=== PATIENT | female | born 1965 | race Caucasian/White ===

== ENCOUNTER 2020-07-13 16:02 | Emergency (ER) | payer MEDICARE, MEDICAID, SELFPAY ==
[2020-07-13 16:19] VITALS: BP 138/94; PULSE 95; RESP 18; TEMP 36.7; O2SAT 97
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
[2020-07-13] MEDS: Ketorolac Tromethamine 30 MG/ML VIAL IM (17:02)
[2020-07-13 17:09] VITALS: BP 138/94; PULSE 95; RESP 18; TEMP 36.7; O2SAT 97; BMI 28.8
== END 2020-07-13 17:57 | disposition home or self-care (01) ==
PROVIDERS: Emergency Provider Internal Medicine; PCP Family Medicine
DX: T23.221A Burn of second degree of single right finger (nail) except thumb, initial encounter (principal); T23.191A Burn of first degree of multiple sites of right wrist and hand, initial encounter; T31.0 Burns involving less than 10% of body surface; X10.2XXA Contact with fats and cooking oils, initial encounter; Y93.G3 Activity, cooking and baking; Y92.010 Kitchen of single-family (private) house as the place of occurrence of the external cause; Y99.9 Unspecified external cause status
CPT/HCPCS: 90471; 90715; 96372; 99284; J1885

== ENCOUNTER 2020-07-16 07:55 | Outpatient (RCR) | payer MEDICARE, MEDICAID, SELFPAY | END 2020-07-28 12:00 | disposition home or self-care (01) | LOC: HO.WCC 07:55 | PROVIDERS: PCP Family Medicine; Visit Provider Physician Assistant Surgical | DX: T23.221A Burn of second degree of single right finger (nail) except thumb, initial encounter (principal); T31.0 Burns involving less than 10% of body surface; X10.2XXA Contact with fats and cooking oils, initial encounter | CPT/HCPCS: 99213 ==

== ENCOUNTER 2020-08-15 07:57 | Emergency (ER) | payer MEDICARE, MEDICAID, SELFPAY ==
[2020-08-15 08:10] VITALS: BP 131/71; PULSE 84; RESP 20; TEMP 36.8; O2SAT 91; BMI 31.5
--- NOTE | 2020-08-15 08:35 | XR_ITS ---
EXAMINATION: XR CHEST CLINICAL INFORMATION: Shortness breath COMPARISON: Chest x-ray 03/25/2017 TECHNIQUE: Frontal view of the chest was obtained. FINDINGS: The heart size is within normal limits. Lungs are well expanded. No focal airspace consolidation is seen. There is mild interstitial prominence which is unchanged compared to prior. There is no evidence of pneumothorax or pleural effusion. No acute osseous findings. Mild left convex curvature of the spine is unchanged. XR/XR chest 1V IMPRESSION: No evidence of acute pulmonary disease.
--- NOTE | 2020-08-15 08:43 | ED_ITS ---
HPI - URI/Sore Throat General Chief Complaint: Headache Stated Complaint: FEVER COUGH Time Seen by Provider: 08/15/20 08:25 Source: patient Mode of arrival: ambulatory Limitations: no limitations History of Present Illness HPI Narrative: 55-year-old female remote history of asthma, patient presented with upper respiratory infection symptoms of low-grade fever, runny/congested nose, cough, difficulty breathing, and headache. Symptoms started yesterday. Patient declined history of exposure to somebody sick, patient has been doing isolation precaution for COVID-19 outbreak. Related Data Previous Rx's Medication Instructions Recorded dicyclomine 20 mg tablet 20 mg PO QID #360 tab 07/07/20 gabapentin 100 mg PO TID #14 cap 07/13/20 ibuprofen 600 mg PO Q8H PRN #30 tab 07/13/20 dexlansoprazole 60 mg 60 mg PO DAILY 30 Days #30 cap 08/06/20 capsule,biphase delayed release albuterol sulfate [ProAir HFA] 2 puff INHALATION Q6H PRN #18 g 08/15/20 oxymetazoline [Afrin 2 spray INTRANASAL Q12H PRN 3 Days 08/15/20 (oxymetazoline)] #15 ml prednisone 20 mg PO BID #10 tab 08/15/20 Allergies Allergy/AdvReac Type Severity Reaction Status Date / Time morphine [MORPHINE] Allergy Intermediate RAPID Verified 07/13/20 16:55 HEART RATE,ANXIOUS, swelling and rash Review of Systems Review of Systems: All other systems are reviewed and are negative Constitutional: Reports as per HPI and Reports no additional constitutional complaints Eyes: Reports as per HPI and Reports no additional eye complaints Reports system reviewed and no additional complaints, except as documented Cardiovascular: Reports as per HPI and Reports no additional cardiovascular complaints Respiratory: Reports as per HPI and Reports no additional respiratory complaints Gastrointestinal: Reports as per HPI and Reports no additional gastrointestinal complaints Genitourinary: Reports no additional female genitourinary complaints Musculoskeletal: Reports no additional musculoskeletal complaints Skin/Breast: Reports system reviewed and no additional complaints, except as docu Psychiatric: Reports no additional psychiatric complaints Endocrine: Reports no additional endocrine complaints Hematologic/Lymphatic: Reports no additional hematologic/lymphatic complaints Allergic/Immunologic: Reports no additional allergic/immunologic complaints Reports system reviewed and no additional complaints, except as documented and Reports Abnormal speech present [facility] Past Medical History Medical History Head injury High cholesterol Surgical History History of eye removal Social History Social History Smoking Status: Current every day smoker Smoked in Last 30 Days: No Use of substances other than those prescribed or required for medical reasons: No Advance Directives: Yes Advance Directives Information Provided: No Advance Directives on File: No Physical Exam Vital Signs: Vital Signs: Last Vital Signs Temp 98.3 F 08/15/20 08:10 Pulse 65 08/15/20 10:07 Resp 12 08/15/20 10:07 BP 131/74 08/15/20 10:07 Pulse Ox 91 L 08/15/20 08:10 Body Mass Index 31.5 Vital signs have been reviewed as normal and appeared to be correct. Blood pressure in the high range. Heart rate normal. Respiration rate normal. Temperature normal. Oxygen saturation in the low range. Appearance: Alert. Oriented X3. No acute distress. Head: Normal external exam. Normocephalic. Atraumatic. No Art signs noted. No raccoon eyes noted Eyes: PERRLA. EOMI. Conjunctiva and sclera normal. Eyelids normal. ENT: EAC normal. TM's Normal. Pharynx normal. Uvula midline. Dry mucous membranes. No trismus noted. No drooling noted. No muffled voice noted. Neck: Normal inspection. Neck supple. FROM. No adenopathy. Thyroid Normal. No meningeal signs. No neck mass noted. CVS: Normal heart rate and rhythm. Heart sound normal. No murmurs noted. Pulses normal throughout. Respiratory: No respiratory distress. Painless inspiration. Breath sounds normal. Positive expiratory diffuse wheezing/rales/rhonchi noted. Chest nontender. No accessory muscle usage noted or decreased air movement noted. Abdomen: Soft and nontender. Bowel sounds normal in all 4 quadrants. No distention noted. No organomegaly noted. No visible injury noted. Back: No CVA tenderness. Full range of motion noted. Skin: Skin warm and dry. Normal skin color. Normal skin turgor. No rashes/lesions/lacerations noted. Extremities: No lower extremity edema. Extremities exhibit normal range of motion. Extremities nontender. Neuro: Oriented X 3. No motor deficit. No sensory deficit. Reflexes normal. MDM - URI/Sore Throat MDM Narrative Medical decision making narrative: Assessment and plan. 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 Will discharge the patient with nasal decongestant, bronchodilator, prednisone. Lab Data Attestation: I reviewed the patient's lab results. Result diagrams: 08/15/20 09:11 08/15/20 09:11 Labs: Lab Results 08/15/20 08/15/20 08/15/20 Range/Units 09:11 09:11 09:11 WBC 11.4 H (4.8-10.8) X10*3/uL RBC 4.89 (4.20-5.50) X10*6/uL Hgb 14.8 (12.0-16.0) g/dl Hct 45.2 (37-47) % MCV 92.4 (80-98) fL MCH 30.3 (27.0-33.0) pg MCHC 32.7 (31.0-35.0) g/dl RDW 14.1 (11.0-16.0) % Plt Count 308 (160-400) X10*3/uL MPV 9.4 (9.4-12.3) fL Immature Gran % (Auto) 0.4 (0.0-0.4) % Neut % (Auto) 54.9 (45-73) % Lymph % (Auto) 33.0 (20-40) % Curry % (Auto) 7.0 (2-11) % Eos % (Auto) 3.7 (0-4) % Baso % (Auto) 1.0 (0-2) % Lymph # (Auto) 3.8 (1.2-4.9) X10*3/uL Curry # (Auto) 0.8 (0.1-1.2) X10*3/uL Eos # (Auto) 0.4 (0.0-0.4) X10*3/uL Baso # (Auto) 0.1 (0.0-0.2) X10*3/uL Abs Immat Gran (auto) 0.05 H (0.00-0.03) X10*3/uL Absolute Neuts (auto) 6.3 (2.0-8.3) X10*3/uL Absolute Nucleated RBC 0.000 (0.0-0.012) X10*3/uL Nucleated RBC % (auto) 0.0 (0.0-0.2) /100WBC Sodium 143 (135-145) mmol/L Potassium 4.4 (3.3-5.1) mmol/l Chloride 101 (96-108) mmol/L Carbon Dioxide 36 H (22-29) mmol/L Anion Gap 10 L (12-20) BUN 12 (9-16) mg/dL Creatinine 1.00 (0.5-1.4) mg/dL Estim Creat Clear Calc 63.9 Estimated GFR 58 Random Glucose 92 (60-115) mg/dL Lactic Acid 1.5 (0.5-2.0) mmol/L Calcium 9.2 (8.4-10.2) mg/dL Total Bilirubin 0.5 (0.0-1.0) mg/dL Direct Bilirubin 0.3 (0.0-0.5) mg/dL AST 44 H (5-31) U/L ALT 52 H (0-31) U/L Alkaline Phosphatase 112 (39-117) U/L Total Protein 6.7 (6.5-8.0) g/dL Albumin 4.1 (3.5-5.0) g/dL COVID-19 ([facility]) (Negative) COVID-19 Clin Com 08/15/20 Range/Units 09:11 WBC (4.8-10.8) X10*3/uL RBC (4.20-5.50) X10*6/uL Hgb (12.0-16.0) g/dl Hct (37-47) % MCV (80-98) fL MCH (27.0-33.0) pg MCHC (31.0-35.0) g/dl RDW (11.0-16.0) % Plt Count (160-400) X10*3/uL MPV (9.4-12.3) fL Immature Gran % (Auto) (0.0-0.4) % Neut % (Auto) (45-73) % Lymph % (Auto) (20-40) % Curry % (Auto) (2-11) % Eos % (Auto) (0-4) % Baso % (Auto) (0-2) % Lymph # (Auto) (1.2-4.9) X10*3/uL Curry # (Auto) (0.1-1.2) X10*3/uL Eos # (Auto) (0.0-0.4) X10*3/uL Baso # (Auto) (0.0-0.2) X10*3/uL Abs Immat Gran (auto) (0.00-0.03) X10*3/uL Absolute Neuts (auto) (2.0-8.3) X10*3/uL Absolute Nucleated RBC (0.0-0.012) X10*3/uL Nucleated RBC % (auto) (0.0-0.2) /100WBC Sodium (135-145) mmol/L Potassium (3.3-5.1) mmol/l Chloride (96-108) mmol/L Carbon Dioxide (22-29) mmol/L Anion Gap (12-20) BUN (9-16) mg/dL Creatinine (0.5-1.4) mg/dL Estim Creat Clear Calc Estimated GFR Random Glucose (60-115) mg/dL Lactic Acid (0.5-2.0) mmol/L Calcium (8.4-10.2) mg/dL Total Bilirubin (0.0-1.0) mg/dL Direct Bilirubin (0.0-0.5) mg/dL AST (5-31) U/L ALT (0-31) U/L Alkaline Phosphatase (39-117) U/L Total Protein (6.5-8.0) g/dL Albumin (3.5-5.0) g/dL COVID-19 ([facility]) Negative (Negative) COVID-19 Clin Com See Note Imaging Data Chest x-ray: Radiologist's impression: No acute intra- thoracic pathology Discharge Plan Discharge Clinical Impression: Upper respiratory infection, viral, Headache, Acute bronchitis Patient Disposition: Home, Self-Care Instructions: Acute Bronchitis (ED) Prescriptions: New Afrin (oxymetazoline) 0.05 % mist 2 spray intranasal Q12H PRN (Reason: nasal congestion) 3 Days Qty: 15 RF: 0 albuterol sulfate [ProAir HFA] 90 mcg/actuation HFA aerosol inhaler 2 puff inhalation Q6H PRN (Reason: shortness of breath or wheezing) Qty: 18 RF: 0 prednisone 20 mg tablet 20 mg PO BID Qty: 10 RF: 0 No Action dicyclomine 20 mg tablet 20 mg PO QID Qty: 360 RF: 1 Dexilant 60 mg capsule,biphase delayed releas 60 mg PO DAILY 30 Days Qty: 30 RF: 1 ibuprofen 600 mg tablet 600 mg PO Q8H PRN (Reason: pain) Qty: 30 RF: 0 gabapentin 100 mg capsule 100 mg PO TID Qty: 14 RF: 0
[2020-08-15] MEDS: 0.9 % Sodium Chloride 500 ML 1000 ML IV (09:12)
[2020-08-15] MEDS: Ketorolac Tromethamine 15 MG/ML VIAL IV (09:12)
[2020-08-15 09:19] LABS: MANUAL DIFF FLAG NO
[2020-08-15 09:20] LABS: Basophils Absolute Auto 0.1 X10*3/uL (0.0-0.2); Eosinophils Absolute Auto 0.4 X10*3/uL (0.0-0.4); Eosinophils Percent Auto 3.7 % (0-4); Hematocrit 45.2 % (37-47); Hemoglobin 14.8 g/dl (12.0-16.0); Imm Gran Abs Auto 0.05 X10*3/uL (0.00-0.03); Imm Gran Pct Auto 0.4 % (0.0-0.4); Lymphocytes Absolute Auto 3.8 X10*3/uL (1.2-4.9); Mean Corpuscular HGB Conc 32.7 g/dl (31.0-35.0); Mean Corpuscular Hemoglobin 30.3 pg (27.0-33.0); Mean Corpuscular Volume 92.4 fL (80-98); Mean Platelet Volume 9.4 fL (9.4-12.3); Monocytes Absolute Auto 0.8 X10*3/uL (0.1-1.2); Neutrophils Absolute Auto 6.3 X10*3/uL (2.0-8.3); Neutrophils Percent Auto 54.9 % (45-73); Platelet Count 308 X10*3/uL (160-400); Red Blood Count 4.89 X10*6/uL (4.20-5.50); Red Cell Distribution Width 14.1 % (11.0-16.0); White Blood Count 11.4 X10*3/uL (4.8-10.8)
[2020-08-15 09:50] LABS: COVID-19 Test Negative (Negative); IDNOW Serial# 9DD0AD1C
[2020-08-15 09:53] LABS: Lactic Acid 1.5 mmol/L (0.5-2.0)
[2020-08-15 09:58] LABS: Alanine Aminotransferase 52 U/L (0-31); Albumin Level 4.1 g/dL (3.5-5.0); Alkaline Phosphatase 112 U/L (39-117); Anion Gap 10 (12-20); Aspartate Amino Transferase 44 U/L (5-31); Bilirubin Direct 0.3 mg/dL (0.0-0.5); Bilirubin Total 0.5 mg/dL (0.0-1.0); Blood Urea Nitrogen 12 mg/dL (9-16); Carbon Dioxide 36 mmol/L (22-29); Chloride 101 mmol/L (96-108); Creatinine Clr Calc Pharmacy 63.9; Estimated Glomerular Filt Rate 58; Glucose Random 92 mg/dL (60-115); Potassium 4.4 mmol/l (3.3-5.1); Sodium 143 mmol/L (135-145); Total Protein 6.7 g/dL (6.5-8.0)
[2020-08-15 10:01] LABS: Calcium 9.2 mg/dL (8.4-10.2)
[2020-08-15 10:07] VITALS: BP 131/74; PULSE 65; RESP 12
== END 2020-08-15 11:35 | disposition home or self-care (01) ==
PROVIDERS: Emergency Provider Emergency Medicine; PCP Family Medicine
DX: J06.9 Acute upper respiratory infection, unspecified (principal); J20.8 Acute bronchitis due to other specified organisms; R50.9 Fever, unspecified; R51.9 Headache, unspecified; R05 Cough; Z20.828 Contact with and (suspected) exposure to other viral communicable diseases; Z79.899 Other long term (current) drug therapy; F17.200 Nicotine dependence, unspecified, uncomplicated; Z71.6 Tobacco abuse counseling
CPT/HCPCS: 36415; 71045; 80048; 80076; 83605; 85025; 87040; 87635; 96372; 99284; 99285; J1885

== ENCOUNTER 2020-08-22 05:04 | Emergency (ER) | payer MEDICARE, MEDICAID, SELFPAY ==
[2020-08-22 05:07] VITALS: BP 114/73; PULSE 69; RESP 20; TEMP 36.1; O2SAT 93; BMI 29.7
--- NOTE | 2020-08-22 05:25 | XR_ITS ---
EXAMINATION: XR CHEST CLINICAL INFORMATION: Dyspnea COMPARISON: 08/15/2020 TECHNIQUE: Frontal view of the chest was obtained. FINDINGS: The lungs are clear with no focal consolidation. No evidence of pneumothorax, pulmonary edema, or pleural effusions. The cardiomediastinal silhouette is unremarkable. No acute osseous findings. XR/XR chest 1V IMPRESSION: No acute cardiopulmonary findings.
--- NOTE | 2020-08-22 05:25 | ED.URI ---
HPI - URI/Sore Throat General Chief Complaint: General Medical Stated Complaint: Cough/Headache Time Seen by Provider: 08/22/20 05:24 Source: patient and old records reviewed Mode of arrival: ambulatory Limitations: no limitations History of Present Illness MD elicited complaint: cough and other (headaches) Pertinent past history: asthma Onset (ago): week(s) (1) Consistency: constant Severity: similar to previous episodes Description of mucous: clear Able to tolerate fluids by mouth: Yes Relieving factors: nothing Associated symptoms: headache and cough Treatments prior to arrival: cold medicine and other (prednisone, nebulizer treatments) Related Data Previous Rx's Medication Instructions Recorded dicyclomine 20 mg tablet 20 mg PO QID #360 tab 07/07/20 gabapentin 100 mg PO TID #14 cap 07/13/20 ibuprofen 600 mg PO Q8H PRN #30 tab 07/13/20 dexlansoprazole 60 mg 60 mg PO DAILY 30 Days #30 cap 08/06/20 capsule,biphase delayed release albuterol sulfate [ProAir HFA] 2 puff INHALATION Q6H PRN #18 g 08/15/20 oxymetazoline [Afrin 2 spray INTRANASAL Q12H PRN 3 Days 08/15/20 (oxymetazoline)] #15 ml prednisone 20 mg PO BID #10 tab 08/15/20 albuterol sulfate 2.5 mg INHALATION Q4-6H PRN #75 ml 08/22/20 doxycycline hyclate 100 mg PO BID 7 Days #14 tab 08/22/20 hydrocodone-homatropine 5 ml PO Q6H PRN #60 ml 08/22/20 Allergies Allergy/AdvReac Type Severity Reaction Status Date / Time morphine [MORPHINE] Allergy Intermediate RAPID Verified 07/13/20 16:55 HEART RATE,ANXIOUS, swelling and rash Review of Systems Review of Systems: Constitutional : No Fever, No Chills ENT/Mouth : No sore throat, No Rhinorrhea, No Swallowing Difficulty Eyes: No Eye Pain, No Swelling, No Redness Cardiovascular : No Chest Pain, positive SOB, No Orthopnea, no Edema Respiratory : pos Cough, No Sputum, pos Wheezing, positive dyspnea Gastrointestinal : No Nausea, No Vomiting, No Diarrhea, No abdominal Pain, No Hematochezia, No Melena Genitourinary : No Dysuria, No Urinary Frequency, No Hematuria Musculoskeletal : No joint pain, No Myalgias Skin : No Skin Lesions, No rash Neuro : No Weakness, No Numbness, No Dizziness, pos Headache Psych : No Anxiety/Panic, No Depression Heme/Lymph: No Bruising, No Lymphadenopathy Endocrine : No Polyuria, No Polydipsia All other systems reviewed and are negative [facility] Past Medical History Attestation statement: The following information was validated with the patient. Medical History (Updated 08/22/20 @ 07:02 by May Palomo DO) Asthma Head injury High cholesterol Surgical History History of eye removal Social History Social History (Updated 08/22/20 @ 05:33 by May Palomo DO) Smoking Status: Current every day smoker Use of substances other than those prescribed or required for medical reasons: No Advance Directives: No Advance Directives Information Provided: No Physical Exam Vital Signs: Vital Signs: Last Vital Signs Temp 99.3 F 08/22/20 06:00 Pulse 69 08/22/20 06:00 Resp 18 08/22/20 06:00 BP 122/45 L 08/22/20 06:00 Pulse Ox 94 08/22/20 06:28 Body Mass Index 29.7 Appearance: Alert. Oriented X3. No acute distress. Eyes: Pupils equal, round and reactive to light. ENT: Pharynx normal. Neck: Normal inspection. Neck supple. CVS: Normal heart rate and rhythm. Pulses normal. Respiratory: No respiratory distress. Breath sounds diffuse end exp wheezes Abdomen: Soft and nontender. Skin: Skin warm and dry. Normal skin color. Normal skin turgor. Extremities: No lower extremity edema. No calf ttp Neuro: Oriented X 3. No motor deficit. No sensory deficit. Course Course Course Narrative: feels better, clear lungs, no hypoxia stable for DC 97% on RA wants to leave, admission discharge rn to follow up with COVID results - patient aware WBC 17 due to steroids - just completed course has no fevers and negative CXR MDM - URI/Sore Throat MDM Narrative Medical decision making narrative: 55 yo female with hx of asthma just seen 1 week ago negative COVID dx with bronchitis - sent home on steroids, at this time will need labs, IV steroids, IV magnesium, CXR, repeat COVID swab, dispo per results and findings. Lab Data Result diagrams: 08/22/20 06:23 08/22/20 06:22 Labs: Lab Results 08/22/20 08/22/20 Range/Units 06:22 06:22 Hold Blue Top SEE NOTE Sodium 137 (135-145) mmol/L Potassium 4.4 (3.3-5.1) mmol/l Chloride 100 (96-108) mmol/L Carbon Dioxide 28 (22-29) mmol/L Anion Gap 13 (12-20) BUN 17 H (9-16) mg/dL Creatinine 0.84 (0.5-1.4) mg/dL Estim Creat Clear Calc 74.0 Estimated GFR > 60 Random Glucose 100 (60-115) mg/dL Calcium 8.8 (8.4-10.2) mg/dL Discharge Plan Discharge Clinical Impression: Bronchitis Patient Disposition: Home, Self-Care Instructions: Acute Bronchitis (ED) Additional Instructions: return to ED for any worsening symptoms or concerns Prescriptions: New hydrocodone-homatropine 5-1.5 mg/5 mL (5 mL) syrup 5 ml PO Q6H PRN (Reason: cough) Qty: 60 RF: 0 doxycycline hyclate 100 mg tablet 100 mg PO BID 7 Days Qty: 14 RF: 0 albuterol sulfate 2.5 mg /3 mL (0.083 %) solution for nebulization 2.5 mg inhalation Q4-6H PRN (Reason: shortness of breath or wheezing) Qty: 75 RF: 0 No Action dicyclomine 20 mg tablet 20 mg PO QID Qty: 360 RF: 1 Dexilant 60 mg capsule,biphase delayed releas 60 mg PO DAILY 30 Days Qty: 30 RF: 1 Afrin (oxymetazoline) 0.05 % mist 2 spray intranasal Q12H PRN (Reason: nasal congestion) 3 Days Qty: 15 RF: 0 albuterol sulfate [ProAir HFA] 90 mcg/actuation HFA aerosol inhaler 2 puff inhalation Q6H PRN (Reason: shortness of breath or wheezing) Qty: 18 RF: 0 prednisone 20 mg tablet 20 mg PO BID Qty: 10 RF: 0 ibuprofen 600 mg tablet 600 mg PO Q8H PRN (Reason: pain) Qty: 30 RF: 0 gabapentin 100 mg capsule 100 mg PO TID Qty: 14 RF: 0 Referrals: Sofia Gonzalez MD [Primary Care Provider] - 2 days (if not better) Print Language: Montenegrin
[2020-08-22 05:41] VITALS: PULSE 69; O2SAT 93
[2020-08-22] MEDS: Albuterol Sulfate (0.083%) 2.5 MG/3 ML VIAL.NEB 5 MG INHALE (05:41)
[2020-08-22] MEDS: Magnesium Sulfate/H2O 2 GM/50 ML PIGGYBACK IV (05:44)
[2020-08-22] MEDS: methylPREDNISolone Sod Succ/PF 125 MG/2 ML VIAL 60 MG IVPUSH (05:44)
--- NOTE | 2020-08-22 05:45 | PC.NURSE ---
PATIENT REFUSED TYLENOL AND HYDROCODONE LIQUID. PT REQUESTING IV PAIN MEDICATION . AWARE. PATIENT MEDICATED WITH VENTOLIN, SOLUMEDROL, AND MAGNESIUM SULFATE ORDERED. RESPIRATORY THERAPIST ALSO AT BEDSIDE. 98% ON ROOM AIR CURRENTLY AFTER VENTOLIN INITIATED. PT IS AUSTR[place] SPEAKING.
[2020-08-22 06:00] VITALS: BP 122/45; PULSE 69; RESP 18; TEMP 37.4; O2SAT 93
[2020-08-22] MEDS: Ketorolac Tromethamine 30 MG/ML VIAL IVPUSH (06:27)
[2020-08-22 06:28] VITALS: O2SAT 94
[2020-08-22 06:42] LABS: Hematocrit 43.3 % (37-47); Hemoglobin 14.3 g/dl (12.0-16.0); Mean Corpuscular Hemoglobin 29.9 pg (27.0-33.0); Mean Corpuscular Volume 90.6 fL (80-98); Mean Platelet Volume 9.2 fL (9.4-12.3); Platelet Count 334 X10*3/uL (160-400); Red Blood Count 4.78 X10*6/uL (4.20-5.50); White Blood Count 17.6 X10*3/uL (4.8-10.8)
[2020-08-22 06:58] LABS: Anion Gap 13 (12-20); Blood Urea Nitrogen 17 mg/dL (9-16); Calcium 8.8 mg/dL (8.4-10.2); Carbon Dioxide 28 mmol/L (22-29); Chloride 100 mmol/L (96-108); Estimated Glomerular Filt Rate > 60; Glucose Random 100 mg/dL (60-115); Potassium 4.4 mmol/l (3.3-5.1); Sodium 137 mmol/L (135-145)
[2020-08-22 07:13] LABS: SLIDE REVIEW MANUAL DIFF
[2020-08-22 07:16] LABS: Atypical Lymph Absolute Manual 0.2 x10*3/uL; Atypical Lymphs Percent Manual 1 % (0-6); Basophils Abs Manual 0.2 X10*3/uL (0.0-0.3); Basophils Percent Manual 1 % (0-1); Eosinophils Absolute Manual 0.4 X10*3/UL (0.0-0.8); Eosinophils Percent Manual 2 % (0-4); Lymphocytes Absolute Manual 7.9 X10*3/uL (0.6-4.8); Lymphocytes Percent Manual 45 % (20-40); Metamyelocytes Absolute 0.4 X10*3/uL; Metamyelocytes Percent 2 %; Monocytes Absolute Manual 0.7 X10*3/uL (0.0-1.2); Monocytes Percent Manual 4 % (2-11); Neutrophils Percent Manual 45 % (45-73)
[2020-08-22 07:17] LABS: Band Neutrophils Percent 0 % (3-5); Neutrophils Absolute Manual 7.9 X10*3/uL (2.2-7.9); Platelet Estimate NORMAL (NORMAL); Platelet Morphology Comment NORMAL; RBC Morphology NORMAL
[2020-08-22 07:18] VITALS: O2SAT 97
[2020-08-22 07:23] LABS: Influenza A PCR NEGATIVE (Negative); Influenza B PCR NEGATIVE (Negative); Resp Syncy Virus RNA Qual PCR NEGATIVE (Negative); SARS COV2 PCR INHOUSE NEGATIVE (Negative)
== END 2020-08-22 07:29 | disposition home or self-care (01) ==
PROVIDERS: Emergency Provider Emergency Medicine; PCP Family Medicine
DX: J20.8 Acute bronchitis due to other specified organisms (principal); R05 Cough; Z20.828 Contact with and (suspected) exposure to other viral communicable diseases; F17.200 Nicotine dependence, unspecified, uncomplicated; Z71.6 Tobacco abuse counseling
CPT/HCPCS: 0241U; 36415; 71045; 80048; 85007; 85025; 85027; 94640; 96365; 96374; 96375; 99284; J1885; J2930; J3475

== ENCOUNTER → 2020-08-25 10:43 | Outpatient (BNVA) | payer MEDICARE, MEDICAID, SELFPAY | PROVIDERS: PCP Family Medicine; Referring Provider Family Medicine; Visit Provider Nurse Practitioner | DX: K58.1 Irritable bowel syndrome with constipation (principal); K59.04 Chronic idiopathic constipation; R14.0 Abdominal distension (gaseous); K21.9 Gastro-esophageal reflux disease without esophagitis; R13.10 Dysphagia, unspecified; Z79.899 Other long term (current) drug therapy | CPT/HCPCS: Q3014 ==

== ENCOUNTER 2020-09-01 01:50 | Emergency (ER) | payer MEDICARE, MEDICAID, SELFPAY ==
[2020-09-01 02:12] VITALS: BP 133/75; PULSE 75; RESP 18; TEMP 36.9; O2SAT 95; BMI 29.2
--- NOTE | 2020-09-01 03:24 | ED.HA ---
HPI - Headache General Chief Complaint: Upper Respiratory Symptoms Stated Complaint: HEADACHE/COUGH Time Seen by Provider: 09/01/20 03:23 Source: patient Mode of arrival: ambulatory Limitations: no limitations History of Present Illness HPI Narrative: This is a 55-year-old female who states that she has recently been treated with a course of antibiotics for bronchitis for which she has completed without any residual symptoms. She states that she currently is having some pain across her left cheek and then describes some pain over the left side of her scalp without associated ear pain, sore throat, but is having some nasal congestion with runny nose . She states that she does suffer from migraines and that Toradol works very well for her. She endorses that she has been tested 3 times for COVID-19 and that they have all been negative. Related Data Home Medications Medication Instructions Recorded Confirmed simethicone 180 mg capsule 180 mg PO QID PRN cap 08/24/20 08/24/20 Previous Rx's Medication Instructions Recorded dicyclomine 20 mg tablet 20 mg PO QID #360 tab 07/07/20 gabapentin 100 mg PO TID #14 cap 07/13/20 ibuprofen 600 mg PO Q8H PRN #30 tab 07/13/20 dexlansoprazole 60 mg 60 mg PO DAILY 30 Days #30 cap 08/06/20 capsule,biphase delayed release albuterol sulfate [ProAir HFA] 2 puff INHALATION Q6H PRN #18 g 08/15/20 oxymetazoline [Afrin 2 spray INTRANASAL Q12H PRN 3 Days 08/15/20 (oxymetazoline)] #15 ml prednisone 20 mg PO BID #10 tab 08/15/20 albuterol sulfate 2.5 mg INHALATION Q4-6H PRN #75 ml 08/22/20 doxycycline hyclate 100 mg PO BID 7 Days #14 tab 08/22/20 hydrocodone-homatropine 5 ml PO Q6H PRN #60 ml 08/22/20 lubiprostone 24 mcg capsule 24 mcg PO BID 30 Days #60 cap 08/25/20 Allergies Allergy/AdvReac Type Severity Reaction Status Date / Time morphine [MORPHINE] Allergy Intermediate RAPID Verified 09/01/20 02:11 HEART RATE,ANXIOUS, swelling and rash Review of Systems Review of Systems: Pertinent positives and negatives as stated in HPI and 10 point review of systems is otherwise negative. PMFSH Past Medical History Source: nursing notes reviewed Medical History Asthma Head injury High cholesterol Surgical History History of esophagogastroduodenoscopy (EGD) History of eye removal Hx of colonoscopy Family History Family History Mother Breast cancer Sister Breast cancer Brother Esophagus cancer Social History Social History Alcohol intake: current Alcohol intake frequency: does not drink Smoking Status: Current every day smoker Tobacco Type: Cigarette Cigarettes Per Day: 5 Use of substances other than those prescribed or required for medical reasons: No Advance Directives: No Advance Directives Information Provided: No Physical Exam Vital Signs: Vital Signs: Last Vital Signs Temp 96.9 F 09/01/20 04:00 Pulse 62 09/01/20 04:00 Resp 18 09/01/20 04:00 BP 128/80 09/01/20 04:00 Pulse Ox 96 09/01/20 04:23 Body Mass Index 29.2 VITAL SIGNS: Reviewed. GENERAL: Well developed, well nourished, in no acute distress. HEAD: Normocephalic/atraumatic, EYES: PERRLA, EOMI intact without pain, no nystagmus/pallor/icterus noted EARS: Ext canals without abnormality, TMs non-bulging and non-erythematous NOSE: Nares patent bilateral OROPHARYNX: no oral lesions noted, posterior pharynx clear and non-erythematous without noted tonsillar enlargement/erythema/exudates NECK: Supple, no adenopathy LUNGS: Normal breath sounds. No adventitious sounds or accessory muscle use. SpO2<95> CARDIOVASCULAR: Regular rate and rhythm without noted murmurs, no JVD or lower extremity edema. ABDOMEN: Soft, non-tender, non-distended with bowel sounds. No rigidity. No guarding. No palpable masses or hernias noted MUSCULOSKELETAL: No tenderness, deformities, or effusions noted on gross inspection. EXTREMITIES: No cyanosis, clubbing or edema. SKIN: Inspection of the skin reveals no rashes, ulcerations, jaundice, pallor, or petechiae. NEUROLOGIC: Alert and oriented x 4. Strength and sensation to light touch were grossly intact x 4. Course Course Course Narrative: This is a 55-year-old female with history and clinical presentation consistent with headache secondary to likely sinus congestion or infection. Patient will receive combination analgesics and be re-evaluated. As she is not febrile and has good drainage at this time will hold off on prescribing antibiotics. There were no clinical findings to support any neurologic etiologies. Patient eloped Discharge Plan Discharge Clinical Impression: Headache, Sinusitis Patient Disposition: Elopement Instructions: Rhinosinusitis (ED), General Headache (ED) Additional Instructions: 1. Tylenol 1000 mg, orally, every 6 hours as needed for pain control. Do not exceed 4000 mg within 24 hours. 2. ibuprofen 400 mg, orally with milk or food, every 6 hours as needed for pain control. 3. increase fluid hydration especially with water. The patient and/or family acknowledge understanding of results (as applicable), diagnosis, treatment plan, need for follow up, and symptoms that should prompt a return to the emergency room. Prescriptions: No Action dicyclomine 20 mg tablet 20 mg PO QID Qty: 360 RF: 1 Dexilant 60 mg capsule,biphase delayed releas 60 mg PO DAILY 30 Days Qty: 30 RF: 1 Afrin (oxymetazoline) 0.05 % mist 2 spray intranasal Q12H PRN (Reason: nasal congestion) 3 Days Qty: 15 RF: 0 albuterol sulfate [ProAir HFA] 90 mcg/actuation HFA aerosol inhaler 2 puff inhalation Q6H PRN (Reason: shortness of breath or wheezing) Qty: 18 RF: 0 prednisone 20 mg tablet 20 mg PO BID Qty: 10 RF: 0 ibuprofen 600 mg tablet 600 mg PO Q8H PRN (Reason: pain) Qty: 30 RF: 0 gabapentin 100 mg capsule 100 mg PO TID Qty: 14 RF: 0 hydrocodone-homatropine 5-1.5 mg/5 mL (5 mL) syrup 5 ml PO Q6H PRN (Reason: cough) Qty: 60 RF: 0 doxycycline hyclate 100 mg tablet 100 mg PO BID 7 Days Qty: 14 RF: 0 albuterol sulfate 2.5 mg /3 mL (0.083 %) solution for nebulization 2.5 mg inhalation Q4-6H PRN (Reason: shortness of breath or wheezing) Qty: 75 RF: 0 simethicone [Gas Relief (simethicone)] 180 mg capsule 180 mg PO QID PRNRF: 0 Amitiza 24 mcg capsule 24 mcg PO BID 30 Days Qty: 60 RF: 3 Referrals: Physician,Unknown [Primary Care Provider] - 2 days ( For re-evaluation of sinusitis and headache) Interventions: ED Discharge Assessment Last Done: 09/01/20 04:24
[2020-09-01] MEDS: Ketorolac Tromethamine 15 MG/ML VIAL IM (03:40)
[2020-09-01] MEDS: Acetaminophen 325 MG TABLET 975 MG PO (03:40)
--- NOTE | 2020-09-01 03:43 | PC.NURSE ---
patient medicated per emar as noted.
[2020-09-01 04:00] VITALS: BP 128/80; BP 132/74; PULSE 62; PULSE 75; RESP 18; TEMP 36.1; TEMP 36.9; O2SAT 95; O2SAT 98
[2020-09-01 04:23] VITALS: O2SAT 96
== END 2020-09-01 04:38 | disposition left against medical advice (07) ==
PROVIDERS: Emergency Provider Student in an Organized Health Care Education/Training Program
DX: J01.90 Acute sinusitis, unspecified (principal); R05 Cough; R51.9 Headache, unspecified; Z79.899 Other long term (current) drug therapy; F17.210 Nicotine dependence, cigarettes, uncomplicated; Z71.6 Tobacco abuse counseling
CPT/HCPCS: 96372; 99284; 99285; J1885

== ENCOUNTER → 2020-09-16 09:27 | Outpatient (BNVA) | payer MEDICARE, MEDICAID, SELFPAY | PROVIDERS: PCP Family Medicine; Visit Provider Nurse Practitioner | DX: Z13.89 Encounter for screening for other disorder (principal) | CPT/HCPCS: Q3014 ==

== ENCOUNTER → 2020-09-21 12:28 | Outpatient (BNVA) | payer MEDICARE, MEDICAID, SELFPAY | PROVIDERS: PCP Family Medicine; Visit Provider Student in an Organized Health Care Education/Training Program | DX: Z76.89 Persons encountering health services in other specified circumstances (principal) | CPT/HCPCS: Q3014 ==

== ENCOUNTER 2020-10-13 10:21 | Outpatient (REF) | payer MEDICARE, MEDICAID, SELFPAY ==
--- NOTE | 2020-10-13 10:24 | CT_ITS ---
EXAMINATION: CT SINUS WITHOUT CONTRAST CLINICAL INFORMATION: Sinonasal polyp. COMPARISON: None. TECHNIQUE: 2 mm thin axial and reformatted 2 mm thin sagittal and coronal images of sinuses were obtained. This CT examination was performed using dose optimization techniques as appropriate, variously including the following: *Automated exposure control *Adjustment of mA and/or kV according to patient size (this includes techniques or standardized protocols for targeted exams where dose is matched to indication/reason for exam; i.e. extremities or head) *Use of iterative reconstruction technique DLP: 113 mGy-cm. FINDINGS: There is normal aeration of bilateral frontal, ethmoid, maxillary and sphenoid sinuses. Bilateral ostiomeatal complex and frontoethmoidal recesses are widely patent. A small 4 mm polyp or retention cyst seen along the right medial maxillary wall. The bony sinus berg, lamina papyracea and cribriform plate appear normal. There is a depressed left infraorbital wall with radiopaque calcified/metallic like density in the extraconal soft tissues. These small densities appear to be extending posterior to the optic foramina, most likely from previous intervention. The left optic globe has a thick anterior prosthetic wall from previous intervention. The right bony orbit, optic globe and optic nerve appear intact. NASAL CAVITY/NASOPHARYNX: The nasal cavity is clear. There is mild deviation of nasal septum to the left with a tiny bony spur. The nasopharynx is symmetric and the airway is patent. ADDITIONAL RELEVANT FINDINGS: No periapical disease is seen. The TMJs articulate normally. The orbits and skull base soft tissues are unremarkable. There are dense radiopaque coils in the posterior fossa likely from aneurysm coiling. The middle ear cavities and mastoid air cells are clear. Limited evaluation demonstrates no acute intracranial findings. CT/CT sinus wo con IMPRESSION: Widely patent sinuses with a small polyp or retention cyst right maxillary sinus medial wall. The rest of the paranasal sinuses are well aerated. The bony sinus berg are intact. There is mild depressed left inferior orbital wall with radiopaque metallic densities, extraconal, extending to the orbital apex from previous intervention. There is a dense round ball of coils within the pituitary fossa, likely from aneurysm coiling. Correlate with past history. Mild deviation of the nasal septum to the left with a small bony spur.
== END 2020-10-13 10:22 | disposition home or self-care (01) ==
LOC: HO.CT 10:21
PROVIDERS: Visit Provider Otolaryngology
DX: J33.9 Nasal polyp, unspecified (principal)
CPT/HCPCS: 70486

== ENCOUNTER → 2020-11-03 14:28 | Outpatient (BNVA) | payer MEDICARE, MEDICAID, SELFPAY | PROVIDERS: PCP Family Medicine; Visit Provider Nurse Practitioner | DX: K59.04 Chronic idiopathic constipation (principal); R14.0 Abdominal distension (gaseous); R13.10 Dysphagia, unspecified; K21.9 Gastro-esophageal reflux disease without esophagitis; K58.9 Irritable bowel syndrome, unspecified; R10.32 Left lower quadrant pain | CPT/HCPCS: 99212 ==

== ENCOUNTER 2020-11-11 08:53 | Outpatient (REF) | payer MEDICARE, MEDICAID, SELFPAY | END 2020-11-11 08:54 | disposition home or self-care (01) | LOC: HO.LAB 08:53 | PROVIDERS: Visit Provider Internal Medicine | DX: Z20.822 Contact with and (suspected) exposure to COVID-19 (principal) | CPT/HCPCS: 36415; C9803; Q3014; U0003; U0005 ==

== ENCOUNTER 2020-11-17 06:05 | Outpatient (REF) | payer MEDICARE, MEDICAID, SELFPAY ==
--- NOTE | ~2020-11-17 | CT_ITS ---
EXAMINATION: CT ABDOMEN AND PELVIS WITH CONTRAST CLINICAL INFORMATION: Lower quadrant pain COMPARISON: Left lower quadrant pain TECHNIQUE: Multidetector volumetric images were obtained from the superior aspect of the liver through the pubic symphysis following administration 85 mL of Omnipaque 350 intravenous contrast. Sagittal and coronal reformatted images were obtained on the technologist's workstation. Oral contrast: Yes This CT examination was performed using dose optimization techniques as appropriate, variously including the following: *Automated exposure control *Adjustment of mA and/or kV according to patient size (this includes techniques or standardized protocols for targeted exams where dose is matched to indication/reason for exam; i.e. extremities or head) *Use of iterative reconstruction technique DLP: 432 mGy-cm FINDINGS: LUNG BASES: There is a 2 mm right middle lobe nodule axial image 4 series 3. This is adjacent to the minor fissure and may represent a subpleural lymph node. There is a 2 mm calcified left lower lobe nodule axial image 163 series 4. These are stable from previous exams. The lung bases are otherwise clear. There may be wall thickening of the distal thoracic esophagus. LIVER, GALLBLADDER, AND BILIARY TREE: The liver is low in attenuation suggestive of fatty infiltration. No focal liver lesion or biliary duct dilatation. The gallbladder has been removed. PANCREAS: Unremarkable. SPLEEN: Unremarkable. ADRENAL GLANDS: Unremarkable. KIDNEYS AND URETERS: There is a small low-attenuation lesion in the upper pole of the left kidney probably representing a cyst. The kidneys are otherwise unremarkable. BLADDER: Unremarkable. GASTROINTESTINAL TRACT: There is stool throughout the colon questionable for constipation. Small and large bowel is otherwise unremarkable. The appendix has been removed. The stomach is unremarkable. ABDOMINAL WALL: There is question of a small supraumbilical or ventral hernia containing fat sagittal reconstructed image 60. This is not definite definitely identified on axial images. LYMPH NODES: There is a calcified mesenteric lymph node is upper normal in size measuring 1 cm. VASCULAR: Unremarkable. PELVIC VISCERA: The uterus has been removed. No pelvic mass is seen. OSSEOUS STRUCTURES: There is spondylolysis, spondylolisthesis and degenerative disc disease at L5-S1. CT/CT abdomen pelvis w con IMPRESSION: Fatty liver. Post cholecystectomy. Stool throughout the colon questionable for constipation. Question wall thickening of the distal thoracic esophagus.
[2020-11-17 07:04] LABS: Basophils Absolute Auto 0.1 X10*3/uL (0.0-0.2); Eosinophils Absolute Auto 0.4 X10*3/uL (0.0-0.4); Hematocrit 47.4 % (37-47); Hemoglobin 15.5 g/dl (12.0-16.0); Imm Gran Abs Auto 0.03 X10*3/uL (0.00-0.03); Imm Gran Pct Auto 0.3 % (0.0-0.4); Lymphocytes Absolute Auto 5.1 X10*3/uL (1.2-4.9); Lymphocytes Percent Auto 53.2 % (20-40); MANUAL DIFF FLAG SCAN; Mean Corpuscular HGB Conc 32.7 g/dl (31.0-35.0); Mean Corpuscular Hemoglobin 30.3 pg (27.0-33.0); Mean Corpuscular Volume 92.8 fL (80-98); Monocytes Absolute Auto 0.7 X10*3/uL (0.1-1.2); Monocytes Percent Auto 7.1 % (2-11); Neutrophils Absolute Auto 3.3 X10*3/uL (2.0-8.3); Neutrophils Percent Auto 34.4 % (45-73); Platelet Count 319 X10*3/uL (160-400); Red Blood Count 5.11 X10*6/uL (4.20-5.50); Red Cell Distribution Width 13.4 % (11.0-16.0); SCAN SMEAR FLAG 1; White Blood Count 9.6 X10*3/uL (4.8-10.8)
[2020-11-17 07:28] LABS: Blood Urea Nitrogen 12 mg/dL (9-16); Estimated Glomerular Filt Rate > 60
[2020-11-17 07:52] LABS: SLIDE REVIEW VERIFIED
[2020-11-17] MEDS: iohexoL 350 MG/ML 100 ML INFUS..BTL IV (09:14)
[2020-11-17] MEDS: Barium Sulfate Oral (Mocha) 450 ML ORAL.SUSP 900 ML PO (09:15)
== END 2020-11-17 06:06 | disposition home or self-care (01) ==
LOC: HO.CT 06:05
PROVIDERS: PCP Family Medicine; Visit Provider Nurse Practitioner
DX: R10.32 Left lower quadrant pain (principal)
CPT/HCPCS: 36415; 74177; 82565; 84520; 85025; Q9967

== ENCOUNTER → 2020-11-26 08:32 | Outpatient (BNVA) | payer MEDICARE, MEDICAID, SELFPAY | PROVIDERS: PCP Family Medicine; Visit Provider Nurse Practitioner | DX: Z13.89 Encounter for screening for other disorder (principal) | CPT/HCPCS: Q3014 ==

== ENCOUNTER → 2021-01-05 07:51 | Outpatient (BNVA) | payer MEDICARE, MEDICAID, SELFPAY | PROVIDERS: PCP Family Medicine; Referring Provider Family Medicine; Visit Provider Internal Medicine | DX: E23.0 Hypopituitarism (principal); E23.2 Diabetes insipidus; E03.8 Other specified hypothyroidism; E27.49 Other adrenocortical insufficiency; E55.9 Vitamin D deficiency, unspecified; F17.200 Nicotine dependence, unspecified, uncomplicated; Z71.6 Tobacco abuse counseling; Z79.899 Other long term (current) drug therapy | CPT/HCPCS: Q3014 ==

== ENCOUNTER 2021-01-14 08:55 | Outpatient (REF) | payer MEDICARE, MEDICAID, SELFPAY ==
[2021-01-14 09:58] LABS: Anion Gap 13 (12-20); Blood Urea Nitrogen 11 mg/dL (9-16); Calcium 9.5 mg/dL (8.4-10.2); Carbon Dioxide 31 mmol/L (22-29); Chloride 102 mmol/L (96-108); Estimated Glomerular Filt Rate > 60; Glucose Random 93 mg/dL (60-115); Potassium 4.2 mmol/L (3.3-5.1); Sodium 142 mmol/L (135-145)
[2021-01-14 10:18] LABS: Osmolality, Serum 300 mosm/kg (281-305)
[2021-01-14 10:22] LABS: Free T4 (Free Thyroxine) 0.86 ng/dL (0.71-1.85); Thyroid Stimulating Hormone 0.17 uIU/mL (0.32-4.0)
[2021-01-14 10:43] LABS: Osmolality Urine 513 mosm/kg (373-1093)
[2021-01-15 08:01] LABS: Triiodothyronine T3 Total 102 ng/dL (76-181)
[2021-01-15 10:02] LABS: Sex Hormone Binding Globulin 45 nmol/L (17-124)
[2021-01-17 06:41] LABS: Follicle Stimulating Hormone 3.2 mIU/mL; Lutenizing Hormone 1.1 mIU/mL; Prolactin Undiluted 1.5 ng/mL
[2021-01-17 15:02] LABS: Adrenocorticotropic Hormone 8 pg/mL (6-50)
[2021-01-19 11:17] LABS: IGF-1 (Somatomedin C) 49 ng/mL (50-317)
[2021-01-19 21:47] LABS: Estradiol Ultra Sensitive 5 pg/mL
[2021-01-28 03:07] LABS: Estradiol Free <0.04 pg/mL; Estradiol, Ultrasensitive <2 pg/mL
== END 2021-01-14 08:56 | disposition home or self-care (01) ==
LOC: HO.LAB 08:55
PROVIDERS: PCP Family Medicine; Visit Provider Internal Medicine
DX: E23.0 Hypopituitarism (principal)
CPT/HCPCS: 36415; 80048; 82024; 82533; 82670; 82681; 83001; 83002; 83930; 83935; 84146; 84270; 84305; 84439; 84443; 84480

== ENCOUNTER 2021-01-26 08:15 | Outpatient (REF) | payer MEDICARE, MEDICAID, SELFPAY | END 2021-01-26 08:16 | disposition home or self-care (01) | LOC: HO.CT 08:15 | PROVIDERS: Visit Provider Internal Medicine | DX: Z13.89 Encounter for screening for other disorder (principal) ==

== ENCOUNTER → 2021-02-18 10:17 | Outpatient (BNVA) | payer MEDICARE, MEDICAID, SELFPAY | PROVIDERS: PCP Family Medicine; Visit Provider Nurse Practitioner | DX: K58.9 Irritable bowel syndrome, unspecified (principal); K21.9 Gastro-esophageal reflux disease without esophagitis; K59.04 Chronic idiopathic constipation; R13.10 Dysphagia, unspecified; R14.0 Abdominal distension (gaseous); R10.32 Left lower quadrant pain; Z83.71 Family history of colonic polyps | CPT/HCPCS: Q3014 ==

== ENCOUNTER → 2021-02-23 07:42 | Outpatient (BNVA) | payer MEDICARE, MEDICAID, SELFPAY | PROVIDERS: PCP Family Medicine; Visit Provider Internal Medicine | DX: E23.0 Hypopituitarism (principal); E23.2 Diabetes insipidus; E27.49 Other adrenocortical insufficiency; E03.8 Other specified hypothyroidism; E55.9 Vitamin D deficiency, unspecified | CPT/HCPCS: Q3014 ==

== ENCOUNTER 2021-04-10 09:32 | Emergency (ER) | payer MEDICARE, MEDICAID, SELFPAY ==
[2021-04-10 09:38] VITALS: BP 112/71; PULSE 70; RESP 16; TEMP 36.6; O2SAT 98; BMI 29.2
--- NOTE | 2021-04-10 10:27 | ED_ITS ---
HPI - General Adult General Chief complaint: Extremity Injury, Lower Stated complaint: PAIN BACK DOWN R LEG Time Seen by Provider: 04/10/21 10:26 Source: patient Limitations: no limitations History of Present Illness HPI narrative: Patient presents with right lower back pain radiating down right leg. Pain has been increasing over the past 2-3 days. Patient has a longstanding history of right leg sciatica and lower back pain. Patient is on methadone daily at 63 mg. Patient states she is also allergic to morphine. Pain has made it difficult for her to sleep at night. Symptoms of moderate severe. Pain is 8/10. No recent trauma or falls. No other complaints this time. Related Data Home Medications Medication Instructions Recorded Confirmed simethicone 180 mg capsule 180 mg PO QID PRN cap 08/24/20 02/23/21 methadone 10 mg/mL oral concentrate 10 mg PO DAILY 09/21/20 02/23/21 pregabalin 75 mg capsule 75 mg PO BID 09/21/20 02/23/21 cholecalciferol (vitamin D3) 25 25 mcg PO DAILY 01/05/21 02/23/21 mcg (1,000 unit) capsule desmopressin 0.2 mg tablet See Rx Instructions PO .COMPLEX 01/05/21 02/23/21 hydrocortisone 5 mg tablet See Rx Instructions PO DAILY 01/05/21 02/23/21 levothyroxine 112 mcg tablet 112 mcg PO DAILY 01/05/21 02/23/21 pravastatin 20 mg tablet 20 mg PO BEDTIME 01/05/21 02/23/21 Previous Rx's Medication Instructions Recorded ibuprofen 600 mg PO Q8H PRN #30 tab 07/13/20 albuterol sulfate [ProAir HFA] 2 puff INHALATION Q6H PRN #18 g 08/15/20 oxymetazoline [Afrin 2 spray INTRANASAL Q12H PRN 3 Days 08/15/20 (oxymetazoline)] #15 ml albuterol sulfate 2.5 mg INHALATION Q4-6H PRN #75 ml 08/22/20 doxycycline hyclate 100 mg PO BID 7 Days #14 tab 08/22/20 lubiprostone 24 mcg capsule 24 mcg PO BID 30 Days #60 cap 09/16/20 sennosides 8.6 mg-docusate sodium 2 tab-cap PO BEDTIME 30 Days #60 11/26/20 50 mg tablet tab hydrocortisone sod succ (PF) 100 100 mg IM ONCE PRN 30 Days #1 ea 02/23/21 mg/2 mL solution for injection dexlansoprazole 60 mg 60 mg PO DAILY #30 cap 03/16/21 capsule,biphase delayed release dicyclomine 20 mg tablet 40 mg PO QID 30 Days #240 tab 03/23/21 methocarbamol 750 mg PO TID PRN #30 tab 04/10/21 prednisone 40 mg PO DAILY 5 Days #10 tab 04/10/21 Allergies Allergy/AdvReac Type Severity Reaction Status Date / Time morphine [MORPHINE] Allergy Intermediate RAPID Verified 02/23/21 08:30 HEART RATE,ANXIOUS, swelling and rash Review of Systems Constitutional: Constitutional: Denies chills, Denies fever(s), Denies frequent falls and Denies weakness Cardiovascular: Cardiovascular: Denies chest pain, Denies Loss of Consciousness and Denies dyspnea Respiratory: Respiratory: Denies cough and Denies dyspnea Gastrointestinal: Gastrointestinal: Denies nausea and Denies vomiting Musculoskeletal: Musculoskeletal: Reports numbness and Reports radiating pain into limb Comments: Right-sided lower back pain right-sided leg pain Neurologic: Reports system reviewed and no additional complaints, except as documented, Denies frequent falls, Reports numbness, Denies restless legs and Denies weakness [facility] Past Medical History Medical History Asthma Diabetes insipidus Fibromyalgia Head injury High cholesterol Panhypopituitarism Secondary adrenal insufficiency Secondary hypothyroidism Vitamin D deficiency Surgical History History of esophagogastroduodenoscopy (EGD) History of eye removal Hx of colonoscopy Family History Family History Mother Breast cancer Sister Breast cancer Brother Esophagus cancer Social History Social History Household Members: Spouse Alcohol intake: never Cigarettes Per Day: 7 Smoked in Last 30 Days: No Use of substances other than those prescribed or required for medical reasons: No Advance Directives: Yes Advance Directives Information Provided: Yes Advance Directives on File: No Patient : No Physical Exam Vital Signs: Vital Signs: Last Vital Signs Temp 97.9 F 04/10/21 09:38 Pulse 70 04/10/21 09:38 Resp 16 04/10/21 09:38 BP 112/71 04/10/21 09:38 Pulse Ox 98 04/10/21 09:38 Body Mass Index 29.2 vital signs have been reviewed as normal and appeared to be correct. Blood pressure normal. Heart rate normal. Respiration rate normal. Temperature normal. Oxygen saturation normal. Appearance: Alert. Oriented X3. No acute distress. Head: Normal external exam. Normocephalic. Atraumatic. Eyes: PERRLA. EOMI. Conjunctiva and sclera normal. Eyelids normal. ENT: Pharynx normal. Uvula midline. Moist mucous membranes. Neck: Soft full range of motion CVS: Heart regular rate and rhythm no murmurs and rubs Respiratory: Breath sounds are clear to auscultation bilaterally. No accessory muscle use noted. Back: paraspinal muscle tenderness of the lumbar spine on the right side greater than left no midline tenderness. Skin: Skin warm and dry. Normal skin color. Normal skin turgor. No rashes/lesions/lacerations noted. Extremities: No footdrop noted on the right lower extremity positive straight leg raise on the right. Sensation pulses intact. Neuro: Oriented X 3. No motor deficit. No sensory deficit. Patient is ambulatory with a limp Course Course Course Narrative: Right leg sciatica Lumbar strain Disc disease Disc herniation 30 mg Toradol IM 60 mg prednisone p.o. symptoms consistent with right leg sciatica lumbar strain potentially underlying disc disease. Plan to have patient follow-up with PCP in physical therapy Discharge Plan Discharge Clinical Impression: Sciatica associated with disorder of lumbar spine Patient Disposition: Home, Self-Care Instructions: Sciatica (ED), Lower Back Exercises (ED) Prescriptions: New prednisone 20 mg tablet 40 mg PO DAILY 5 Days Qty: 10 RF: 0 methocarbamol 750 mg tablet 750 mg PO TID PRN (Reason: muscle spasm) Qty: 30 RF: 0 No Action Dexilant 60 mg capsule,biphase delayed releas 60 mg PO DAILY Qty: 30 RF: 0 dicyclomine 20 mg tablet 40 mg PO QID 30 Days Qty: 240 RF: 6 Afrin (oxymetazoline) 0.05 % mist 2 spray intranasal Q12H PRN (Reason: nasal congestion) 3 Days Qty: 15 RF: 0 albuterol sulfate [ProAir HFA] 90 mcg/actuation HFA aerosol inhaler 2 puff inhalation Q6H PRN (Reason: shortness of breath or wheezing) Qty: 18 RF: 0 ibuprofen 600 mg tablet 600 mg PO Q8H PRN (Reason: pain) Qty: 30 RF: 0 doxycycline hyclate 100 mg tablet 100 mg PO BID 7 Days Qty: 14 RF: 0 albuterol sulfate 2.5 mg /3 mL (0.083 %) solution for nebulization 2.5 mg inhalation Q4-6H PRN (Reason: shortness of breath or wheezing) Qty: 75 RF: 0 methadone 10 mg/mL concentrate 10 mg PO DAILY RF: 0 pregabalin [Lyrica] 75 mg capsule 75 mg PO BID RF: 0 Amitiza 24 mcg capsule 24 mcg PO BID 30 Days Qty: 60 RF: 3 Solu-Cortef Act-O-Vial (PF) 100 mg/2 mL recon soln 100 mg IM ONCE PRN (Reason: unable to tolerate PO) 30 Days Qty: 1 RF: 3 simethicone [Gas Relief (simethicone)] 180 mg capsule 180 mg PO QID PRNRF: 0 cholecalciferol (vitamin D3) 25 mcg (1,000 unit) capsule 25 mcg PO DAILY RF: 0 levothyroxine 112 mcg tablet 112 mcg PO DAILY RF: 0 pravastatin 20 mg tablet 20 mg PO BEDTIME RF: 0 desmopressin 0.2 mg tablet See Rx Instructions PO .COMPLEX RF: 0 hydrocortisone 5 mg tablet See Rx Instructions PO DAILY RF: 0 sennosides-docusate sodium [Senna Plus] 8.6-50 mg tablet 2 tab-cap PO BEDTIME 30 Days Qty: 60 RF: 6 Referrals: Sofia Gonzalez MD [Primary Care Provider] - 2 days Print Language: [place]
[2021-04-10] MEDS: predniSONE 20 MG TABLET 60 MG PO (10:43)
[2021-04-10] MEDS: Ketorolac Tromethamine 30 MG/ML VIAL IM (10:44)
== END 2021-04-10 10:48 | disposition home or self-care (01) ==
PROVIDERS: Emergency Provider Emergency Medicine; PCP Family Medicine
DX: M54.30 Sciatica, unspecified side (principal); M53.9 Dorsopathy, unspecified; E23.2 Diabetes insipidus; Z79.891 Long term (current) use of opiate analgesic
CPT/HCPCS: 96372; 99284; J1885

== ENCOUNTER → 2021-09-01 07:56 | Outpatient (BNVA) | payer MEDICARE, MEDICAID, SELFPAY | PROVIDERS: PCP Family Medicine; Visit Provider Internal Medicine | CPT/HCPCS: Q3014 ==

== ENCOUNTER → 2021-09-20 09:27 | Outpatient (BNVA) | payer MEDICARE, MEDICAID, SELFPAY | PROVIDERS: PCP Family Medicine; Referring Provider Family Medicine; Visit Provider Nurse Practitioner ==

== ENCOUNTER → 2021-10-13 08:57 | Outpatient (BNVA) | payer MEDICARE, MEDICAID, SELFPAY | PROVIDERS: PCP Family Medicine; Referring Provider Family Medicine; Visit Provider Nurse Practitioner | DX: K21.9 Gastro-esophageal reflux disease without esophagitis (principal); K59.04 Chronic idiopathic constipation; K29.71 Gastritis, unspecified, with bleeding; R13.10 Dysphagia, unspecified; R10.13 Epigastric pain; R14.0 Abdominal distension (gaseous); Z83.71 Family history of colonic polyps | CPT/HCPCS: 99212 ==

== ENCOUNTER 2021-10-21 13:24 | Emergency (ER) | payer MEDICARE, MEDICAID, SELFPAY ==
--- NOTE | 2021-10-21 | ECG_ITS ---
Test Reason : chest pain Blood Pressure : / mmHG Vent. Rate : 067 BPM Atrial Rate : 067 BPM P-R Int : 122 ms QRS Dur : 086 ms QT Int : 404 ms P-R-T Axes : 068 049 003 degrees QTc Int : 426 ms Normal sinus rhythm T wave abnormality, consider anterior ischemia Abnormal ECG When compared with ECG of 12-JAN-2020 08:30, No significant change was found Referred By: Generic ED Physician Electronically Signed By:Shahid Ceja
[2021-10-21 13:29] VITALS: BP 128/75; PULSE 76; RESP 18; TEMP 36.9; O2SAT 95; BMI 30.1
[2021-10-21 13:55] LABS: MANUAL DIFF FLAG NO
[2021-10-21 13:56] LABS: Basophils Absolute Auto 0.1 X10*3/uL (0.0-0.2); Basophils Percent Auto 0.9 % (0-2); Eosinophils Absolute Auto 0.4 X10*3/uL (0.0-0.4); Eosinophils Percent Auto 4.2 % (0-4); Hematocrit 45.4 % (37.0-47.0); Hemoglobin 14.8 g/dl (12.0-16.0); Imm Gran Abs Auto 0.02 X10*3/uL (0.00-0.03); Imm Gran Pct Auto 0.2 % (0.0-0.4); Lymphocytes Absolute Auto 4.8 X10*3/uL (1.2-4.9); Lymphocytes Percent Auto 47.6 % (20-40); Mean Corpuscular HGB Conc 32.6 g/dl (31.0-35.0); Mean Corpuscular Volume 91.9 fL (80.0-98.0); Mean Platelet Volume 9.5 fL (9.4-12.3); Monocytes Absolute Auto 0.6 X10*3/uL (0.1-1.2); Monocytes Percent Auto 5.5 % (2-11); Neutrophils Absolute Auto 4.2 x10*3/uL (2.0-8.3); Neutrophils Percent Auto 41.6 % (45-73); Platelet Count 281 X10*3/uL (160-400); Red Blood Count 4.94 X10*6/uL (4.20-5.50); Red Cell Distribution Width 13.5 % (11.0-16.0); White Blood Count 10.1 X10*3/uL (4.8-10.8)
[2021-10-21 14:12] LABS: COVID-19 Test Negative (Negative); IDNOW Serial# 55D5AD1C
[2021-10-21 14:15] LABS: Alanine Aminotransferase 38 U/L (0-31); Albumin Level 3.9 g/dL (3.5-5.0); Alkaline Phosphatase 95 U/L (39-117); Anion Gap 10 (12-20); Aspartate Amino Transferase 36 U/L (5-31); Bilirubin Total 0.3 mg/dL (0.0-1.0); Blood Urea Nitrogen 12 mg/dL (9-16); Carbon Dioxide 34 mmol/L (22-29); Chloride 103 mmol/L (96-108); Creatinine Clr Calc Pharmacy 64.3; Estimated Glomerular Filt Rate > 60; Glucose Random 127 mg/dL (60-115); Potassium 4.9 mmol/L (3.3-5.1); Sodium 142 mmol/L (135-145); Total Protein 6.9 g/dL (6.5-8.0)
[2021-10-21 14:16] LABS: Troponin-I High Sensitivity < 3.5 ng/L (<3.5-17.0)
--- NOTE | 2021-10-21 15:13 | ED_ITS ---
HPI - General Adult General Chief complaint: Extremity Problem Stated complaint: LT shoulder/arm pain Time Seen by Provider: 10/21/21 13:28 Related Data Home Medications Medication Instructions Recorded Confirmed methadone 10 mg/mL oral concentrate 10 mg PO DAILY 09/21/20 09/01/21 pregabalin 75 mg capsule (Lyrica) 75 mg PO BID 09/21/20 09/01/21 pravastatin 20 mg tablet 20 mg PO BEDTIME 01/05/21 09/01/21 Previous Rx's Medication Instructions Recorded ibuprofen 600 mg tablet 600 mg PO Q8H PRN #30 tab 07/13/20 albuterol sulfate 90 mcg/actuation 2 puff INHALATION Q6H PRN #18 g 08/15/20 aerosol inhaler (ProAir HFA) oxymetazoline 0.05 % nasal mist 2 spray INTRANASAL Q12H PRN 3 Days 08/15/20 (Afrin (oxymetazoline)) #15 ml albuterol sulfate 2.5 mg (3 mL) INHALATION Q4-6H PRN 08/22/20 #75 ml doxycycline hyclate 100 mg tablet 100 mg PO BID 7 Days #14 tab 08/22/20 hydrocortisone sod succ (PF) 100 100 mg (2 mL) IM ONCE PRN 30 Days 02/23/21 mg/2 mL solution for injection #1 ea (Solu-Cortef Act-O-Vial (PF)) methocarbamol 750 mg tablet 750 mg PO TID PRN #30 tab 04/10/21 prednisone 20 mg tablet 40 mg PO DAILY 5 Days #10 tab 04/10/21 desmopressin 0.2 mg tablet See Rx Instructions PO .COMPLEX 30 04/11/21 Days #90 tab hydrocortisone 5 mg tablet See Rx Instructions PO DAILY 30 04/11/21 Days #90 tab Synthroid 112 mcg tablet 112 mcg PO DAILY 30 Days #30 tab NS 04/13/21 (levothyroxine) cholecalciferol (vitamin D3) 25 25 mcg PO DAILY 30 Days #30 cap 09/01/21 mcg (1,000 unit) capsule hydrocortisone sod succ (PF) 100 100 mg (2 mL) IM ONCE PRN 30 Days 09/01/21 mg/2 mL solution for injection #1 ea (Solu-Cortef Act-O-Vial (PF)) dexlansoprazole 60 mg 60 mg PO DAILY #30 cap 10/13/21 capsule,biphase delayed release (Dexilant) dicyclomine 20 mg tablet 40 mg PO QID 30 Days #240 tab 10/13/21 famotidine 40 mg tablet (Pepcid) 40 mg PO BEDTIME #30 tab 10/13/21 lubiprostone 24 mcg capsule 24 mcg PO BID 30 Days #60 cap 10/13/21 (Amitiza) sennosides 8.6 mg-docusate sodium 2 tab-cap PO BEDTIME 30 Days #60 10/13/21 50 mg tablet (Senna Plus) tab simethicone 180 mg capsule (Gas 180 mg PO QID PRN #90 cap 10/13/21 Relief (simethicone)) Allergies Allergy/AdvReac Type Severity Reaction Status Date / Time morphine [MORPHINE] Allergy Intermediate RAPID Verified 10/13/21 09:17 HEART RATE,ANXIOUS, swelling and rash PMFSH Past Medical History Medical History Asthma Diabetes insipidus Fibromyalgia Head injury High cholesterol Panhypopituitarism Secondary adrenal insufficiency Secondary hypothyroidism Vitamin D deficiency Surgical History History of esophagogastroduodenoscopy (EGD) History of eye removal Hx of colonoscopy Family History Family History Mother Breast cancer Sister Breast cancer Brother Esophagus cancer Social History Social History Household Members: Spouse Alcohol intake: never Cigarettes Per Day: 7 Advance Directives: No Advance Directives Information Provided: Yes Physical Exam Vital Signs: Vital Signs: Last Vital Signs Temp 98.5 F 10/21/21 13:29 Pulse 76 10/21/21 13:29 Resp 18 10/21/21 13:29 BP 128/75 10/21/21 13:29 Pulse Ox 95 10/21/21 13:29 BMI result Body Mass Index 30.1 Course Course Course Narrative: 1515: Medical Decision Making Lab Data Result diagrams: 10/21/21 13:51 10/21/21 13:51 Labs: Lab Results 10/21/21 10/21/21 10/21/21 Range/Units 13:51 13:51 13:51 WBC 10.1 (4.8-10.8) X10*3/uL RBC 4.94 (4.20-5.50) X10*6/uL Hgb 14.8 (12.0-16.0) g/dl Hct 45.4 (37.0-47.0) % MCV 91.9 (80.0-98.0) fL MCH 30.0 (27.0-33.0) pg MCHC 32.6 (31.0-35.0) g/dl RDW 13.5 (11.0-16.0) % Plt Count 281 (160-400) X10*3/uL MPV 9.5 (9.4-12.3) fL Immature Gran % (Auto) 0.2 (0.0-0.4) % Neut % (Auto) 41.6 L (45-73) % Lymph % (Auto) 47.6 H (20-40) % Williamson % (Auto) 5.5 (2-11) % Eos % (Auto) 4.2 H (0-4) % Baso % (Auto) 0.9 (0-2) % Lymph # (Auto) 4.8 (1.2-4.9) X10*3/uL Williamson # (Auto) 0.6 (0.1-1.2) X10*3/uL Eos # (Auto) 0.4 (0.0-0.4) X10*3/uL Baso # (Auto) 0.1 (0.0-0.2) X10*3/uL Abs Immat Gran (auto) 0.02 (0.00-0.03) X10*3/uL Absolute Neuts (auto) 4.2 (2.0-8.3) x10*3/uL Absolute Nucleated RBC 0.000 (0.0-0.012) X10*3/uL Nucleated RBC % (auto) 0.0 (0.0-0.2) /100WBC Sodium 142 (135-145) mmol/L Potassium 4.9 (3.3-5.1) mmol/L Chloride 103 (96-108) mmol/L Carbon Dioxide 34 H (22-29) mmol/L Anion Gap 10 L (12-20) BUN 12 (9-16) mg/dL Creatinine 0.96 (0.5-1.4) mg/dL Estim Creat Clear Calc 64.3 Estimated GFR > 60 Random Glucose 127 H (60-115) mg/dL Calcium 10.0 (8.4-10.2) mg/dL Total Bilirubin 0.3 (0.0-1.0) mg/dL AST 36 H (5-31) U/L ALT 38 H (0-31) U/L Alkaline Phosphatase 95 (39-117) U/L Troponin I High Sens < 3.5 (<3.5-17.0) ng/L Total Protein 6.9 (6.5-8.0) g/dL Albumin 3.9 (3.5-5.0) g/dL COVID-19 (JOAQUIN) (Negative) COVID-19 Clin Com 10/21/21 Range/Units 13:51 WBC (4.8-10.8) X10*3/uL RBC (4.20-5.50) X10*6/uL Hgb (12.0-16.0) g/dl Hct (37.0-47.0) % MCV (80.0-98.0) fL MCH (27.0-33.0) pg MCHC (31.0-35.0) g/dl RDW (11.0-16.0) % Plt Count (160-400) X10*3/uL MPV (9.4-12.3) fL Immature Gran % (Auto) (0.0-0.4) % Neut % (Auto) (45-73) % Lymph % (Auto) (20-40) % Williamson % (Auto) (2-11) % Eos % (Auto) (0-4) % Baso % (Auto) (0-2) % Lymph # (Auto) (1.2-4.9) X10*3/uL [place] # (Auto) (0.1-1.2) X10*3/uL Eos # (Auto) (0.0-0.4) X10*3/uL Baso # (Auto) (0.0-0.2) X10*3/uL Abs Immat Gran (auto) (0.00-0.03) X10*3/uL Absolute Neuts (auto) (2.0-8.3) x10*3/uL Absolute Nucleated RBC (0.0-0.012) X10*3/uL Nucleated RBC % (auto) (0.0-0.2) /100WBC Sodium (135-145) mmol/L Potassium (3.3-5.1) mmol/L Chloride (96-108) mmol/L Carbon Dioxide (22-29) mmol/L Anion Gap (12-20) BUN (9-16) mg/dL Creatinine (0.5-1.4) mg/dL Estim Creat Clear Calc Estimated GFR Random Glucose (60-115) mg/dL Calcium (8.4-10.2) mg/dL Total Bilirubin (0.0-1.0) mg/dL AST (5-31) U/L ALT (0-31) U/L Alkaline Phosphatase (39-117) U/L Troponin I High Sens (<3.5-17.0) ng/L Total Protein (6.5-8.0) g/dL Albumin (3.5-5.0) g/dL COVID-19 (JOAQUIN) Negative (Negative) COVID-19 Clin Com See Note Discharge Plan Discharge Prescriptions: No Action desmopressin 0.2 mg tablet See Rx Instructions PO .COMPLEX 30 Days Qty: 90 RF: 11 hydrocortisone 5 mg tablet See Rx Instructions PO DAILY 30 Days Qty: 90 RF: 11 levothyroxine [Synthroid] 112 mcg tablet 112 mcg PO DAILY 30 Days Qty: 30 RF: 11 Afrin (oxymetazoline) 0.05 % mist 2 spray intranasal Q12H PRN (Reason: nasal congestion) 3 Days Qty: 15 RF: 0 albuterol sulfate [ProAir HFA] 90 mcg/actuation HFA aerosol inhaler 2 puff inhalation Q6H PRN (Reason: shortness of breath or wheezing) Qty: 18 RF: 0 prednisone 20 mg tablet 40 mg PO DAILY 5 Days Qty: 10 RF: 0 methocarbamol 750 mg tablet 750 mg PO TID PRN (Reason: muscle spasm) Qty: 30 RF: 0 ibuprofen 600 mg tablet 600 mg PO Q8H PRN (Reason: pain) Qty: 30 RF: 0 doxycycline hyclate 100 mg tablet 100 mg PO BID 7 Days Qty: 14 RF: 0 albuterol sulfate 2.5 mg /3 mL (0.083 %) solution for nebulization 2.5 mg inhalation Q4-6H PRN (Reason: shortness of breath or wheezing) Qty: 75 RF: 0 methadone 10 mg/mL concentrate 10 mg PO DAILY RF: 0 pregabalin [Lyrica] 75 mg capsule 75 mg PO BID RF: 0 Solu-Cortef Act-O-Vial (PF) 100 mg/2 mL recon soln 100 mg IM ONCE PRN (Reason: unable to tolerate PO) 30 Days Qty: 1 RF: 3 pravastatin 20 mg tablet 20 mg PO BEDTIME RF: 0 cholecalciferol (vitamin D3) 25 mcg (1,000 unit) capsule 25 mcg PO DAILY 30 Days Qty: 30 RF: 11 Solu-Cortef Act-O-Vial (PF) 100 mg/2 mL recon soln 100 mg IM ONCE PRN (Reason: Unable to take PO) 30 Days Qty: 1 RF: 3 famotidine [Pepcid] 40 mg tablet 40 mg PO BEDTIME Qty: 30 RF: 6 Dexilant 60 mg capsule,biphase delayed releas 60 mg PO DAILY Qty: 30 RF: 6 sennosides-docusate sodium [Senna Plus] 8.6-50 mg tablet 2 tab-cap PO BEDTIME 30 Days Qty: 60 RF: 6 simethicone [Gas Relief (simethicone)] 180 mg capsule 180 mg PO QID PRN (Reason: abdominal distention) Qty: 90 RF: 6 dicyclomine 20 mg tablet 40 mg PO QID 30 Days Qty: 240 RF: 6 Amitiza 24 mcg capsule 24 mcg PO BID 30 Days Qty: 60 RF: 6
--- NOTE | 2021-10-21 15:40 | PC.NURSE ---
patient was brought into room 18 by staff, this nurse went into the room to see the patient and the patient had left. The provider who was going to see the patient and this nurse looked for the patient and she was not found. patient left without being seen from the room.
== END 2021-10-21 15:42 | disposition left against medical advice (07) ==
PROVIDERS: Emergency Provider Emergency Medicine; PCP Family Medicine
DX: M54.2 Cervicalgia (principal); M25.512 Pain in left shoulder; Z20.822 Contact with and (suspected) exposure to COVID-19
CPT/HCPCS: 80053; 84484; 85025; 87635; 93005; 99283

== ENCOUNTER 2021-11-17 07:25 | Outpatient (REF) | payer MEDICARE, MEDICAID, SELFPAY | END 2021-11-17 07:26 | disposition home or self-care (01) | LOC: HO.HOSX 07:25 | PROVIDERS: Visit Provider Physician Assistant | DX: Z13.89 Encounter for screening for other disorder (principal) ==

== ENCOUNTER 2021-12-06 13:19 | Outpatient (REF) | payer MEDICARE, MEDICAID, SELFPAY ==
--- NOTE | ~2021-12-06 | US_ITS ---
EXAMINATION: MM DIAGNOSTIC DIGITAL BREAST TOMOSYNTHESIS, BILATERAL US DIAGNOSTIC ULTRASOUND BREAST, RIGHT CLINICAL INFORMATION: Nonfocal right breast pain for several months. No discharge. Palpable area of concern lateral right breast/chest. Family history breast cancer, mother. The lifetime risk of breast cancer based on the Tyrer-Cuzick Model is 13%. COMPARISON: Mammography: 10/09/2019, 11/27/2018, 02/21/2018, 07/12/2017, 01/09/2017, 01/01/2017, 09/20/2015. CT abdomen 11/17/2020. TECHNIQUE: Digital breast tomosynthesis is performed in both the craniocaudal and mediolateral oblique views along with computer-aided detection (CAD). Synthesized 2D images are generated from the tomosynthesis. Additional views are obtained: Magnification left CC, exaggerated right CC, and right MLO views. Ultrasound right breast is targeted to all 4 quadrants and retroareolar region. Additional imaging also performed over area of palpable concern lateral right breast, at junction with chest wall. Comparison imaging performed left lateral breast at junction with chest wall. Grayscale imaging and color Doppler are performed without and with harmonics. FINDINGS: There are scattered areas of fibroglandular density (ACR BI-RADS breast composition Category b). Parenchymal pattern is similar to prior studies. There is no developing density or architectural abnormality. There is no significant mass or interval duct ectasia or abnormal calcifications. The axilla and skin contours are unremarkable. No skin thickening or coarsening of the Peyman's ligaments. There are no significant changes from prior studies. Ultrasound right breast demonstrates no cystic or solid mass or architectural abnormality or focal duct ectasia. No skin thickening or edema tracking in soft tissue planes. Additional imaging over area of palpable concern shows no mass or architectural abnormality. There are scattered incidental small oval hyperechoic subcutaneous fat lobules on each side. Results are discussed with the patient at time of visit, using an encyclopedia research worker. US/US breast RT limited IMPRESSION: -No mammographic evidence of malignancy or inflammatory changes. -Unremarkable right breast ultrasound. ASSESSMENT: BI-RADS 2: Benign RECOMMENDATION: 1. Patient should be managed based on the clinical impression. 2. Otherwise, routine annual screening mammography. This patient's information was entered into a reminder system with a target due date for their next mammogram.
== END 2021-12-06 13:20 | disposition home or self-care (01) ==
LOC: HO.MAMMO 13:19
PROVIDERS: Visit Provider Family Medicine
DX: N64.4 Mastodynia (principal)
CPT/HCPCS: 76642; 77062; 77066

== ENCOUNTER 2021-12-30 16:16 | Emergency (ER) | payer MEDICARE, MEDICAID, SELFPAY ==
[2021-12-30 16:22] VITALS: BP 158/65; PULSE 77; RESP 19; TEMP 36.1; O2SAT 98; BMI 28.3
== END 2021-12-30 21:26 | disposition left against medical advice (07) ==
PROVIDERS: Emergency Provider Emergency Medicine
DX: R51.9 Headache, unspecified (principal); R42 Dizziness and giddiness
CPT/HCPCS: 99281; 99282

== ENCOUNTER 2021-12-31 05:09 | Emergency (ER) | payer MEDICARE, MEDICAID, SELFPAY ==
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
[2021-12-31 05:26] VITALS: BP 131/52; PULSE 73; RESP 16; TEMP 36.8; O2SAT 97; BMI 28.3
--- NOTE | 2021-12-31 08:24 | ECG_ITS ---
Test Reason : DIZZINESS Blood Pressure : / mmHG Vent. Rate : 065 BPM Atrial Rate : 065 BPM P-R Int : 138 ms QRS Dur : 090 ms QT Int : 436 ms P-R-T Axes : 069 055 009 degrees QTc Int : 453 ms Normal sinus rhythm T wave abnormality, consider anterior ischemia Abnormal ECG When compared with ECG of 21-OCT-2021 14:10, No significant change was found Referred By: May Palomo Electronically Signed By:FELICITAS WALKER
--- NOTE | 2021-12-31 08:25 | ED_ITS ---
HPI - Dizziness General Chief Complaint: Dizziness Stated Complaint: DIZZY HEADACHE Time Seen by Provider: 12/31/21 08:14 Source: patient, family and old records reviewed Mode of arrival: ambulatory Limitations: no limitations History of Present Illness MD elicited complaint: dizziness and other (headache) Pertinent past history: other (panhypopituitarism) Onset (ago): day(s) (10) Timing: sudden onset and intermittent Severity: moderate Description: lightheadedness and difficulty walking Context: change in body position History of similar symptoms: No Exacerbating factors: movement/ambulation and change in body position Relieving factors: remaining still, rest and lying down Associated symptoms: other (headache) Related Data Home Medications Medication Instructions Recorded Confirmed methadone 10 mg/mL oral concentrate 10 mg PO DAILY 09/21/20 09/01/21 pregabalin 75 mg capsule (Lyrica) 75 mg PO BID 09/21/20 09/01/21 pravastatin 20 mg tablet 20 mg PO BEDTIME 01/05/21 09/01/21 Previous Rx's Medication Instructions Recorded ibuprofen 600 mg tablet 600 mg PO Q8H PRN #30 tab 07/13/20 albuterol sulfate 90 mcg/actuation 2 puff INHALATION Q6H PRN #18 g 08/15/20 aerosol inhaler (ProAir HFA) oxymetazoline 0.05 % nasal mist 2 spray INTRANASAL Q12H PRN 3 Days 08/15/20 (Afrin (oxymetazoline)) #15 ml albuterol sulfate 2.5 mg (3 mL) INHALATION Q4-6H PRN 08/22/20 #75 ml doxycycline hyclate 100 mg tablet 100 mg PO BID 7 Days #14 tab 08/22/20 hydrocortisone sod succ (PF) 100 100 mg (2 mL) IM ONCE PRN 30 Days 02/23/21 mg/2 mL solution for injection #1 ea (Solu-Cortef Act-O-Vial (PF)) methocarbamol 750 mg tablet 750 mg PO TID PRN #30 tab 04/10/21 prednisone 20 mg tablet 40 mg PO DAILY 5 Days #10 tab 04/10/21 desmopressin 0.2 mg tablet See Rx Instructions PO .COMPLEX 30 04/11/21 Days #90 tab hydrocortisone 5 mg tablet See Rx Instructions PO DAILY 30 04/11/21 Days #90 tab Synthroid 112 mcg tablet 112 mcg PO DAILY 30 Days #30 tab NS 04/13/21 (levothyroxine) cholecalciferol (vitamin D3) 25 25 mcg PO DAILY 30 Days #30 cap 09/01/21 mcg (1,000 unit) capsule hydrocortisone sod succ (PF) 100 100 mg (2 mL) IM ONCE PRN 30 Days 09/01/21 mg/2 mL solution for injection #1 ea (Solu-Cortef Act-O-Vial (PF)) dexlansoprazole 60 mg 60 mg PO DAILY #30 cap 10/13/21 capsule,biphase delayed release (Dexilant) dicyclomine 20 mg tablet 40 mg PO QID 30 Days #240 tab 10/13/21 famotidine 40 mg tablet (Pepcid) 40 mg PO BEDTIME #30 tab 10/13/21 lubiprostone 24 mcg capsule 24 mcg PO BID 30 Days #60 cap 10/13/21 (Amitiza) sennosides 8.6 mg-docusate sodium 2 tab-cap PO BEDTIME 30 Days #60 10/13/21 50 mg tablet (Senna Plus) tab simethicone 180 mg capsule (Gas 180 mg PO QID PRN #90 cap 10/13/21 Relief (simethicone)) Allergies Allergy/AdvReac Type Severity Reaction Status Date / Time morphine [MORPHINE] Allergy Intermediate RAPID Verified 10/13/21 09:17 HEART RATE,ANXIOUS, swelling and rash Review of Systems Review of Systems: Constitutional : No Fever, No Chills, No Fatigue ENT/Mouth : No sore throat, No Rhinorrhea Eyes: No Eye Pain, No Swelling, No Redness Cardiovascular : No Chest Pain, No SOB, No Dyspnea on Exertion Respiratory : No Cough, No Sputum Gastrointestinal : No Nausea, No Vomiting, No Diarrhea, No abdominal Pain, no black or bloody stools Genitourinary : No Dysuria, No Urinary Frequency, No Hematuria, Musculoskeletal : No joint pain, No Myalgias, No Joint Swelling Skin : No Skin Lesions, No rash Neuro : No Weakness, No Numbness, pos Dizziness, positive Headache Psych : No Anxiety/Panic, No Depression Heme/Lymph: No Bruising, No Bleeding,No Lymphadenopathy Endocrine : No Polyuria, No Polydipsia All other systems reviewed and are negative PMFSH Past Medical History Medical History Asthma Diabetes insipidus Fibromyalgia Head injury High cholesterol Panhypopituitarism Secondary adrenal insufficiency Secondary hypothyroidism Vitamin D deficiency Surgical History History of esophagogastroduodenoscopy (EGD) History of eye removal Hx of colonoscopy Family History Family History Mother Breast cancer Sister Breast cancer Brother Esophagus cancer Social History Social History Household Members: Spouse Alcohol intake: never Cigarettes Per Day: 7 Advance Directives: No Advance Directives Information Provided: No Patient : No Physical Exam Vital Signs: Vital Signs: Last Vital Signs Temp 98.2 F 12/31/21 10:00 Pulse 88 12/31/21 10:00 Resp 20 12/31/21 10:00 BP 117/71 12/31/21 10:00 Pulse Ox 95 12/31/21 10:00 BMI result Body Mass Index 28.3 Appearance: Alert. Oriented X3. No acute distress. 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 Normal TMs bilaterally Neck: Normal inspection. Neck supple. CVS: Normal heart rate and rhythm. Pulses normal. Respiratory: No respiratory distress. Breath sounds normal. Abdomen: Soft and non-tender. Skin: Skin warm and dry. Normal skin color. Normal skin turgor. Extremities: No lower extremity edema. No calf ttp Neuro: Oriented X 3. No motor deficit. No sensory deficit. no drift Course Course Course Narrative: negative ortho VS, refusing all medications including magnesium and steroids until head CT resulted, wants Toradol only no signs of need for IV steroids - no signs of adrenal crisis. BP stable, Cr stable. patient feels much better stable for DC MDM - Dizziness MDM Narrative Medical decision making narrative: 56 yo female with hx of gastritis, panhypopituitarism - desmopressin/hydrocorti sone, fibromyalgia, GERD, IBS notes for 10 days she has positional dizziness and headache - at this time given her complaints her BP is normal will need orthostatic VS, she is taking her pituitary medications, CT head for mass/ICH ordered. IVF ordered. PO fioricet for headaches ordered. Denies CP/SOB and GIB symptoms. Dispo per results and findings. Lab Data Result diagrams: 12/31/21 09:08 12/31/21 09:08 Labs: Lab Results 12/31/21 12/31/21 12/31/21 Range/Units 09:08 09:08 09:08 WBC 9.9 (4.8-10.8) X10*3/uL RBC 4.69 (4.20-5.50) X10*6/uL Hgb 14.1 (12.0-16.0) g/dl Hct 43.0 (37.0-47.0) % MCV 91.7 (80.0-98.0) fL MCH 30.1 (27.0-33.0) pg MCHC 32.8 (31.0-35.0) g/dl RDW 13.9 (11.0-16.0) % Plt Count 286 (160-400) X10*3/uL MPV 9.5 (9.4-12.3) fL Immature Gran % (Auto) 0.2 (0.0-0.4) % Neut % (Auto) 33.3 L (45-73) % Lymph % (Auto) 52.6 H (20-40) % [place] % (Auto) 7.9 (2-11) % Eos % (Auto) 4.9 H (0-4) % Baso % (Auto) 1.1 (0-2) % Lymph # (Auto) 5.2 H (1.2-4.9) X10*3/uL [place]ah # (Auto) 0.8 (0.1-1.2) X10*3/uL Eos # (Auto) 0.5 H (0.0-0.4) X10*3/uL Baso # (Auto) 0.1 (0.0-0.2) X10*3/uL Abs Immat Gran (auto) 0.02 (0.00-0.03) X10*3/uL Absolute Neuts (auto) 3.3 (2.0-8.3) x10*3/uL Absolute Nucleated RBC 0.000 (0.0-0.012) X10*3/uL Nucleated RBC % (auto) 0.0 (0.0-0.2) /100WBC Smear Tech's Comments VERIFIED PT 13.3 H (9.9-13.0) SEC INR 1.2 H (0.9-1.1) Sodium 142 (135-145) mmol/L Potassium 5.0 (3.3-5.1) mmol/L Chloride 104 (96-108) mmol/L Carbon Dioxide 33 H (22-29) mmol/L Anion Gap 10 L (12-20) BUN 12 (9-16) mg/dL Creatinine 0.86 (0.5-1.4) mg/dL Estim Creat Clear Calc 72.3 Estimated GFR > 60 Random Glucose 99 (60-115) mg/dL Calcium 9.6 (8.4-10.2) mg/dL Magnesium 2.3 (1.6-2.6) mg/dL Total Bilirubin 0.4 (0.0-1.0) mg/dL Direct Bilirubin 0.2 (0.0-0.5) mg/dL AST 35 H (5-31) U/L ALT 40 H (0-31) U/L Alkaline Phosphatase 86 (39-117) U/L Troponin I High Sens (<3.5-17.0) ng/L Total Protein 6.4 L (6.5-8.0) g/dL Albumin 3.8 (3.5-5.0) g/dL Lipase 45 (8-78) U/L TSH 0.15 L (0.32-4.0) uIU/mL Free T4 1.00 (0.71-1.85) ng/dL COVID-19 (JOAQUIN) (Negative) COVID-19 Clin Com 12/31/21 12/31/21 Range/Units 09:08 09:08 WBC (4.8-10.8) X10*3/uL RBC (4.20-5.50) X10*6/uL Hgb (12.0-16.0) g/dl Hct (37.0-47.0) % MCV (80.0-98.0) fL MCH (27.0-33.0) pg MCHC (31.0-35.0) g/dl RDW (11.0-16.0) % Plt Count (160-400) X10*3/uL MPV (9.4-12.3) fL Immature Gran % (Auto) (0.0-0.4) % Neut % (Auto) (45-73) % Lymph % (Auto) (20-40) % [place] % (Auto) (2-11) % Eos % (Auto) (0-4) % Baso % (Auto) (0-2) % Lymph # (Auto) (1.2-4.9) X10*3/uL [place] # (Auto) (0.1-1.2) X10*3/uL Eos # (Auto) (0.0-0.4) X10*3/uL Baso # (Auto) (0.0-0.2) X10*3/uL Abs Immat Gran (auto) (0.00-0.03) X10*3/uL Absolute Neuts (auto) (2.0-8.3) x10*3/uL Absolute Nucleated RBC (0.0-0.012) X10*3/uL Nucleated RBC % (auto) (0.0-0.2) /100WBC Smear Tech's Comments PT (9.9-13.0) SEC INR (0.9-1.1) Sodium (135-145) mmol/L Potassium (3.3-5.1) mmol/L Chloride (96-108) mmol/L Carbon Dioxide (22-29) mmol/L Anion Gap (12-20) BUN (9-16) mg/dL Creatinine (0.5-1.4) mg/dL Estim Creat Clear Calc Estimated GFR Random Glucose (60-115) mg/dL Calcium (8.4-10.2) mg/dL Magnesium (1.6-2.6) mg/dL Total Bilirubin (0.0-1.0) mg/dL Direct Bilirubin (0.0-0.5) mg/dL AST (5-31) U/L ALT (0-31) U/L Alkaline Phosphatase (39-117) U/L Troponin I High Sens < 3.5 (<3.5-17.0) ng/L Total Protein (6.5-8.0) g/dL Albumin (3.5-5.0) g/dL Lipase (8-78) U/L TSH (0.32-4.0) uIU/mL Free T4 (0.71-1.85) ng/dL COVID-19 (JOAQUIN) Negative (Negative) COVID-19 Clin Com See Note ECG Data Attestation: I personally reviewed and interpreted this ECG as follows: ECG interpretation date: 12/31/21 ECG interpretation time: 08:42 Interpretation: Rate: 65 Rhythm: NSR [place]: normal Normal P waves. Normal JANETH. Normal QRS complex. ST T wave : nonspecific inf leads, t wave inversions V1-V4, no LUCIEN qTC: normal prior studies: no acute ischemia noted similar Oct 2021 The study has been interpreted contemporaneously by me. Discharge Plan Discharge Clinical Impression: Dizziness Headache Qualifiers: Headache type: unspecified Headache chronicity pattern: acute headache Intractability: not intractable Qualified Code(s): R51.9 - Headache, unspecified Patient Disposition: Home, Self-Care Instructions: Acute Headache (ED), Lightheadedness (ED) Additional Instructions: return to ED for any worsening symptoms or concerns CT head normal, labs normal, VS stable follow up with your doctor this week. Prescriptions: No Action desmopressin 0.2 mg tablet See Rx Instructions PO .COMPLEX 30 Days Qty: 90 11RF Rx Instructions: 0.2 mg q am and 0.4 mg q pm PO; hydrocortisone 5 mg tablet See Rx Instructions PO DAILY 30 Days Qty: 90 11RF Rx Instructions: 10 mg PO q AM and 5 mg PO q PM PO daily; levothyroxine [Synthroid] 112 mcg tablet 112 mcg PO DAILY 30 Days Qty: 30 11RF Afrin (oxymetazoline) 0.05 % mist 2 spray intranasal Q12H PRN (Reason: nasal congestion) 3 Days Qty: 15 0RF albuterol sulfate [ProAir HFA] 90 mcg/actuation HFA aerosol inhaler 2 puff inhalation Q6H PRN (Reason: shortness of breath or wheezing) Qty: 18 0RF prednisone 20 mg tablet 40 mg PO DAILY 5 Days Qty: 10 0RF Rx Instructions: started 04/11/2021 methocarbamol 750 mg tablet 750 mg PO TID PRN (Reason: muscle spasm) Qty: 30 0RF ibuprofen 600 mg tablet 600 mg PO Q8H PRN (Reason: pain) Qty: 30 0RF doxycycline hyclate 100 mg tablet 100 mg PO BID 7 Days Qty: 14 0RF albuterol sulfate 2.5 mg /3 mL (0.083 %) solution for nebulization 2.5 mg inhalation Q4-6H PRN (Reason: shortness of breath or wheezing) Qty: 75 0RF methadone 10 mg/mL concentrate 10 mg PO DAILY 0RF Rx Instructions: 63 mg daily pregabalin [Lyrica] 75 mg capsule 75 mg PO BID 0RF Solu-Cortef Act-O-Vial (PF) 100 mg/2 mL recon soln 100 mg IM ONCE PRN (Reason: unable to tolerate PO) 30 Days Qty: 1 3RF pravastatin 20 mg tablet 20 mg PO BEDTIME 0RF cholecalciferol (vitamin D3) 25 mcg (1,000 unit) capsule 25 mcg PO DAILY 30 Days Qty: 30 11RF Solu-Cortef Act-O-Vial (PF) 100 mg/2 mL recon soln 100 mg IM ONCE PRN (Reason: Unable to take PO) 30 Days Qty: 1 3RF famotidine [Pepcid] 40 mg tablet 40 mg PO BEDTIME Qty: 30 6RF Dexilant 60 mg capsule,biphase delayed releas 60 mg PO DAILY Qty: 30 6RF sennosides-docusate sodium [Senna Plus] 8.6-50 mg tablet 2 tab-cap PO BEDTIME 30 Days Qty: 60 6RF simethicone [Gas Relief (simethicone)] 180 mg capsule 180 mg PO QID PRN (Reason: abdominal distention) Qty: 90 6RF dicyclomine 20 mg tablet 40 mg PO QID 30 Days Qty: 240 6RF Amitiza 24 mcg capsule 24 mcg PO BID 30 Days Qty: 60 6RF Rx Instructions: d/c the 8mcg dose as it is not effective and start the new dose. Print Language: Monegasque
[2021-12-31 09:19] LABS: Basophils Absolute Auto 0.1 X10*3/uL (0.0-0.2); Basophils Percent Auto 1.1 % (0-2); Eosinophils Absolute Auto 0.5 X10*3/uL (0.0-0.4); Eosinophils Percent Auto 4.9 % (0-4); Hemoglobin 14.1 g/dl (12.0-16.0); Imm Gran Abs Auto 0.02 X10*3/uL (0.00-0.03); Imm Gran Pct Auto 0.2 % (0.0-0.4); Lymphocytes Absolute Auto 5.2 X10*3/uL (1.2-4.9); Lymphocytes Percent Auto 52.6 % (20-40); MANUAL DIFF FLAG SCAN; Mean Corpuscular HGB Conc 32.8 g/dl (31.0-35.0); Mean Corpuscular Hemoglobin 30.1 pg (27.0-33.0); Mean Corpuscular Volume 91.7 fL (80.0-98.0); Mean Platelet Volume 9.5 fL (9.4-12.3); Monocytes Absolute Auto 0.8 X10*3/uL (0.1-1.2); Monocytes Percent Auto 7.9 % (2-11); Neutrophils Absolute Auto 3.3 x10*3/uL (2.0-8.3); Neutrophils Percent Auto 33.3 % (45-73); Platelet Count 286 X10*3/uL (160-400); Red Blood Count 4.69 X10*6/uL (4.20-5.50); Red Cell Distribution Width 13.9 % (11.0-16.0); SCAN SMEAR FLAG 1; White Blood Count 9.9 X10*3/uL (4.8-10.8)
[2021-12-31 09:21] LABS: INTERNATIONAL NORM RATIO 1.2 (0.9-1.1); Prothrombin Time 13.3 SEC (9.9-13.0)
[2021-12-31 09:28] LABS: COVID-19 Test Negative (Negative)
[2021-12-31 09:38] LABS: Alanine Aminotransferase 40 U/L (0-31); Albumin Level 3.8 g/dL (3.5-5.0); Alkaline Phosphatase 86 U/L (39-117); Anion Gap 10 (12-20); Aspartate Amino Transferase 35 U/L (5-31); Bilirubin Direct 0.2 mg/dL (0.0-0.5); Bilirubin Total 0.4 mg/dL (0.0-1.0); Blood Urea Nitrogen 12 mg/dL (9-16); Calcium 9.6 mg/dL (8.4-10.2); Carbon Dioxide 33 mmol/L (22-29); Chloride 104 mmol/L (96-108); Creatinine Clr Calc Pharmacy 72.3; Estimated Glomerular Filt Rate > 60; Glucose Random 99 mg/dL (60-115); Lipase 45 U/L (8-78); Magnesium 2.3 mg/dL (1.6-2.6); Sodium 142 mmol/L (135-145); Total Protein 6.4 g/dL (6.5-8.0)
[2021-12-31 09:42] LABS: Troponin-I High Sensitivity < 3.5 ng/L (<3.5-17.0)
[2021-12-31 09:43] LABS: SLIDE REVIEW VERIFIED
[2021-12-31 09:54] VITALS: BP 115/67; PULSE 82
[2021-12-31 09:55] VITALS: BP 107/66; PULSE 89
[2021-12-31 09:56] VITALS: BP 117/71; PULSE 88
[2021-12-31 09:57] LABS: TSH reflex Free T4 0.15 uIU/mL (0.32-4.0)
[2021-12-31 10:00] VITALS: BP 117/71; PULSE 88; RESP 20; TEMP 36.8; O2SAT 95
--- NOTE | 2021-12-31 10:56 | PC.NURSE ---
pt is refusing steroids and mag sulfate, she claims that she has never taken these meds , per Dr Palomo she has in the past at this hospital taken them. pt wants to wait until CT report is back to take Toradol . Dr Palomo is aware
[2021-12-31] MEDS: Ketorolac Tromethamine 30 MG/ML VIAL IVPUSH (11:09)
[2021-12-31] MEDS: 0.9 % Sodium Chloride 1,000 ML 999 ML IVCONT (11:22)
== END 2021-12-31 12:03 | disposition home or self-care (01) ==
PROVIDERS: Emergency Provider Emergency Medicine; PCP Family Medicine
DX: R42 Dizziness and giddiness (principal); Z20.822 Contact with and (suspected) exposure to COVID-19; R51.9 Headache, unspecified; E78.5 Hyperlipidemia, unspecified; E23.2 Diabetes insipidus
CPT/HCPCS: 70450; 80048; 80076; 83690; 83735; 84439; 84443; 84484; 85025; 85610; 87635; 93005; 96361; 96374; 99284; J1885

== ENCOUNTER 2022-02-03 07:20 | Outpatient (REF) | payer MEDICARE, MEDICAID, SELFPAY ==
--- NOTE | ~2022-02-03 | XR_ITS ---
EXAMINATION: XR SHOULDER, RIGHT CLINICAL INFORMATION: Pain shoulder COMPARISON: None TECHNIQUE: AP external rotation, Grashey, scapular Y, and axillary views of the right shoulder. FINDINGS: The bones and soft tissues are normal. No fracture. Glenohumeral and acromioclavicular alignment is anatomic with normal joint space. No abnormal soft tissue calcifications. XR/XR shoulder RT min 2V IMPRESSION: Unremarkable right shoulder exam.
== END 2022-02-03 07:21 | disposition home or self-care (01) ==
LOC: HO.HOSX 07:20
PROVIDERS: Visit Provider Physician Assistant
DX: M77.8 Other enthesopathies, not elsewhere classified (principal)
CPT/HCPCS: 73030; 99202

== ENCOUNTER 2022-03-15 12:46 | Day surgery (SDC) | payer MEDICARE, MEDICAID, SELFPAY ==
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
[2022-03-15] VITALS (7 sets, daily range): BP systolic 99–112; BP diastolic 54–69; PULSE 68–80; RESP 15–16; TEMP 36.1–36.3; O2SAT 93–97; BMI 28.3
[2022-03-15] MEDS: Lactated Ringers 1,000 ML 100 ML IVCONT (13:40)
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
--- NOTE | 2022-03-15 14:50 | P.BOP_ITS ---
Brief Operative Note Date of Service: 03/15/22 Pre-op diagnosis: epigastric pain Post-op diagnosis: same Procedure: see op note Surgeon: Jes Lezama MD Anesthesia: MAC Was an Composition Stone Applicator used for this Procedure?: No Estimated blood loss (mL): 0 Condition: stable Disposition: PACU
--- NOTE | 2022-03-15 14:51 | P.OP_ITS ---
Operative Note Operative Note Date of Service: 03/15/22 Narrative: Procedure Description: EGD Indication: epigastric pain Anesthesia: MAC FLEXIBLE TRANSORAL UPPER GASTROINTESTINAL ENDOSCOPY UPPER ENDOSCOPY Consent: Indications for the procedure and potential complications of bleeding, perforation, reaction to medications and missed diagnosis were discussed with the patient and informed consent was obtained. Instrument: Olympus GIF H 190 J mid size upper endoscope Monitoring: Vital signs and clinical assessment, continuous EKG monitoring, Pulse oximetry, Carbon Dioxide monitoring and blood pressure monitoring were done throughout the procedure. Procedure: The patient was placed in the left lateral decubitis position and pre-procedure medications were administered and a bite block was placed. The endoscope was inserted into the mouth and advanced under direct vision to the third part of duodenum. A careful inspection was made as the upper endoscope was withdrawn including a retroflexed examination of the proximal stomach; Findings and interventions are described below. Findings: Larynx:normal Esophagus: GE junction at 38 cm, diaphragm hiatus at 38 cm, mild esophagitis, bx taken from GEj, distal and proximal esophagus in separate jars. there were tertiary contractions of the esophagus with spasm and some tightness noted in the distal esophagus. Balloon dilation done to 19 mm at lower and upper e sophagus, no tears seen. Stomach: Patchy gastric erythema with atrophy. Biopsies were obtained. Grade 2 flap valve on retroflexed examination of the cardia. there was also bile acid refluxate noted Duodenum: mild bulbar duodenitis, normal descending duodenum, bx taken Intervention: Biopsies as noted above, balloon dilation Impression/Findings: esophageal dysmotility bile acid gastric reflux esophagitis gastritis duodenitis PLAN: await bx, if pos for h pylori-treat her sx may be due to methadone use, can try movantik see if helps can also try bile acid binders if no relief with PPI consider GES to r/o gastroparesis if ongoing sx
[2022-03-15] MEDS: Acetaminophen 325 MG TABLET PO (15:55)
[2022-03-15] MEDS: Mag&Al/Sim/Diphenhyd/Lidocaine 10 ML ORAL.SUSP PO (16:38)
== END 2022-03-15 16:40 ==
PROVIDERS: PCP Family Medicine; Visit Provider Internal Medicine Gastroenterology
PROC: 0DJ08ZZ Inspection of Upper Intestinal Tract, Via Natural or Artificial Opening Endoscopic (ICD-10-PCS; CPT 43235; principal; 2022-03-15 14:30)
DX: K29.50 Unspecified chronic gastritis without bleeding (principal); K22.4 Dyskinesia of esophagus; K22.89 Other specified disease of esophagus; K21.9 Gastro-esophageal reflux disease without esophagitis; K20.80 Other esophagitis without bleeding; K29.80 Duodenitis without bleeding; K44.9 Diaphragmatic hernia without obstruction or gangrene; K59.04 Chronic idiopathic constipation; K58.9 Irritable bowel syndrome, unspecified; M79.7 Fibromyalgia; E78.00 Pure hypercholesterolemia, unspecified; J45.909 Unspecified asthma, uncomplicated; E03.8 Other specified hypothyroidism; E23.0 Hypopituitarism; E23.2 Diabetes insipidus; E55.9 Vitamin D deficiency, unspecified; F11.90 Opioid use, unspecified, uncomplicated; Z79.899 Other long term (current) drug therapy; Z88.8 Allergy status to other drugs, medicaments and biological substances; Z87.828 Personal history of other (healed) physical injury and trauma; F17.210 Nicotine dependence, cigarettes, uncomplicated; Z18.10 Retained metal fragments, unspecified
CPT/HCPCS: 43249; 43239; 88305; 88342; C1726; J3010

== ENCOUNTER → 2022-03-30 08:29 | Outpatient (BNVA) | payer MEDICARE, MEDICAID, SELFPAY | PROVIDERS: PCP Family Medicine; Referring Provider Family Medicine; Visit Provider Nurse Practitioner | DX: K29.71 Gastritis, unspecified, with bleeding (principal); R14.0 Abdominal distension (gaseous); K59.04 Chronic idiopathic constipation; Z79.899 Other long term (current) drug therapy; Z98.890 Other specified postprocedural states | CPT/HCPCS: 99212 ==

== ENCOUNTER 2022-06-15 10:12 | Outpatient (REF) | payer MEDICARE, MEDICAID, SELFPAY ==
--- NOTE | ~2022-06-15 | XR_ITS ---
EXAMINATION: XR CHEST CLINICAL INFORMATION: Cough and wheezing COMPARISON: None TECHNIQUE: 2 views of the chest were obtained. FINDINGS: The lungs are well-expanded and clear of acute process. Heart size and pulmonary vascularity is normal. No gross bony abnormality seen. XR/XR chest 2V IMPRESSION: Unremarkable chest examination.
== END 2022-06-15 10:13 | disposition home or self-care (01) ==
LOC: HO.XRAY 10:12
PROVIDERS: PCP Family Medicine; Visit Provider Emergency Medicine
DX: R05.1 Acute cough (principal); R06.2 Wheezing
CPT/HCPCS: 71046

== ENCOUNTER 2022-06-17 07:43 | Outpatient (REF) | payer MEDICARE, MEDICAID, SELFPAY ==
[2022-06-17 09:16] LABS: Anion Gap 17 (12-20); Blood Urea Nitrogen 19 mg/dL (9-16); Carbon Dioxide 26 mmol/L (22-29); Chloride 100 mmol/L (96-108); Estimated Glomerular Filt Rate > 60; Glucose Random 77 mg/dL (60-115); Potassium 4.5 mmol/L (3.3-5.1); Sodium 138 mmol/L (135-145)
[2022-06-17 09:40] LABS: Free T4 (Free Thyroxine) 0.87 ng/dL (0.71-1.85); Thyroid Stimulating Hormone 0.39 uIU/mL (0.32-4.0); Vitamin D 25-OH Total 46.1 ng/mL (>30)
[2022-06-17 12:04] LABS: Osmolality, Serum 291 mosm/kg (281-305)
[2022-06-17 12:05] LABS: Osmolality Urine 747 mosm/kg (373-1093)
[2022-06-19 21:57] LABS: Adrenocorticotropic Hormone 5 pg/mL (6-50)
[2022-06-20 01:07] LABS: Prolactin 1.3 ng/mL
[2022-06-20 06:12] LABS: Triiodothyronine T3 Total 86 ng/dL (76-181)
== END 2022-06-17 07:44 | disposition home or self-care (01) ==
LOC: HO.LAB 07:43
PROVIDERS: PCP Family Medicine; Visit Provider Internal Medicine
DX: E55.9 Vitamin D deficiency, unspecified (principal); E23.0 Hypopituitarism
CPT/HCPCS: 36415; 80048; 82024; 82306; 82533; 83930; 83935; 84146; 84439; 84443; 84480

== ENCOUNTER → 2022-06-19 11:16 | Outpatient (BNVA) | payer MEDICARE, MEDICAID, SELFPAY | PROVIDERS: PCP Family Medicine; Visit Provider Internal Medicine | DX: E23.0 Hypopituitarism (principal); E23.2 Diabetes insipidus; E27.49 Other adrenocortical insufficiency; E03.8 Other specified hypothyroidism; E55.9 Vitamin D deficiency, unspecified | CPT/HCPCS: Q3014 ==

== ENCOUNTER 2022-07-28 08:55 | Outpatient (REF) | payer MEDICARE, MEDICAID, SELFPAY ==
[2022-07-28 10:37] LABS: Basophils Absolute Auto 0.1 X10*3/uL (0.0-0.2); Basophils Percent Auto 1.2 % (0-2); Eosinophils Absolute Auto 0.4 X10*3/uL (0.0-0.4); Eosinophils Percent Auto 3.9 % (0-4); Hematocrit 44.3 % (37.0-47.0); Hemoglobin 14.7 g/dl (12.0-16.0); Imm Gran Abs Auto 0.01 X10*3/uL (0.00-0.03); Imm Gran Pct Auto 0.1 % (0.0-0.4); Lymphocytes Absolute Auto 5.4 X10*3/uL (1.2-4.9); MANUAL DIFF FLAG SCAN; Mean Corpuscular HGB Conc 33.2 g/dl (31.0-35.0); Mean Corpuscular Hemoglobin 30.1 pg (27.0-33.0); Mean Corpuscular Volume 90.6 fL (80.0-98.0); Mean Platelet Volume 9.7 fL (9.4-12.3); Monocytes Absolute Auto 0.8 X10*3/uL (0.1-1.2); Monocytes Percent Auto 7.3 % (2-11); Neutrophils Absolute Auto 3.7 x10*3/uL (2.0-8.3); Neutrophils Percent Auto 35.5 % (45-73); Platelet Count 302 X10*3/uL (160-400); Red Blood Count 4.89 X10*6/uL (4.20-5.50); Red Cell Distribution Width 13.4 % (11.0-16.0); SCAN SMEAR FLAG 1; White Blood Count 10.3 X10*3/uL (4.8-10.8)
[2022-07-28 11:06] LABS: Estimated Average Glucose 123 mg/dL; Hemoglobin A1c % 5.9 %; SLIDE REVIEW VERIFIED
[2022-07-28 11:13] LABS: Alanine Aminotransferase 44 U/L (0-31); Albumin Level 4.2 g/dL (3.5-5.0); Alkaline Phosphatase 97 U/L (39-117); Anion Gap 13 (12-20); Aspartate Amino Transferase 39 U/L (5-31); Bilirubin Total 0.4 mg/dL (0.0-1.0); Blood Urea Nitrogen 16 mg/dL (9-16); C Reactive Protein 1.52 mg/dL (< or = 0.50); Calcium 9.7 mg/dL (8.4-10.2); Carbon Dioxide 32 mmol/L (22-29); Chloride 101 mmol/L (96-108); Estimated Glomerular Filt Rate > 60; Glucose Random 90 mg/dL (60-115); Potassium 4.3 mmol/L (3.3-5.1); Sodium 142 mmol/L (135-145); Total Protein 6.9 g/dL (6.5-8.0)
[2022-07-28 11:25] LABS: Erythrocyte Sedimentation Rate 5 MM/HR (0-20)
[2022-07-28 11:26] LABS: Free T4 (Free Thyroxine) 1.06 ng/dL (0.71-1.85); Thyroid Stimulating Hormone 0.12 uIU/mL (0.32-4.0); Vitamin D 25-OH Total 39.5 ng/mL (>30)
[2022-07-31 21:35] LABS: Lyme Abs Screen <0.90 index
== END 2022-07-28 08:56 | disposition home or self-care (01) ==
LOC: HO.LAB 08:55
PROVIDERS: PCP Family Medicine; Visit Provider Emergency Medicine
DX: R53.83 Other fatigue (principal)
CPT/HCPCS: 36415; 80053; 82306; 83036; 84439; 84443; 85025; 85652; 86140; 86617; 86618

== ENCOUNTER → 2022-10-13 08:58 | Outpatient (BNVA) | payer MEDICARE, MEDICAID, SELFPAY | PROVIDERS: PCP Family Medicine; Visit Provider Nurse Practitioner | DX: R10.9 Unspecified abdominal pain (principal); K59.04 Chronic idiopathic constipation; K21.9 Gastro-esophageal reflux disease without esophagitis; Z79.899 Other long term (current) drug therapy | CPT/HCPCS: 99212 ==

== ENCOUNTER → 2023-01-03 08:51 | Outpatient (BNVA) | payer MEDICARE, MEDICAID, SELFPAY | PROVIDERS: PCP Family Medicine; Referring Provider Family Medicine; Visit Provider Nurse Practitioner | DX: K21.9 Gastro-esophageal reflux disease without esophagitis (principal); K59.04 Chronic idiopathic constipation; R10.9 Unspecified abdominal pain | CPT/HCPCS: 99212 ==

== ENCOUNTER 2023-01-13 08:29 | Outpatient (REF) | payer MEDICARE, MEDICAID, SELFPAY ==
[2023-01-13 09:20] LABS: Blood Urea Nitrogen 16 mg/dL (9-16); Estimated Glomerular Filt Rate 58
== END 2023-01-13 08:30 | disposition home or self-care (01) ==
LOC: HO.LAB 08:29
PROVIDERS: PCP Family Medicine; Visit Provider Nurse Practitioner
DX: R10.9 Unspecified abdominal pain (principal)
CPT/HCPCS: 36415; 82565; 84520

== ENCOUNTER 2023-01-18 08:54 | Outpatient (REF) | payer MEDICARE, MEDICAID, SELFPAY ==
--- NOTE | ~2023-01-18 | CT_ITS ---
EXAMINATION: CT ABDOMEN AND PELVIS WITH CONTRAST CLINICAL INFORMATION: Abdominal pain. COMPARISON: CT abdomen and pelvis with contrast 11/17/2020. TECHNIQUE: Multidetector volumetric images were obtained from the superior aspect of the liver through the pubic symphysis following administration 85 mL of Omnipaque 350 intravenous contrast. Sagittal and coronal reformatted images were obtained on the technologist's workstation. Oral contrast: No This CT examination was performed using dose optimization techniques as appropriate, variously including the following: *Automated exposure control *Adjustment of mA and/or kV according to patient size (this includes techniques or standardized protocols for targeted exams where dose is matched to indication/reason for exam; i.e. extremities or head) *Use of iterative reconstruction technique DLP: 409 mGy-cm FINDINGS: LUNG BASES: There is a 2 mm nodule right lower lobe anterobasal segment image 1/8. BILIARY TREE: The liver is normal in size, shape, and diffuse hypo-attenuation. No focal hepatic lesion or biliary ductal dilatation is present. The gallbladder has been surgically removed. PANCREAS: Unremarkable. SPLEEN: Unremarkable. ADRENAL GLANDS: Unremarkable. KIDNEYS AND URETERS: The kidneys are normal in size, shape, and attenuation. No hydronephrosis, hydroureter, or calculi seen. No perinephric stranding. There is a 1.4 cm hypodense lesion with higher attenuation, probable complex cyst upper pole left kidney. BLADDER: Unremarkable. GASTROINTESTINAL TRACT: There is moderate stool and gas seen throughout the colon without any significant distention. The small-bowel loops are normal caliber. Surgical gabriela are seen in the right lower quadrant likely from previous appendectomy. No free air or free fluid seen. ABDOMINAL WALL: A tiny supraumbilical hernia containing fat is noted on axial image 47/3 and sagittal image 57/5. LYMPH NODES: No abnormal-size pelvic or inguinal lymph nodes seen. VASCULAR: Unremarkable. PELVIC VISCERA: Unremarkable. OSSEOUS STRUCTURES: There is grade 1 anterolisthesis L5 over S1 with degenerative disc changes L5-S1 disc level and mild diffuse pseudo disc bulge noted. CT/CT abdomen pelvis w IV con IMPRESSION: 1. No acute intra-abdominal process seen. 2. Mild constipation. 3. Likely complex cyst upper pole left kidney. Fleischner guidelines were followed.
[2023-01-18] MEDS: iohexoL 350 MG/ML 100 ML INFUS..BTL 85 ML IV (11:51)
[2023-01-18] MEDS: Barium Sulfate Oral (Mocha) 450 ML ORAL.SUSP 900 ML PO (11:51)
== END 2023-01-18 08:55 | disposition home or self-care (01) ==
LOC: HO.CT 08:54
PROVIDERS: PCP Family Medicine; Visit Provider Nurse Practitioner
DX: R10.9 Unspecified abdominal pain (principal)
CPT/HCPCS: 74177; Q9967

== ENCOUNTER 2023-01-23 07:57 | Outpatient (REF) | payer MEDICARE, MEDICAID, SELFPAY | END 2023-01-23 07:58 | disposition home or self-care (01) | LOC: HO.XRAY 07:57 | PROVIDERS: PCP Family Medicine; Referring Provider Family Medicine; Visit Provider Nurse Practitioner | DX: R10.9 Unspecified abdominal pain (principal); R15.0 Incomplete defecation; M54.6 Pain in thoracic spine | CPT/HCPCS: 99212 ==

== ENCOUNTER 2023-03-22 08:49 | Outpatient (REF) | payer MEDICARE, MEDICAID, SELFPAY ==
--- NOTE | ~2023-03-22 | XR_ITS ---
EXAMINATION: XR THORACOLUMBAR SPINE CLINICAL INFORMATION: Mid back pain COMPARISON: None available. TECHNIQUE: 2 views FINDINGS: Mild kyphosis with slight anterior spondylitic change but no fracture or destructive process. There is mild scoliosis on the AP view. Paraspinal soft tissues normal. Surgical clips are observed in the right upper quadrant. XR/XR thoracic spine 2V IMPRESSION: No acute findings.
== END 2023-03-22 08:50 | disposition home or self-care (01) ==
LOC: HO.XRAY 08:49
PROVIDERS: Visit Provider Nurse Practitioner
DX: M54.6 Pain in thoracic spine (principal)
CPT/HCPCS: 72070

== ENCOUNTER 2023-05-24 08:11 | Outpatient (REF) | payer MEDICARE, MEDICAID, SELFPAY ==
[2023-05-24 08:56] LABS: Basophils Absolute Auto 0.1 X10*3/uL (0.0-0.2); Eosinophils Absolute Auto 0.4 X10*3/uL (0.0-0.4); Eosinophils Percent Auto 3.6 % (0-4); Hematocrit 46.4 % (37.0-47.0); Hemoglobin 14.9 g/dl (12.0-16.0); Imm Gran Abs Auto 0.03 X10*3/uL (0.00-0.03); Imm Gran Pct Auto 0.3 % (0.0-0.4); Lymphocytes Absolute Auto 5.6 X10*3/uL (1.2-4.9); Lymphocytes Percent Auto 52.7 % (20-40); MANUAL DIFF FLAG SCAN; Mean Corpuscular HGB Conc 32.1 g/dl (31.0-35.0); Mean Corpuscular Hemoglobin 29.6 pg (27.0-33.0); Mean Corpuscular Volume 92.2 fL (80.0-98.0); Mean Platelet Volume 9.8 fL (9.4-12.3); Monocytes Absolute Auto 0.5 X10*3/uL (0.1-1.2); Monocytes Percent Auto 5.1 % (2-11); Neutrophils Percent Auto 37.3 % (45-73); Platelet Count 298 X10*3/uL (160-400); Red Blood Count 5.03 X10*6/uL (4.20-5.50); Red Cell Distribution Width 13.7 % (11.0-16.0); SCAN SMEAR FLAG 1; White Blood Count 10.6 X10*3/uL (4.8-10.8)
[2023-05-24 09:32] LABS: Alanine Aminotransferase 15 U/L (0-31); Albumin Level 3.9 g/dL (3.5-5.0); Alkaline Phosphatase 78 U/L (39-117); Anion Gap 10 (12-20); Aspartate Amino Transferase 23 U/L (5-31); Bilirubin Direct 0.1 mg/dL (0.0-0.5); Bilirubin Total 0.4 mg/dL (0.0-1.0); Blood Urea Nitrogen 17 mg/dL (9-16); Calcium 9.6 mg/dL (8.4-10.2); Carbon Dioxide 31 mmol/L (22-29); Chloride 103 mmol/L (96-108); Cholesterol 160 mg/dL (<200); Estimated Glomerular Filt Rate 60; Glucose Random 99 mg/dL (60-115); HDL Cholesterol 36 mg/dL (>40); LDL Cholesterol Calculated 98 mg/dL (<100); Potassium 4.4 mmol/L (3.3-5.1); Sodium 140 mmol/L (135-145); Triglycerides 134 mg/dL (<150)
[2023-05-24 09:52] LABS: HIV AB/AG Nonreactive (Nonreactive); HIV Num 1 0.06 S/CO (0.00-0.99)
[2023-05-24 10:04] LABS: SLIDE REVIEW VERIFIED
== END 2023-05-24 08:12 | disposition home or self-care (01) ==
LOC: HO.LAB 08:11
PROVIDERS: PCP Family Medicine; Visit Provider Family Medicine
DX: E78.5 Hyperlipidemia, unspecified (principal); M79.7 Fibromyalgia; E23.0 Hypopituitarism; Z11.3 Encounter for screening for infections with a predominantly sexual mode of transmission
CPT/HCPCS: 36415; 80048; 80061; 80076; 85025; 87389

== ENCOUNTER 2023-06-25 18:16 | Outpatient (REF) | payer MEDICARE, MEDICAID, SELFPAY ==
[2023-06-25 19:01] LABS: Influenza A PCR NEGATIVE (Negative); Influenza B PCR NEGATIVE (Negative); Resp Syncy Virus RNA Qual PCR NEGATIVE (Negative); SARS COV2 PCR INHOUSE NEGATIVE (Negative)
== END 2023-06-25 18:17 | disposition home or self-care (01) ==
LOC: HO.HHCLNP 18:16
PROVIDERS: Visit Provider Internal Medicine
DX: J45.21 Mild intermittent asthma with (acute) exacerbation (principal); Z20.822 Contact with and (suspected) exposure to COVID-19
CPT/HCPCS: 0241U; 87070

== ENCOUNTER 2023-07-04 08:38 | Outpatient (REF) | payer MEDICARE, MEDICAID, SELFPAY ==
[2023-07-04 09:19] LABS: MANUAL DIFF FLAG NO
[2023-07-04 09:37] LABS: Basophils Absolute Auto 0.1 X10*3/uL (0.0-0.2); Basophils Percent Auto 0.4 % (0-2); Eosinophils Absolute Auto 0.2 X10*3/uL (0.0-0.4); Eosinophils Percent Auto 1.3 % (0-4); Hematocrit 45.3 % (37.0-47.0); Hemoglobin 14.9 g/dl (12.0-16.0); Imm Gran Pct Auto 0.6 % (0.0-0.4); Lymphocytes Percent Auto 29.5 % (20-40); Mean Corpuscular HGB Conc 32.9 g/dl (31.0-35.0); Mean Corpuscular Hemoglobin 29.2 pg (27.0-33.0); Mean Corpuscular Volume 88.6 fL (80.0-98.0); Mean Platelet Volume 9.3 fL (9.4-12.3); Monocytes Absolute Auto 0.9 X10*3/uL (0.1-1.2); Monocytes Percent Auto 5.5 % (2-11); Neutrophils Absolute Auto 10.5 x10*3/uL (2.0-8.3); Neutrophils Percent Auto 62.7 % (45-73); Platelet Count 353 X10*3/uL (160-400); Red Blood Count 5.11 X10*6/uL (4.20-5.50); Red Cell Distribution Width 13.7 % (11.0-16.0); White Blood Count 16.8 X10*3/uL (4.8-10.8)
[2023-07-04 10:16] LABS: HIV AB/AG Nonreactive (Nonreactive); HIV Num 1 0.04 S/CO (0.00-0.99)
[2023-07-04 10:28] LABS: Free T4 (Free Thyroxine) 0.94 ng/dL (0.71-1.85); T4 Thyroxine 7.5 ug/dL (4.5-12.0)
== END 2023-07-04 08:39 | disposition home or self-care (01) ==
LOC: HO.LAB 08:38
PROVIDERS: PCP Family Medicine; Visit Provider Family Medicine
DX: R63.4 Abnormal weight loss (principal)
CPT/HCPCS: 36415; 84436; 84439; 85025; 87389

== ENCOUNTER 2023-07-20 07:13 | Outpatient (REF) | payer MEDICARE, MEDICAID, SELFPAY ==
--- NOTE | ~2023-07-20 | CT_ITS ---
EXAMINATION: CT CHEST WITHOUT CONTRAST CLINICAL INFORMATION: Shortness of breath. COMPARISON: None available. TECHNIQUE: Multidetector volumetric CT imaging of the chest was done. Axial MIP volume rendering provided. Sagittal and coronal reformatted images were obtained. This CT examination was performed using dose optimization techniques as appropriate, variously including the following: *Automated exposure control *Adjustment of mA and/or kV according to patient size (this includes techniques or standardized protocols for targeted exams where dose is matched to indication/reason for exam; i.e. extremities or head) *Use of iterative reconstruction technique DLP: 120 mGy-cm FINDINGS: LUNGS: Mild emphysema. Mild diffuse airway wall thickening. Mosaic attenuation consistent with air trapping. Small areas of mucous plugging in the subsegmental airways of the right lower lobe. No consolidation. Scattered micronodules for which no imaging follow-up is recommended according to Fleischner Society guidelines. 3 mm groundglass nodule in the lateral middle lobe series 5 image 269. MEDIASTINUM: No aortic aneurysm. No pericardial effusion. CORONARY ARTERY CALCIFICATION: None visualized on this study. PLEURA: There is no pleural effusion. No pleural mass or thickening. AXILLA: No lymphadenopathy. UPPER ABDOMEN: Cholecystectomy. OSSEOUS STRUCTURES: Degenerative changes in the spine. CT/CT chest wo IV con IMPRESSION: Emphysema. Airways disease with air trapping and small mucous plugs. 3 mm nonspecific groundglass nodule in the lateral middle lobe. No routine follow-up imaging is recommended per Fleischner Society guidelines. Fleischner guidelines were followed.
== END 2023-07-20 07:14 | disposition home or self-care (01) ==
LOC: HO.CT 07:13
PROVIDERS: PCP Family Medicine; Visit Provider Family Medicine
DX: R06.02 Shortness of breath (principal); R63.4 Abnormal weight loss
CPT/HCPCS: 71250

== ENCOUNTER 2023-07-31 18:28 | Emergency (ER) | payer MEDICARE, MEDICAID, SELFPAY ==
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
--- NOTE | ~2023-07-31 | XR_ITS ---
EXAMINATION: XR CHEST CLINICAL INFORMATION: Cough COMPARISON: CT chest 07/20/2023 and chest x-ray 06/15/2022 TECHNIQUE: 2 views of the chest were obtained. FINDINGS: No significant abnormality is noted involving the heart, lungs, mediastinum, bony thorax or soft tissues. Emphysematous changes were appreciated on the recent CT scan which are beyond the resolution of the current study. XR/XR chest 2V IMPRESSION: No acute intrathoracic disease.
[2023-07-31 18:31] VITALS: BP 123/75; PULSE 60; RESP 19; TEMP 35.8; O2SAT 97; BMI 25.9
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
[2023-07-31 19:10] LABS: COVID-19 Test Negative (Negative); IDNOW Serial# 08D9AD1C; IDNOW Serial# 9DB6401D; IDNOW Serial# BCCEAD1C; Influenza A Negative (Negative); Influenza B2 Negative (Negative); Strep A Nucleic Acid Negative (Negative)
[2023-07-31] MEDS: dexAMETHasone sod phosphate 4 MG/ML VIAL IVPUSH (20:44)
[2023-07-31] MEDS: Lidocaine HCl Viscous 2 % 15 ML SOLUTION MUCOUS MEM (20:44)
--- NOTE | 2023-07-31 20:51 | PC.NURSE ---
attempted to medicate patient per MAR- pt took dexamethasone with grimacing and moaning- provided pt with lidocaine viscous pt took a small amount into mouth and then stated i dont want this, i'm going to vomit emesis bag provided. pt did not vomit. MD Calle aware no new orders at this.
== END 2023-07-31 21:31 | disposition home or self-care (01) ==
PROVIDERS: Physician Assistant; Emergency Provider Emergency Medicine; PCP Family Medicine
DX: J02.9 Acute pharyngitis, unspecified (principal); J20.8 Acute bronchitis due to other specified organisms; Z11.52 Encounter for screening for COVID-19; E11.9 Type 2 diabetes mellitus without complications; I10 Essential (primary) hypertension; E78.5 Hyperlipidemia, unspecified; F17.210 Nicotine dependence, cigarettes, uncomplicated; Z79.899 Other long term (current) drug therapy
CPT/HCPCS: 70490; 71046; 87502; 87635; 87651; 96374; 99282; 99284; J1100

== ENCOUNTER 2023-09-22 03:22 | Emergency (ER) | payer OTHER, MEDICARE, MEDICAID, SELFPAY ==
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
[2023-09-22 03:27] VITALS: BP 126/62; PULSE 63; RESP 16; TEMP 36.3; O2SAT 96; BMI 26.6
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
[2023-09-22 05:49] VITALS: BP 116/72; PULSE 63; RESP 18; TEMP 36.4; O2SAT 98
== END 2023-09-22 05:50 | disposition home or self-care (01) ==
PROVIDERS: Emergency Provider Emergency Medicine; PCP Family Medicine
DX: Z04.1 Encounter for examination and observation following transport accident (principal); M79.18 Myalgia, other site; R51.9 Headache, unspecified; M25.512 Pain in left shoulder
CPT/HCPCS: 70450; 72100; 72125; 73030; 99284

== ENCOUNTER 2023-11-27 08:56 | Outpatient (AMB) | payer MEDICARE, MEDICAID, SELFPAY ==
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
[2023-11-27 09:03] VITALS: BP 128/72; PULSE 67; BMI 26.7
== END 2023-11-27 09:40 | disposition home or self-care (01) ==
PROVIDERS: PCP Family Medicine; Visit Provider Nurse Practitioner
DX: K21.9 Gastro-esophageal reflux disease without esophagitis (principal); R14.0 Abdominal distension (gaseous); M54.6 Pain in thoracic spine; K59.04 Chronic idiopathic constipation; Z83.71 Family history of colonic polyps; R11.2 Nausea with vomiting, unspecified; R63.4 Abnormal weight loss
CPT/HCPCS: 99214

== ENCOUNTER → 2023-11-27 08:56 | Outpatient (BNVA) | payer MEDICARE, MEDICAID, OTHER, SELFPAY | PROVIDERS: PCP Family Medicine; Visit Provider Nurse Practitioner | DX: Z01.818 Encounter for other preprocedural examination (principal); K21.9 Gastro-esophageal reflux disease without esophagitis; K59.04 Chronic idiopathic constipation; R10.9 Unspecified abdominal pain; R14.0 Abdominal distension (gaseous); R11.2 Nausea with vomiting, unspecified; R63.4 Abnormal weight loss; M54.6 Pain in thoracic spine; Z83.719 Family history of colon polyps, unspecified | CPT/HCPCS: 99212 ==

== ENCOUNTER 2023-12-08 10:39 | Emergency (ER) | payer MEDICARE, MEDICAID, SELFPAY ==
--- NOTE | ~2023-12-08 | XR_ITS ---
EXAMINATION: XR CHEST CLINICAL INFORMATION: Cough COMPARISON: Chest radiograph from 07/31/2023 TECHNIQUE: 2 views of the chest were obtained. FINDINGS: Bilateral low lung volumes. Bibasilar atelectasis versus scarring. No pneumothorax. Trachea is midline. Cardiac mediastinal silhouette is not enlarged. No large pleural effusion. Slight levocurvature of the thoracolumbar spine. Soft tissues are unremarkable. XR/XR chest 2V IMPRESSION: 1. Bilateral low lung volumes. 2. Bibasilar atelectasis versus scarring.
[2023-12-08 10:41] VITALS: BP 143/73; PULSE 84; RESP 20; TEMP 38.1; O2SAT 92; BMI 27.5
[2023-12-08] MEDS: Acetaminophen 325 MG TABLET 975 MG PO (11:46)
[2023-12-08] MEDS: Ibuprofen 400 MG TABLET PO (11:47)
[2023-12-08 11:50] LABS: Influenza A PCR NEGATIVE (Negative); Influenza B PCR NEGATIVE (Negative); Resp Syncy Virus RNA Qual PCR NEGATIVE (Negative); SARS COV2 PCR INHOUSE NEGATIVE (Negative)
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
[2023-12-08] MEDS: Albuterol/Iprat 2.5/0.5MG 3 ML AMPUL.NEB INHALE (12:26)
[2023-12-08 12:27] VITALS: PULSE 66; RESP 16; O2SAT 92
--- NOTE | 2023-12-08 12:53 | PC.NURSE ---
Pt reports cough/fever/headache x3 days. Denies being around anyone sick. LSCTA, no sob. Meds given as documented. Pt resting quietly, no apparent distress, her is at her bedside.
[2023-12-08 13:48] VITALS: PULSE 77; RESP 17; O2SAT 96
== END 2023-12-08 13:50 | disposition home or self-care (01) ==
PROVIDERS: Emergency Provider Student in an Organized Health Care Education/Training Program; PCP Family Medicine
DX: J40 Bronchitis, not specified as acute or chronic (principal); R51.9 Headache, unspecified; R05.9 Cough, unspecified; R50.9 Fever, unspecified; R07.9 Chest pain, unspecified; R11.10 Vomiting, unspecified; Z11.52 Encounter for screening for COVID-19; Z20.828 Contact with and (suspected) exposure to other viral communicable diseases
CPT/HCPCS: 0241U; 71046; 94640; 99284; 99285

== ENCOUNTER 2023-12-31 09:12 | Outpatient (AMB) | payer MEDICARE, MEDICAID, SELFPAY ==
[2023-12-31 09:34] VITALS: BP 132/60; PULSE 59; BMI 27.4
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
== END 2023-12-31 10:12 | disposition home or self-care (01) ==
PROVIDERS: PCP Family Medicine; Visit Provider Internal Medicine
DX: R14.0 Abdominal distension (gaseous) (principal); R10.9 Unspecified abdominal pain; K59.04 Chronic idiopathic constipation; K57.90 Diverticulosis of intestine, part unspecified, without perforation or abscess without bleeding; R63.4 Abnormal weight loss
CPT/HCPCS: 99214

== ENCOUNTER → 2023-12-31 09:12 | Outpatient (BNVA) | payer MEDICARE, MEDICAID, SELFPAY | PROVIDERS: PCP Family Medicine; Visit Provider Internal Medicine | DX: R10.9 Unspecified abdominal pain (principal); R14.0 Abdominal distension (gaseous); K59.04 Chronic idiopathic constipation; K57.90 Diverticulosis of intestine, part unspecified, without perforation or abscess without bleeding | CPT/HCPCS: 99212 ==

== ENCOUNTER → 2024-01-16 08:20 | Outpatient (REF) | payer MEDICARE, MEDICAID, SELFPAY ==
--- NOTE | ~2024-01-16 | NM_ITS ---
EXAMINATION: RADIONUCLIDE SOLID FOOD GASTRIC EMPTYING 4-HOUR STUDY CLINICAL INFORMATION: Nausea with vomiting. COMPARISON: No previous gastric emptying study is available for comparison. TECHNIQUE: A standard meal consisting of 4 oz of Egg Beaters brand tagged with 920 microcuries Tc-99m Sulfur Colloid, 8 oz water and 2 slices of toast with jelly was administered orally to the patient. Images were obtained using a dual head gamma camera in the anterior and posterior projections over of the stomach immediately post ingestion and at hourly intervals up to 3 hours post ingestion. Images were not obtained at 4 hours due to the minimal retention at 3 hours. The anterior and posterior counts at each time interval were averaged using the geometric mean and expressed as percentage of the immediate post ingestion counts. FINDINGS: There is good visualization of activity in the stomach immediately post ingestion. As the study progresses, there is good clearance of activity from the stomach and visualization of progressively increasing small bowel activity. By the end of the study, there is almost no retention noted in the stomach. Retention in the stomach at each time interval was: 1 hour 51% (normal 37%-90%) 2 hours 12% (normal 30%-60%) 3 hours 7% 4 hours (Not Obtained) (normal 0%-10%) NM/NM gastric emptying study IMPRESSION: Normal solid food gastric emptying study.
== END ==
LOC: HO.NUCMED 08:20
PROVIDERS: PCP Family Medicine; Visit Provider Nurse Practitioner
DX: R10.9 Unspecified abdominal pain (principal); R11.2 Nausea with vomiting, unspecified; R63.4 Abnormal weight loss
CPT/HCPCS: 78264; A9541

== ENCOUNTER 2024-01-21 07:38 | Outpatient (REF) | payer MEDICARE, MEDICAID, SELFPAY ==
--- NOTE | ~2024-01-21 | US_ITS ---
Mesenteric duplex ultrasound CLINICAL INDICATION: Abnormal weight loss and abdominal pain TECHNIQUE: Real-time ultrasound examination of the aorta and mesenteric arteries was attempted of including duplex Doppler evaluation of the origins of the celiac, superior mesenteric and inferior mesenteric arteries. FINDINGS: The visualized portion of the abdominal aorta does not demonstrate obvious plaque. Peak systolic velocity in the abdominal aorta measures 72 cm/sec. Celiac artery: Inspiration supine: 135 cm/sec Inspiration erect: 164 cm/sec Expiration supine: 156 cm/sec Expiration erect: 172 cm/sec Superior mesenteric artery: Proximal: 232 cm/sec Mid: 86.6 cm/sec Distal: 101 cm/sec Inferior mesenteric artery: 142 cm/sec Splenic artery: 112 cm/sec Hepatic artery: 139 cm/sec US/US SMA IMPRESSION: No evidence of stenosis involving the origins of the celiac or superior mesenteric arteries. If clinical suspicion persists, CTA may be of use for further evaluation.
== END 2024-01-21 07:39 | disposition home or self-care (01) ==
LOC: HO.US 07:38
PROVIDERS: PCP Family Medicine; Visit Provider Internal Medicine
DX: R10.32 Left lower quadrant pain (principal); R14.0 Abdominal distension (gaseous); R63.4 Abnormal weight loss
CPT/HCPCS: 93976

== ENCOUNTER 2024-07-25 09:50 | Outpatient (AMB) | payer MEDICARE, MEDICAID, SELFPAY ==
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
== END 2024-07-25 11:44 | disposition home or self-care (01) ==
PROVIDERS: PCP Family Medicine; Visit Provider Physician Assistant Medical
DX: F17.210 Nicotine dependence, cigarettes, uncomplicated (principal)
CPT/HCPCS: G0296

== ENCOUNTER 2024-07-25 10:02 | Outpatient (REF) | payer MEDICARE, MEDICAID, SELFPAY | END 2024-07-25 10:03 | disposition home or self-care (01) | LOC: HO.CT 10:02 | PROVIDERS: Visit Provider Physician Assistant Medical | DX: Z12.2 Encounter for screening for malignant neoplasm of respiratory organs (principal); F17.210 Nicotine dependence, cigarettes, uncomplicated | CPT/HCPCS: 71271; G0296 ==

== ENCOUNTER 2024-08-13 07:30 | Day surgery (SDC) | payer MEDICARE, MEDICAID, SELFPAY ==
[2024-08-11 14:28] VITALS: BMI 27.4
[2024-08-11 15:58] VITALS: BMI 26.6
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
[2024-08-13 08:47] VITALS: BP 139/94; PULSE 67; RESP 16; TEMP 36.7; O2SAT 96; BMI 28.0
[2024-08-13] MEDS: Lactated Ringers 1,000 ML 100 ML IVCONT (09:07)
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
--- NOTE | 2024-08-13 10:27 | HO.OPN-COLON ---
Colonoscopy Operative Note Operative Note Date of Service: 08/13/24 Narrative: Operative Information Procedure Description: Colonoscopy Indication: abdominal pain Anesthesia: MAC COLONOSCOPY Instrument: Olympus variable stiffness pediatric scope 190L Colonoscopy Monitoring: Vital signs and clinical assessment, continuous EKG monitoring, Pulse oximetry, Carbon Dioxide monitoring and blood pressure monitoring were done throughout the procedure. Colon withdrawal time was 14 minutes. Procedure: The patient was placed in the left lateral decubitis position and pre-procedure medications were administered. After a digital rectal examination of the ano-rectum, the video colonoscope was inserted into the rectum and advanced through the colon to the cecum/TI. The colonoscope was slowly withdrawn in a retrograde panoramic fashion and the colon mucosa was carefully examined including a retroflexed view of the rectum. Findings and interventions are described below. Procedure Difficulty: mdoerate Findings: Terminal Ileum-normal, random bx taken colon bx taken from right, left sides of colon Cecum: 4-6 mm sessile polyp removed with cold forceps Ascending Colon: normal Transverse Colon -normal Descending Colon: mild melanosis Sigmoid Colon: 4-6 mm sessile polyp removed with cold forceps, melanosis coli noted Rectum: Retroflexion with small internal hemorrhoids seen, grade I Anorectum - normal Intervention: cold forceps Colon preparation: [place] Bowel Preparation Scale Right colon; 2 Transverse colon: 2 Left colon; 2 (0 = Unprepared colon segment with mucosa not seen due to solid stool that cannot be cleared. 1 = Portion of mucosa of the colon segment seen, but other areas of the colon segment not well seen due to staining, residual stool and/or opaque liquid. 2 = Minor amount of residual staining, small fragments of stool and/or opaque liquid, but mucosa of colon segment seen well. 3 = Entire mucosa of colon segment seen well with no residual staining, small fragments of stool or opaque liquid) Impression and Post Procedure Diagnosis: colon polyps internal hemorrhoids Plan: High fiber diet leaflet Avoid straining at stool, epsom salts and sitz bath, anusol supps or cream Repeat Colonoscopy in 5 years if adenomatous polyps, 10 yrs if hyperplastic or earlier if clinically indicated Above findings were reviewed with the patient and relevant handouts were provided if indicated.
[2024-08-13 10:33] VITALS: BP 86/51; PULSE 65; RESP 16; TEMP 36.8; O2SAT 97
[2024-08-13 10:38] VITALS: BP 91/54; PULSE 57; RESP 17; O2SAT 97
[2024-08-13 10:48] VITALS: BP 120/65; PULSE 63; RESP 20; TEMP 36.3; O2SAT 97
== END 2024-08-13 11:28 | disposition home or self-care (01) ==
PROVIDERS: Visit Provider Internal Medicine Gastroenterology
PROC: 0DJD8ZZ Inspection of Lower Intestinal Tract, Via Natural or Artificial Opening Endoscopic (ICD-10-PCS; CPT 45378; principal; 2024-08-13 10:00)
DX: R10.13 Epigastric pain (principal); R10.30 Lower abdominal pain, unspecified; K59.04 Chronic idiopathic constipation; K63.5 Polyp of colon; K63.89 Other specified diseases of intestine; K64.0 First degree hemorrhoids; E55.9 Vitamin D deficiency, unspecified; E27.49 Other adrenocortical insufficiency; E03.8 Other specified hypothyroidism; E23.0 Hypopituitarism; E23.2 Diabetes insipidus; M79.7 Fibromyalgia; Z87.828 Personal history of other (healed) physical injury and trauma; Z18.10 Retained metal fragments, unspecified; Z97.0 Presence of artificial eye; Z98.890 Other specified postprocedural states; Z88.5 Allergy status to narcotic agent; F17.210 Nicotine dependence, cigarettes, uncomplicated; R14.0 Abdominal distension (gaseous)
CPT/HCPCS: 45380; 88305; J2003; J2704

== ENCOUNTER → 2024-08-13 07:30 | Outpatient (BNV) | payer MEDICARE, MEDICAID, SELFPAY | PROVIDERS: Visit Provider Internal Medicine Gastroenterology | DX: K59.04 Chronic idiopathic constipation (principal); K63.5 Polyp of colon; K63.89 Other specified diseases of intestine; K64.0 First degree hemorrhoids | CPT/HCPCS: 45380 ==

== ENCOUNTER 2024-10-16 08:50 | Outpatient (REF) | payer MEDICARE, MEDICAID, SELFPAY ==
[2024-10-16 09:28] LABS: Basophils Absolute Auto 0.1 X10*3/uL (0.0-0.2); Eosinophils Absolute Auto 0.5 X10*3/uL (0.0-0.4); Eosinophils Percent Auto 4.2 % (0-4); Hematocrit 44.4 % (37.0-47.0); Hemoglobin 14.6 g/dl (12.0-16.0); Imm Gran Abs Auto 0.03 X10*3/uL (0.00-0.03); Imm Gran Pct Auto 0.3 % (0.0-0.4); Lymphocytes Absolute Auto 5.1 X10*3/uL (1.2-4.9); Lymphocytes Percent Auto 48.3 % (20-40); MANUAL DIFF FLAG SCAN; Mean Corpuscular HGB Conc 32.9 g/dl (31.0-35.0); Mean Corpuscular Volume 91.4 fL (80.0-98.0); Mean Platelet Volume 9.6 fL (9.4-12.3); Monocytes Absolute Auto 0.7 X10*3/uL (0.1-1.2); Monocytes Percent Auto 6.3 % (2-11); Neutrophils Absolute Auto 4.2 x10*3/uL (2.0-8.3); Neutrophils Percent Auto 39.9 % (45-73); Platelet Count 296 X10*3/uL (160-400); Red Blood Count 4.86 X10*6/uL (4.20-5.50); Red Cell Distribution Width 13.6 % (11.0-16.0); SCAN SMEAR FLAG 1; White Blood Count 10.6 X10*3/uL (4.8-10.8)
[2024-10-16 09:50] LABS: SLIDE REVIEW VERIFIED
[2024-10-16 10:48] LABS: Creatinine Urine 111.38 mg/dL; Microalbumin Urine < 5.0 mg/L
[2024-10-16 11:10] LABS: Alanine Aminotransferase 17 U/L (0-31); Albumin Level 3.8 g/dL (3.5-5.0); Alkaline Phosphatase 79 U/L (39-117); Anion Gap 8 (12-20); Aspartate Amino Transferase 24 U/L (5-31); Bilirubin Direct 0.1 mg/dL (0.0-0.5); Bilirubin Total 0.4 mg/dL (0.0-1.0); Blood Urea Nitrogen 18 mg/dL (9-16); Calcium 8.7 mg/dL (8.4-10.2); Carbon Dioxide 32 mmol/L (22-29); Chloride 105 mmol/L (96-108); Cholesterol 149 mg/dL (<200); Estimated Glomerular Filt Rate > 60; Glucose Random 88 mg/dL (60-115); HDL Cholesterol 32 mg/dL (>40); LDL Cholesterol Calculated 89 mg/dL (<100); Sodium 141 mmol/L (135-145); Total Protein 6.9 g/dL (6.5-8.0); Triglycerides 143 mg/dL (<150)
== END 2024-10-16 08:51 | disposition home or self-care (01) ==
LOC: HO.LAB 08:50
PROVIDERS: Nurse Practitioner; PCP Family Medicine; Visit Provider Family Medicine
DX: Z01.818 Encounter for other preprocedural examination (principal); E27.49 Other adrenocortical insufficiency; E78.5 Hyperlipidemia, unspecified
CPT/HCPCS: 36415; 80053; 80061; 80076; 82043; 82248; 82570; 85025

== ENCOUNTER 2024-11-26 14:40 | Outpatient (AMB) | payer MEDICARE, MEDICAID, SELFPAY ==
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
[2024-11-26 14:51] VITALS: BP 127/58; PULSE 62; BMI 27.3
--- OUTSIDE RECORDS SUMMARY | 2024-11-26 18:04 | XMS_ITS | Encounter Summary ---
Author Organization [employer] Address [address] [place] [address] Care Team Providers Care [employer] Tutor Name Role Phone Sofia Gonzalez MD Primary Care Provider [phone] Emi Mcclellan Unavailable Encounter Details Date Type Department Care Team (Late st Contact Info) Description 08/03/2023 Orders Only [facility] MEDICINE [address], [place] [phone] Sofia Gonzalez MD [address] [place], [place] [phone] Herniation of intervertebral disc at C4-C5 level (Primary Dx) Social History Tobacco Use Types Packs/Day Years Used Date Smoking Tobacco: Every Day Cigarettes Smokeless Tobacco: Never Housing Stability Answer Date Recorded What is your housing situation today? I have housing today, but I am worried about losing housing in the future 07/23/[address] you li ve. Do you have problems with any of the following? None of the above 07/23/2023 Food Insecurity Answer Date Recorded Within the past 12 months, y ou worried that your food would run out before you got money to buy more: Never True 07/23/2023 Within the past 12 months,th e food you bought just didn't last and you didn't have enough money to get more: Never True Transportation Answer Date Recorded In the past 12 months, has l ack of transportation kept you from medical appts, meetings, work or from getting things needed for daily living? No 07/23/2023 Utilities Answer Date Recorded In the past 12 months, has t he electric, gas, oil or water company threatened to shut off services in your home? No 07/23/2023 Depression Answer Date Recorded Patient Health Questionnaire-2 Score 0 10/11/2022 Comments Unknown Sex and Gender Information Value Date Recorded Sex Assigned at Female 07/31/2022 10:18 AM EDT Legal Sex Female 10:18 AM EDT Gender Identity Female 07/31/2022 10:18 AM EDT Sexual Orientation Choose not to disclose 2021 10:18 AM EDT documented as of this encounter Plan of Treatment Upcoming Encounters Date Type Department Care Team (Late st Contact Info) Description 12/05/2024 9:00 AM EST Office Visit [facility] ADULT DENTAL [address] [place] [phone] Miguel Arias DMD [address] [place] [address] 02/02/2025 9:00 AM EDT Office Visit [facility] MEDICINE [address] [place] [address] Sofia Gonzalez MD [address] [place] [phone] documented as of this encounter Visit Diagnoses Diagnosis Herniation of intervertebral disc at C4-C5 level- Primary documented in this encounter Care Teams [employer] Tutor Relationship Specialty Start Date End Date Sofia Gonzalez MD [address] [place] [id number] PCP - General Family Medicine 10/01/18 Emi Mcclellan [address] [place] [address] Drive [address] [place] [address] Gastroenterology 11/26/24 documented as of this encounter
--- OUTSIDE RECORDS SUMMARY | 2024-11-26 18:05 | XMS_ITS | Encounter Summary ---
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 Name Role Phone Sofia Gonzalez MD Primary Care Provider [phone]- [phone] Emi Mcclellan Unavailable Encounter Details Date Type Department Care Team (Latest Contact Info) Description 10/19/2021 Abstract [facility] CONVERSIONS Dental, Provider, DDS Social History Tobacco Use Types Packs/Day Years Used Date Smoking Tobacco: Never Assessed Comments Unknown Sex and Gender Information Value Date Recorded Sex Assigned at Female 07/31/2022 10:18 AM EDT Legal Sex Female 10:18 AM EDT Gender Identity Female 07/31/2022 10:18 AM EDT Sexual Orientation Choose not to disclose 2021 10:18 AM EDT documented as of this encounter Plan of Treatment Upcoming Encounters Date Type Department Care Team ( st Contact Info) Description 12/05/2024 9:00 AM EST Office Visit [facility] ADULT DENTAL [address] [place] [address] Miguel Arias, LIBERTAD [address] [place] [address] 02/02/2025 9:00 AM EDT Office Visit [facility] MEDICINE [address] [place] [address] Sofia Gonzalez MD [address] [place] [address] documented as of this encounter Visit Diagnoses Not on filedocumented in this encounter Care Teams Band Sawmill Operator Relationship Specialty Start Date End Date Sofia Gonzalez MD [address] [place] [id number] PCP - General Family Medicine 10/01/18 Emi Mcclellan [address] [place] [address] 3rd [place] [address] Gastroenterology 11/26/24 documented as of this encounter
--- OUTSIDE RECORDS SUMMARY | 2024-11-26 18:05 | XMS_ITS | Clinical Summary ---
Author Organization [employer] Address [address] [place] [address] Care Team Providers Care Environmental Law Professor Name Role Phone Sofia Gonzalez MD Primary Care Provider [phone] Emi Mcclellan Unavailable Allergies Active Allergy Reactions Criticality Noted Date Comments Morphine 08/02/2018 Medications * This document contains information received from the source organization and may not represent a complete record from that organization. desmopressin (DDAVP) 0.2 MG tablet Take 1 tablet by mouth every 12 (twelve) hours. 3 Active methadone (Dolophine) 10 MG tablet 60 mg tabs via [facility] Methadone program Active hydrocortisone (Cortef) 5 MG tablet TAKE 3 TABS IN THE MORNING AND ONE IN THE AFTERNOON 2 Active estradiol-norethi ndrone (Activella) 1-0.5 MG tablet take 1 tablet by oral route every day Active Calcium Carb-Cholecalcife rol 600-10 MG-MCG tablet take 1 tab po bid 8 Active diphenhydrAMINE (BENADryl) 25 MG capsuleIndication s:Itchy scalp Take 1 capsule (25 mg) by mouth every 6 (six) hours if needed for itching. 30 capsule 2 Active Fluocinolone Acetonide Scalp 0.01 % oilIndications:It florian scalp APPLY 30 ML TOPICALLY IF NEEDED EACH DAY (ITCHY SCALP). MAY SUBSTITUTE OIL IF SHAMPOO IS NOT AVAILABLE OR IS NOT COVERED BY INSURANCE. 236.56 mL 2 Active methadone (Dolophine) 0.1 mg/mL solution Take 63 mg by mouth. 1 Active D3-1000 25 MCG (1000 UT) capsule TOME 1 C PSULA POR V A ORAL DAILY 30 DAYS 2 Active desmopressin (DDAVP) 0.2 MG tablet Take 0.2 mg by mouth. Active Dexilant [address] capsule Take 1 capsule by mouth in the morning. 2 Active dicyclomine (Bentyl) 20 MG tablet TAKE 2 TABLETS BY MOUTH 4 TIMES A DAY 2 Active famotidine (Pepcid) 40 MG tablet TAKE 1 TABLET BY MOUITH AT BEDTIME 2 Active lubiprostone (Amitiza) 24 MCG capsule TOME 1 C PSULA POR V A ORAL DOS VECES AL D A *DISCONTINUE 8 MCG 2 Active norgestimate-ethi nyl estradiol (Ortho-Cyclen) 0.25-35 MG-MCG tablet TOME ESTRADA TABLETA TODOS LOS MATHIS 9 Active Senexon-S 8.6-50 MG tablet TOME DOS TABLETAS POR V A ORAL TODOS LOS D AL ACOSTARSE 2 Active Synthroid 112 MCG tablet TOME ESTRADA TABLETA TODOS LOS D 2 Active hyoscyamine (Anaspaz,Levsin) 0.125 MG tablet TAKE 2 TABS (0.25 MG) ORALLY 4 TIMES A DAY NEEDED FOR DYSPEPSIA NOT COVERED 3 Active Simethicone Ultra Strength 180 MG capsule TAKE 1 CAPS (180 MG) ORALLY 4 TIMES A DAY NEEDED FOR ABDOMINAL DISTENTION 3 Active nortriptyline (Pamelor) 10 MG capsule 3 Active estradiol (Estrace) 0.1 MG/GM vaginal cream APPLY A SMALL AMOUNT TO AFFECTED AREA AND INSERT 1/2 GRAM VAGINALLY 2 TIMES PER WEEK AT BEDTIME 3 Active hydrocortisone 2.5 % cream Apply pea sized amount to skin bid for 1 week 15 g 3 Active lidocaine (Lidoderm) 5 % patch Apply 1 patch topically in the morning. Remove & discard patch within 12 hours or as directed by MD. 15 patch 3 3 Active albuterol (ProAir HFA) 108 (90 Base) MCG/ACT inhalerIndication s:Mild intermittent asthma with exacerbation 2 puffs every 4 hours as needed 18 g 1 3 Active fluticasone (Flovent) 220 MCG/ACT inhalerIndication s:Mild intermittent asthma with exacerbation Inhale 1 puff in the morning and at bedtime. Rinse mouth with water after use to reduce aftertaste and incidence of candidiasis. Do not swallow. 12 g 11 3 Active predniSONE (Deltasone) 20 MG tablet 2 tabs po daily for 5 days 10 tablet 3 Active Bisacodyl EC 5 MG EC tabletIndications :Irritable bowel syndrome, unspecified type TOME DOS TABLETAS POR V A ORAL AL ACOSTARSE POR 2 D *OTC* 4 Active cyclobenzaprine (Flexeril) 10 MG tabletIndications :Total body pain TAKE 1 TABLET BY MOUTH 3 TIMES A DAY NEEDED FOR MUSCLE SPASM 3 Active Hydrocortisone Sod Suc, PF, (Solu-CORTEF) 100 MG reconstituted solutionIndicatio ns:Secondary adrenal insufficiency (CMS/HCC) 100 mg. 1 Active GaviLyte-G 236 g solutionIndicatio ns:Irritable bowel syndrome, unspecified type PLEASE SEE ATTACHED FOR DETAILED DIRECTIONS 4 Active pravastatin (Pravachol) 20 MG tabletIndications :Dyslipidemia TOME ESTRADA TABLETA TODOS LOS MATHIS AL ACOSTARSE 90 tablet 3 4 Active nicotine (Nicotine Step 2) 14 MG/24HR patch Place 1 patch on the skin 1 (one) time each day at the same time. 42 patch 4 Active nicotine (Nicoderm CQ) 7 MG/24HR patch Place 1 patch on the skin 1 (one) time each day at the same time. 14 patch 4 Active nicotine polacrilex (Nicotine Mini) 2 MG lozenge Dissolve 1 lozenge (2 mg) in the mouth if needed for smoking cessation. Use every 1 to 2 hours and as needed 100 lozenge 4 Active loratadine (Claritin) 10 MG tabletIndications :Seasonal allergies TAKE 1 TABLET BY MOUTH EVERY DAY FOR ALLERGIES 90 tablet 4 Active azithromycin (Zithromax Z-Jorge) 250 MG tablet Take 2 tablets once on day 1, then 1 tablet 1x/day for 4 days. 6 tablet 4 Active diazePAM (Valium) 10 MG tablet Take 1 tablet (10 mg) by mouth 1 (one) time for 1 dose. 1 tablet 4 Active fluticasone (Flonase) 50 MCG/ACT nasal spray ADMINISTER 2 SPRAYS INTO EACH NOSTRIL ONCE PER DAY. 48 mL 5 Active Active Problems Problem Noted Date Diagnosed Date Severe dental caries 09/30/2024 Non-restorable tooth 09/30/2024 Cardiac risk counseling 08/20/2024 Overview (08/20/2024): Calculated 08/20/24: Borderline risk The 10-year ASCVD risk score (Lanny NOLAN, et al., 2019) is: 6.6% Values used to calculate the score: Age: 59 years Sex: Female Is Non- : No Diabetic: No Tobacco smoker: Yes Systolic Blood Pressure: 122 mmHg Is BP treated: No HDL Cholesterol: 36 mg/dL Total Cholesterol: 160 mg/dL Lab Results Component Value Date LDLCHOLCAL 98 05/24/2023 -Atherosclerotic Cardiovascular Disease (ASCVD) Risk Calculator is intended for a person age 40-79 without ASCVD and with LDL-cholesterol < 190/mg/dl to assesses the chances of developing heart disease over the next 10 years. -Tobacco cessation: discussed -Statin therapy:unchanged -Importance of moderate physical activity and nutrition interventions discussed. 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 01/28/2024 Right shoulder tendonitis 01/28/2024 Thoracic back pain 01/28/2024 Colon cancer screening 11/27/2023 Overview (08/11/2024): Seen by GI with Greta Lainez ANP-C 11/20/2023 and colonoscopy ordered - Has appointment on 2024 for Colonoscopy Assessment & Plan (08/11/2024 9:56 AM EST): Seen by GI with Greta Lainez ANP-C 11/20/2023 and colonoscopy ordered - Has appointment on 2024 for Colonoscopy Assessment & Plan (02/04/2024 11:38 AM EDT): Seen by GI with Greta Lainez ANP-C 11/20/2023 and colonoscopy ordered - SOB (shortness of breath) 06/28/2023 Weight loss 06/27/2023 Overview (08/11/2024): -Being followed for abnormal mammo. -Colon cancer testing neg 05/31/2017. -Will order labs. -TSH would not be helpful given her panhypopit, HIV neg 05/24/2023, labs otherwise normal 05/24/2034 -Weight 07/2022 was 167lbs. -Weight 06/27/[address] Low dose CT of chest due to heavy tobacco Hx. - 08/11/24 Weight loss has stabilized. Has gain some weight Assessment & Plan (08/11/2024 9:31 AM EST): -Being followed for abnormal mammo. -Colon cancer testing neg 05/31/2017. -Will order labs. -TSH would not be helpful given her panhypopit, HIV neg 05/24/2023, labs otherwise normal 05/24/2034 -Weight 07/2022 was 167lbs. -Weight 06/27/[address] is [address] Low dose CT of chest due to heavy tobacco Hx. - 08/11/24 Weight loss has stabilized. Has gain some weight Assessment & Plan (02/04/2024 11:35 AM EDT): -Being followed for abnormal mammo. -Colon cancer testing neg 05/31/2017. -Will order labs. -TSH would not be helpful given her panhypopit, HIV neg 05/24/2023, labs otherwise normal 05/24/2034 -Weight 07/2022 was 167lbs. -Weight 06/27/[address] is [address] Low dose CT of chest due to heavy tobacco Hx. Assessment & Plan (06/27/2023 11:31 AM EDT): -Being followed for abnormal mammo. -Colon cancer testing neg 05/31/2017. -Will order labs. -TSH would not be helpful given her panhypopit, HIV neg 05/24/2023, labs otherwise normal 05/24/2034 -Weight 07/2022 was 167lbs. -Weight 06/27/2023 is 149lbs. -Low dose CT of chest due to heavy tobacco Hx. -GI work up unremarkable. Viral URI 06/25/2023 Mild intermittent asthma with exacerbation 06/25 Overview (06/27/2023): On prednisone. Start Flovent 220 BID 06/27/2023. Assessment & Plan (08/11/2024 10:57 AM EST): On prednisone. Start Flovent 220 BID 06/27/2023. Assessment & Plan (02/04/2024 11:17 AM EDT): On prednisone. Start Flovent 220 BID 06/27/2023. Assessment & Plan (06/27/2023 11:28 AM EDT): On prednisone. Start Flovent 220 BID 06/27/2023. Assessment & Plan (06/25/2023 3:26 PM EDT): Rapid flu and covid tests are NEG. Send PCR confirmation. Patient has bronchitis, I will give Augmentin due to fever >48h Use albuterol inh w spacer q4h Counseled to quit smoking Take tylenol prn FU w PCP Abnormal mammogram 04/12/2023 Overview (08/11/2024): Pt had a unilateral left breast mammo that showed BIRADS 4. -Stereotactic biopsy of left breast done 05/09/2023 that was benign, recomending f/u 6 months. -05/28/24 BIRADS 2, recommend repeat in 2 years Assessment & Plan (08/12/2024 10:27 AM EST): Pt had a unilateral left breast mammo that showed BIRADS 4. -Stereotactic biopsy of left breast done 05/09/2023 that was benign, recomending f/u 6 months. -05/28/24 BIRADS 2, recommend repeat in 2 years Assessment & Plan (04/12/2023 9:17 AM EDT): Pt had a unilateral left breast mammo that showed BIRADS 4. Recommending stereotactic biopsy for calcification posterior left upper breast on 05/09/23 at [facility]. Other specified health status 04/12/2023 Overview (08/11/2024): -next physical exam due after 08/11/2025. -eye care facilitated by [facility] last done 11/06/2022. -dental home is [facility] last done 04/02/2023. -health care proxy filed 02/04/2024 Assessment & Plan (08/11/2024 11:00 AM EST): -next physical exam due after 08/11/2025. -eye care facilitated by [facility] last done 11/06/2022. -dental home is [facility] last done 04/02/2023. -health care proxy filed 02/04/2024 Assessment & Plan (02/04/2024 11:13 AM EDT): -next physical exam due after 2024. -eye care facilitated by [facility] last done 11/06/2022. -dental home is [facility] last done 04/02/2023. -health care proxy filed 02/04/2024 Assessment & Plan (04/12/2023 9:16 AM EDT): -next physical exam due after 04/12/2024 -eye care facilitated by [facility] last done 11/06/2022 -dental home is [facility] last done 04/02/2023. Abdominal bloating 01/26/2023 Overview (08/11/2024): -Office visit 01/23/23, they recomomended hyoscyamine but they were unsure if insurance would cover it. -Dexilant was not covered, prior authorization placed. Simethicone added 12/2022. -Cause of pain unclear, recommending X-ray of thoracic spine to see if rediculaur musculoskeletal pain is a possible part of Dx. -Dx is wide and could include functional bowel pain, myofacial pain, ridicular pain, hormonal mediated pain, or psycho gentic due to longer term opiate desensitization of spinal cord. -Seen by GI Emi Encarnacion MD 01/25/24 Ddx include mesenteric ischemia, diverticular disease, colitis. Plan: - Mesenteric US - Diagnostic colo - Based on testing if SCAD or SUDD, low threshold to trial mesalamine enemas - Fiber supplementation - Miralax as needed to avoid constipation and straining Assessment & Plan (08/11/2024 10:01 AM EST): -Office visit 01/23/23, they recomomended hyoscyamine but they were unsure if insurance would cover it. -Dexilant was not covered, prior authorization placed. Simethicone added 12/2022. -Cause of pain unclear, recommending X-ray of thoracic spine to see if rediculaur musculoskeletal pain is a possible part of Dx. -Dx is wide and could include functional bowel pain, myofacial pain, ridicular pain, hormonal mediated pain, or psycho gentic due to longer term opiate desensitization of spinal cord. -Seen by GI Emi Encarnacion MD 01/25/24 Ddx include mesenteric ischemia, diverticular disease, colitis. Plan: - Mesenteric US - Diagnostic colo - Based on testing if SCAD or SUDD, low threshold to trial mesalamine enemas - Fiber supplementation - Miralax as needed to avoid constipation and straining Assessment & Plan (02/04/2024 11:35 AM EDT): Office visit 01/23/23, they recomomended hyoscyamine but they were unsure if insurance would cover it. -Dexilant was not covered, prior authorization placed. Simethicone added 12/2022. -Cause of pain unclear, recommending X-ray of thoracic spine to see if rediculaur musculoskeletal pain is a possible part of Dx. -Dx is wide and could include functional bowel pain, myofacial pain, ridicular pain, hormonal mediated pain, or psycho gentic due to longer term opiate desensitization of spinal cord. -Seen by GI Emi Encarnacion MD 01/25/24 Ddx include mesenteric ischemia, diverticular disease, colitis. Plan: - Mesenteric US - Diagnostic colo - Based on testing if SCAD or SUDD, low threshold to trial mesalamine enemas - Fiber supplementation - Miralax as needed to avoid constipation and straining Assessment & Plan (04/12/2023 9:18 AM EDT): Seen GI 01/03/2023, a CT scan was ordered. Assessment & Plan (01/26/2023 9:22 AM EDT): Seen GI 01/03/2023, a CT scan was ordered. Complex renal cyst 01/26/2023 LLQ abdominal pain 01/26/2023 Overview (08/11/2024): -CT scan done 01/18/23 that showed complex cyst upper pole of left kidney 1.4cm, mild constipation, otherwise unremarkable. -Office visit 01/23/23, they recomomended hyoscyamine but they were unsure if insurance would cover it. -Dexilant was not covered, prior authorization placed. Simethicone added 12/2022. -Cause of pain unclear, recommending X-ray of thoracic spine to see if rediculaur musculoskeletal pain is a possible part of Dx. -Dx is wide and could include functional bowel pain, myofacial pain, ridicular pain, hormonal mediated pain, or psycho gentic due to longer term opiate desensitization of spinal cord. -Seen by GI Emi Encarnacion MD 01/25/24 Ddx include mesenteric ischemia, diverticular disease, colitis. Plan: - Mesenteric US - Diagnostic colo - Based on testing if SCAD or SUDD, low threshold to trial mesalamine enemas - Fiber supplementation - Miralax as needed to avoid constipation and straining -encouraged to follow-up with GI 08/11/24 Assessment & Plan (08/11/2024 11:02 AM EST): -CT scan done 01/18/23 that showed complex cyst upper pole of left kidney 1.4cm, mild constipation, otherwise unremarkable. -Office visit 01/23/23, they recomomended hyoscyamine but they were unsure if insurance would cover it. -Dexilant was not covered, prior authorization placed. Simethicone added 12/2022. -Cause of pain unclear, recommending X-ray of thoracic spine to see if rediculaur musculoskeletal pain is a possible part of Dx. -Dx is wide and could include functional bowel pain, myofacial pain, ridicular pain, hormonal mediated pain, or psycho gentic due to longer term opiate desensitization of spinal cord. -Seen by GI Emi Encarnacion MD 01/25/24 Ddx include mesenteric ischemia, diverticular disease, colitis. Plan: - Mesenteric US - Diagnostic colo - Based on testing if SCAD or SUDD, low threshold to trial mesalamine enemas - Fiber supplementation - Miralax as needed to avoid constipation and straining -encouraged to follow-up with GI 08/11/24 Assessment & Plan (02/04/2024 11:16 AM EDT): -CT scan done 01/18/23 that showed complex cyst upper pole of left kidney 1.4cm, mild constipation, otherwise unremarkable. -Office visit 01/23/23, they recomomended hyoscyamine but they were unsure if insurance would cover it. -Dexilant was not covered, prior authorization placed. Simethicone added 12/2022. -Cause of pain unclear, recommending X-ray of thoracic spine to see if rediculaur musculoskeletal pain is a possible part of Dx. -Dx is wide and could include functional bowel pain, myofacial pain, ridicular pain, hormonal mediated pain, or psycho gentic due to longer term opiate desensitization of spinal cord. -Seen by GI Emi Encarnacion MD 01/25/24 Ddx include mesenteric ischemia, diverticular disease, colitis. Plan: - Mesenteric US - Diagnostic colo - Based on testing if SCAD or SUDD, low threshold to trial mesalamine enemas - Fiber supplementation - Miralax as needed to avoid constipation and straining Assessment & Plan (04/12/2023 9:17 AM EDT): -CT scan done 01/18/23 that showed complex cyst upper pole of left kidney 1.4cm, mild constipation, otherwise unremarkable. -Office visit 01/23/23, they recomomended hyoscyamine but they were unsure if insurance would cover it. -Dexilant was not covered, prior authorization placed. Simethicone added 12/2022. -Cause of pain unclear, recommending X-ray of thoracic spine to see if rediculaur musculoskeletal pain is a possible part of Dx. -Dx is wide and could include functional bowel pain, myofacial pain, ridicular pain, hormonal mediated pain, or psycho gentic due to longer term opiate desensitization of spinal cord. Assessment & Plan (01/26/2023 10:06 AM EDT): -CT scan done 01/18/23 that showed complex cyst upper pole of left kidney 1.4cm, mild constipation, otherwise unremarkable. -Office visit 01/23/23, they recomomended hyoscyamine but they were unsure if insurance would cover it. -Dexilant was not covered, prior authorization placed. Simethicone added 12/2022. -Cause of pain unclear, recommending X-ray of thoracic spine to see if rediculaur musculoskeletal pain is a possible part of Dx. -Dx is wide and could include functional bowel pain, myofacial pain, ridicular pain, hormonal mediated pain, or psycho gentic due to longer term opiate desensitization of spinal cord. Fibromyalgia 10/09/2022 Overview (08/11/2024): -Pt has chronic pain syndrome. Rheumatology work up in 2008 was negative. Lyme titer, KELVIN, rheumatoid factor, and ESR in Jun were unremarkable. Additional labs drawn by [facility] were normal. She has been seen by pain management in the past. Recommend rest, healthy diet, adequate sleep, control depression. -Past explanation of different treatment strategies for fibromyalgia discussed. There is moderate evidence for efficacy for aerobic exercise, cognitive behavioral therapy, patient education, and group therapy. There is also evidence for acupuncture, hypnotherapy, biofeedback and balneotherapy. There is some weaker evidence for chiropractic therapy, massage, electrotherapy and ultrasound. There is no evidence that trigger point injections or opioids are beneficial in fibromyalgia. -Pharmacologic options include muscle relaxants, gabapentin, pregabalin, and duloxetine, but are the lest effective of all strategies. -Pt was counseled on the importance of exercise, adequate sleep, control of depression and or anxiety and stress management - 08/11/24 referred to pain management Assessment & Plan (08/11/2024 10:42 AM EST): -Pt has chronic pain syndrome. Rheumatology work up in 2008 was negative. Lyme titer, KELVIN, rheumatoid factor, and ESR in Jun were unremarkable. Additional labs drawn by [facility] were normal. She has been seen by pain management in the past. Recommend rest, healthy diet, adequate sleep, control depression. -Past explanation of different treatment strategies for fibromyalgia discussed. There is moderate evidence for efficacy for aerobic exercise, cognitive behavioral therapy, patient education, and group therapy. There is also evidence for acupuncture, hypnotherapy, biofeedback and balneotherapy. There is some weaker evidence for chiropractic therapy, massage, electrotherapy and ultrasound. There is no evidence that trigger point injections or opioids are beneficial in fibromyalgia. -Pharmacologic options include muscle relaxants, gabapentin, pregabalin, and duloxetine, but are the lest effective of all strategies. -Pt was counseled on the importance of exercise, adequate sleep, control of depression and or anxiety and stress management - 08/11/24 referred to pain management Assessment & Plan (02/04/2024 11:34 AM EDT): -Pt has chronic pain syndrome. Rheumatology work up in 2008 was negative. Lyme titer, KELVIN, rheumatoid factor, and ESR in Jun were unremarkable. Additional labs drawn by [facility] were normal. She has been seen by pain management in the past. Recommend rest, healthy diet, adequate sleep, control depression. -Past explanation of different treatment strategies for fibromyalgia discussed. There is moderate evidence for efficacy for aerobic exercise, cognitive behavioral therapy, patient education, and group therapy. There is also evidence for acupuncture, hypnotherapy, biofeedback and balneotherapy. There is some weaker evidence for chiropractic therapy, massage, electrotherapy and ultrasound. There is no evidence that trigger point injections or opioids are beneficial in fibromyalgia. -Pharmacologic options include muscle relaxants, gabapentin, pregabalin, and duloxetine, but are the lest effective of all strategies. -Pt was counseled on the importance of exercise, adequate sleep, control of depression and or anxiety and stress management Assessment & Plan (04/12/2023 9:19 AM EDT): -Pt has chronic pain syndrome. Rheumatology work up in 2008 was negative. Lyme titer, KELVIN, rheumatoid factor, and ESR in Jun were unremarkable. Additional labs drawn by [facility] were normal. She has been seen by pain management in the past. Recommend rest, healthy diet, adequate sleep, control depression. -Past explanation of different treatment strategies for fibromyalgia discussed. There is moderate evidence for efficacy for aerobic exercise, cognitive behavioral therapy, patient education, and group therapy. There is also evidence for acupuncture, hypnotherapy, biofeedback and balneotherapy. There is some weaker evidence for chiropractic therapy, massage, electrotherapy and ultrasound. There is no evidence that trigger point injections or opioids are beneficial in fibromyalgia. -Pharmacologic options include muscle relaxants, gabapentin, pregabalin, and duloxetine, but are the lest effective of all strategies. -Pt was counseled on the importance of exercise, adequate sleep, control of depression and or anxiety and stress management Assessment & Plan (01/26/2023 9:26 AM EDT): -Pt has chronic pain syndrome. Rheumatology work up in 2008 was negative. Lyme titer, KELVIN, rheumatoid factor, and ESR in Jun were unremarkable. Additional labs drawn by [facility] were normal. She has been seen by pain management in the past. Recommend rest, healthy diet, adequate sleep, control depression. -Past explanation of different treatment strategies for fibromyalgia discussed. There is moderate evidence for efficacy for aerobic exercise, cognitive behavioral therapy, patient education, and group therapy. There is also evidence for acupuncture, hypnotherapy, biofeedback and balneotherapy. There is some weaker evidence for chiropractic therapy, massage, electrotherapy and ultrasound. There is no evidence that trigger point injections or opioids are beneficial in fibromyalgia. -Pharmacologic options include muscle relaxants, gabapentin, pregabalin, and duloxetine, but are the lest effective of all strategies. -Pt was counseled on the importance of exercise, adequate sleep, control of depression and or anxiety and stress management Assessment & Plan (10/11/2022 10:13 AM EST): -Pt has chronic pain syndrome. Rheumatology work up in 2008 was negative. Lyme titer, KELVIN, rheumatoid factor, and ESR in Jun were unremarkable. Additional labs drawn by [facility] were normal. She has been seen by pain management in the past. Recommend rest, healthy diet, adequate sleep, control depression. -Past explanation of different treatment strategies for fibromyalgia discussed. There is moderate evidence for efficacy for aerobic exercise, cognitive behavioral therapy, patient education, and group therapy. There is also evidence for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
--- OUTSIDE RECORDS SUMMARY | 2024-11-26 18:05 | XMS_ITS | Encounter Summary ---
Author Organization [facility] Address [address] [place] [address] [address] [place] [address] Care Team Providers Care Help Desk Supervisor Name Role Phone Sofia Gonzalez MD Primary Care Provider [phone] Emi Mcclellan Unavailable Encounter Details Date Type Department Care Team (Late st Contact Info) Description 03/29/2023 Orders Only [address] [phone] ProviderDamaso MD Social History Tobacco Use Types Packs/Day Years Used Date Smoking Tobacco: Every Day Cigarettes Smokeless Tobacco: Never Depression Answer Date Recorded Patient Health Questionnaire-2 [...] Description 12/05/2024 9:00 AM EST Office Visit [facility] [address] [place] [address] Miguel Arias, LIBERTAD [address] [place], [place] [phone] 02/02/2025 9:00 AM EDT Office Visit [facility] [address] [place] [address] Sofia Gonzalez MD [address] [place], [place] [phone] documented as of this encounter Procedures Procedure Name Priority Date/Time Associated Diagnosis Comments MAMMOGRAPHY Routine 03/29/2023 MAMMOGRAPHY Routine 03/29/2023 documented in this encounter Results * Mammography (03/29/2023) HM Mammogram Bi-rads 4 Anatomical Region Laterality Modality Other Narrative 03/29/2023 Recommended stereotactic ??biopsy of left breast for calcifications in posterior left upper outer breast us Historical Provider HEALTH MAINTENANCE Edited Result - Final * Mammography (03/29/2023) Anatomical Region Laterality Modality Other us Historical Provider HEALTH MAINTENANCE Final Result documented in this encounter Visit Diagnoses Not on filedocumented in this encounter Care Teams Help Desk Supervisor Relationship Specialty Start Date End Date Sofia Gonzalez MD [address] [place] [phone] PCP - General Family Medicine 10/01/18 Emi Mcclellan [address] [place] [address] 3[address] [place] [address] Gastroenterology 11/26/24 documented as of this encounter
--- OUTSIDE RECORDS SUMMARY | 2024-11-26 18:05 | XMS_ITS | Encounter Summary ---
Author Organization [employer] Address [address] [facility] 7t [place] [address] Care Team Providers Care Room Service Waiter Name Role Phone Sofia Gonzalez MD Primary Care Provider +1- [phone] Emi Mcclellan Unavailable Encounter Details Date Type Department Care Team (Late st Contact Info) Description 06/14/2023 Abstract [facility] MEDICINE [address] [place] [address] Sofia Gonzalez MD [address] [place] [address] Social History Tobacco Use Types Packs/Day Years [...] 12/05/2024 9:00 AM EST Office Visit [facility] ADULT DENTAL [address] [place] [address] Miguel Arias DMD [address] [place] [address] 02/02/2025 9:00 AM EDT Office Visit [facility] MEDICINE [address] [place] [address] Sofia Gonzalez MD [address] [place] [address] documented as of this encounter Visit Diagnoses Not on filedocumented in this encounter Care Teams Room Service Waiter Relationship Specialty Start Date End Date Sofia Gonzalez MD [address] [place], [place] [phone] PCP - General Family Medicine 10/01/18 Emi Mcclellan [address] [place] [address] Drive 3rd [place] [address] Gastroenterology 11/26/24 documented as of this encounter
--- OUTSIDE RECORDS SUMMARY | 2024-11-26 18:05 | XMS_ITS | Encounter Summary ---
Author Organization [employer] Address [address] [facility] [address] 7t [place] [address] Care Team Providers Care Program Management Professional Name Role Phone Sofia Gonzalez MD Primary Care Provider +1- [phone] Reason for Visit * Reason Onset Date Comments May recalls 11/18/2024 Encounter Details Date Type Department Care Team ([facility] st Contact Info) Description 11/18/2024 Telephone [facility] MEDICINE [address] [place], [place] [phone] Sofia Gonzalez MD [address] [place], [place] [phone] May recalls Social History Tobacco Use Types Packs/Day Years Used Date Smoking Tobacco: Every Day Cigarettes Smokeless Tobacco: Never Alcohol Use Standard Drinks/Week Comments Defer 0 [...] AM EDT documented as of this encounter Miscellaneous Notes * Telephone Encounter - Jessika Ordaz [place] - 11/18/2024 2:00 PM EST ..Telephone call to patient to schedule a recall appointment. No answer, unable to leave voicemail (not set up).. Recall letter sent. Visit type: Follow up Appointment notes: Chronic conditions Month due: May With: Carlos Please schedule appointment above if patient returns call documented in this encounter Plan of Treatment Upcoming Encounters Date Type Department Care Team (Late st Contact Info) Description 12/05/2024 9:00 AM EST Office Visit [facility] ADULT DENTAL [address] [place] [address] Miguel Arias DMD [address] [place] [address] 02/02/2025 9:00 AM EDT Office Visit [facility] MEDICINE [address] [place] [address] Sofia Gonzalez MD [address] [place] [address] documented as of this encounter Goals Goal Patient Goal Type Associated Problems Recent Progress Patient-Stated? Author Quit using tobacco (cigarettes, smokeless, etc) Tobacco Use No Piers-Rodriguez , Aria, PharmD documented as of this encounter Visit Diagnoses Not on filedocumented in this encounter Additional Health Concerns Assessment Noted Time PHQ-9 Depression Total Score: 3 02/04/20 24 10:40 AM EDT documented as of this encounter Care Teams Program Management Professional Relationship Specialty Start Date End Date Sofia Gonzalez MD [address] [place] [address] PCP - General Family Medicine 10/01/18 documented as of this encounter
--- OUTSIDE RECORDS SUMMARY | 2024-11-26 18:05 | XMS_ITS | Encounter Summary ---
Author Organization [employer] Address [address] [facility] [address] 7t [place] [address] Care Team Providers Care Welfare Adviser Name Role Phone Sofia Gonzlaez MD Primary Care Provider +1- [phone] [employer] Unavailable Reason for Referral * Imaging (Routine) - Closed Specialty Diagnoses / Procedures Referred By Denisse bess Referred To Contact Radiology Diagnoses Abnormal mammogram Procedures BI Sterotactic Guided Breast Localization and Biopsy Left Sofia Gonzalez MD 230 [place] [address] Phone: tel: fax: [facility] fax: Referral ID Status Reason Start Date Expiration Date Visits Re quested Visits Authorized [id number] Closed 04/02/2023 04/01/2024 1 1 Encounter Details Date Type Department Care Team (Late st Contact Info) Description 04/02/2023 Orders Only [facility] MEDICINE [address] [place], [place] [phone] Sofia Gonzalez MD [address] [place], [place] [phone] Abnormal mammogram (Primary Dx) Social History Tobacco Use Types [...] not to disclose 2021 10:18 AM EDT COVID-19 Exposure Response Date Recorded In the last 10 days, have ed blue been in contact with someone who was confirmed or suspected to have Coronavirus/COVID-19? No / Unsure 04/02/2023 8:09 AM EDT documented as of this encounter Plan of Treatment Upcoming Encounters Date Type Department Care Team (Late st Contact Info) Description 12/05/2024 9:00 AM EST Office Visit [facility] ADULT DENTAL [address] [place] [address] Miguel Arias DMD [address] [place] [address] 02/02/2025 9:00 AM EDT Office Visit [facility] MEDICINE [address] [place] [address] Sofia Gonzalez MD 230 [place] [address] Scheduled Orders Name Type Priority Associated Diagnoses Orde r Schedule BI Sterotactic Guided Breast Localization and Biopsy Left Imaging Routine Abnormal mammogram Expected: 04/02/2023, Expires: 06/03/2024 documented as of this encounter Visit Diagnoses Diagnosis Abnormal mammogram- Primary Abnormal mammogram, unspecified documented in this encounter Care Teams Welfare Adviser Relationship Specialty Start Date End Date Sofia Gonzalez MD [address] [place] [address] PCP - General Family Medicine 10/01/18 Emi Mcclellan [address] 3rd [place] [address] Gastroenterology 11/26/24 documented as of this encounter
--- OUTSIDE RECORDS SUMMARY | 2024-11-26 18:05 | XMS_ITS | Encounter Summary ---
Author Organization [employer] [facility] Address 75 [facility] 7t [place] [address] Care Team Providers Care Cotton Breeder Name Role Phone Sofia Gonzalez MD Primary Care Provider +1- [phone] Emi Mcclellan Unavailable Encounter Details Date Type Department Care Team (Late Contact Info) Description 10/09/2022 Abstract [facility] [address] [place] [address] Sofia Gonzalez MD 230 [place], [place] [phone] Social History Tobacco Use Types Packs/Day Years [...] Recorded In the last 10 days, have yo u been in contact with someone who was confirmed or suspected to have Coronavirus/COVID-19? No / Unsure 10/11/2022 9:27 AM EST documented as of this encounter Plan of Treatment Upcoming Encounters Date Type Department Care Team (Late Contact Info) Description 12/05/2024 9:00 AM EST Office Visit [facility] ADULT DENTAL 230 [place], [place] [phone] Miguel Arias DMD [address] [place], [place] [phone] 02/02/2025 9:00 AM EDT Office Visit [facility] [address] [place] [address] [phone] Sofia Gonzalez MD [address] [place] [address] [phone] documented as of this encounter Visit Diagnoses Not on filedocumented in this encounter Care Teams Cotton Breeder Relationship Specialty Start Date End Date Sofia Gonzalez MD [address] [place] [address] PCP - General Family Medicine 10/01/18 Emi Mcclellan [address] [place] [address] 3rd [place] [address] Gastroenterology 11/26/24 documented as of this encounter
--- OUTSIDE RECORDS SUMMARY | 2024-11-26 18:05 | XMS_ITS | Encounter Summary ---
Author Organization [employer] [facility] Address 75 [facility] 7t [place] [address] Care Team Providers Care Employee Communications Manager Name Role Phone Sofia Gonzalez MD Primary Care Provider +1- [phone] Emi Mcclellan Unavailable Reason for Visit * Reason Comments Med Refill Encounter Details Date Type Department Care Team (Late st Contact Info) Description 04/02/[address] [facility] MEDICINE [address] [place] [address] Sofia Gonzalez MD [address] [place] [address] Social History Tobacco Use Types Packs/Day Years [...] 9:00 AM EST Office Visit [facility] ADULT DENTAL [address] [place] [address] Miguel Arias DMD [address] [place], [place] [phone] 02/02/2025 9:00 AM EDT Office Visit [facility] MEDICINE 230 [place], [place] [phone] Sofia Gonzalez MD 230 [place], [place] [phone] documented as of this encounter Visit Diagnoses Not on filedocumented in this encounter Care Teams Employee Communications Manager Relationship Specialty Start Date End Date Sofia Gonzalez MD 230 [place], [place] [phone] PCP - General Family Medicine 10/01/18 Emi Mcclellan [address] [place] [address] 3rd [place] [address] Gastroenterology 11/26/24 documented as of this encounter
--- OUTSIDE RECORDS SUMMARY | 2024-11-26 18:05 | XMS_ITS | Encounter Summary ---
Author Organization [employer] [facility] Address 75 [facility] 7t [place] [address] Care Team Providers Care Substation Operator Chief Name Role Phone Sofia Gonzalez MD Primary Care Provider +1- [phone] Emi Mcclellan Unavailable Encounter Details Date Type Department Care Team (Latest Contact Info) Description 03/14/2019 Abstract [facility] CONVERSIONS Dental, Provider, DDS Social History [...] Description 12/05/2024 9:00 AM EST Office Visit [facility] ADULT DENTAL [address] [place] [address] Miguel Arias DMD [address] [place] [address] 02/02/2025 9:00 AM EDT Office Visit [facility] MEDICINE [address] [place] [address] oSfia Gonzalez MD 230 [place] [address] documented as of this encounter Visit Diagnoses Not on filedocumented in this encounter Care Teams Substation Operator Chief Relationship Specialty Start Date End Date Sofia Gonzalez MD [address] [place] [address] PCP - General Family Medicine 10/01/18 Emi Mcclellan [address] [place] [address] 3rd [place] [address] Gastroenterology 11/26/24 documented as of this encounter
--- OUTSIDE RECORDS SUMMARY | 2024-11-26 18:05 | XMS_ITS | Encounter Summary ---
Author Organization [employer] [facility] Address 75 [facility] 7t [place] [address] Care Team Providers Care Application Technician Name Role Phone Sofia Gonzalez MD Primary Care Provider +1- [phone] Emi Mcclellan Unavailable Reason for Visit * Reason Comments Med Refill Encounter Details Date Type Department Care Team (Late st Contact Info) Description 12/23/2022 Refill [facility] MEDICINE [address] [place] [address] Sofia Gonzaelz MD [address] [place] [address] Social History Tobacco Use Types Packs/Day Years [...] suspected to have Coronavirus/COVID-19? No / Unsure 12/19/2022 8:46 AM EDT documented as of this encounter Plan of Treatment Upcoming Encounters Date Type Department Care Team (Late st Contact Info) Description 12/05/2024 9:00 AM EST Office Visit [facility] ADULT DENTAL [address] [place] [address] Miguel Arias DMD [address] [place], [place] [phone] 02/02/2025 9:00 AM EDT Office Visit [facility] MEDICINE [address] [place], [place] [phone] Sofia Gonzalez MD [address] [place], [place] [phone] documented as of this encounter Visit Diagnoses Not on filedocumented in this encounter Care Teams Application Technician Relationship Specialty Start Date End Date Sofia Gonzalez MD [address] [place], [place] [phone] PCP - General Family Medicine 10/01/18 Emi Mcclellan [address] [place] [address] 3rd [place] [address] Gastroenterology 11/26/24 documented as of this encounter
== END 2024-11-26 15:35 | disposition home or self-care (01) ==
PROVIDERS: PCP Family Medicine; Visit Provider Internal Medicine
DX: R11.2 Nausea with vomiting, unspecified (principal); R10.9 Unspecified abdominal pain; K59.00 Constipation, unspecified; R14.0 Abdominal distension (gaseous)
CPT/HCPCS: 99214

== ENCOUNTER → 2024-11-26 14:40 | Outpatient (BNVA) | payer MEDICARE, MEDICAID, SELFPAY | PROVIDERS: PCP Family Medicine; Visit Provider Internal Medicine | DX: R10.9 Unspecified abdominal pain (principal); R11.2 Nausea with vomiting, unspecified; K59.00 Constipation, unspecified; R14.0 Abdominal distension (gaseous) | CPT/HCPCS: 99212 ==

== ENCOUNTER 2025-01-26 10:43 | Outpatient (AMB) | payer MEDICARE, MEDICAID, SELFPAY ==
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
[2025-01-26 10:49] VITALS: BP 109/55; PULSE 62; BMI 27.7
--- OUTSIDE RECORDS SUMMARY | 2025-01-26 12:44 | XMS_ITS | Encounter Summary ---
Author Organization [employer] [facility] Address 75 [facility] 7t [place] [address] Care Team Providers Care Carbide Grinder Name Role Phone Sofia Gonzalez MD Primary Care Provider +1- [phone] Emi Mcclellan Unavailable Encounter Details Date Type Department Care Team (Late st Contact Info) Description 06/14/2023 Abstract [facility] MEDICINE [address] [place] [phone] Sofia Gonzalez MD [address] [place] [address] [phone] Social History Tobacco Use Types Packs/Day Years [...] Care Team (Late st Contact Info) Description 02/02/2025 9:00 AM EDT Office Visit [facility] MEDICINE [address] [place] [address] [phone] Sofia Gonzalez MD [address] [place] [address] [phone] documented as of this encounter Visit Diagnoses Not on filedocumented in this encounter Care Teams Carbide Grinder Relationship Specialty Start Date End Date Sofia Gonzalez MD [address] [place] [address] PCP - General Family Medicine 10/01/18 Emi Mcclellan [address] [place] [address] 3rd [place] [address] Gastroenterology 11/26/24 Giovani Yu MD [address] [facility] [place] [address]- Endocrinology 12/02/24 documented as of this encounter
--- OUTSIDE RECORDS SUMMARY | 2025-01-26 12:44 | XMS_ITS | Encounter Summary ---
Author Organization [employer] [facility] Address 75 [facility] 7t [place] [address] Care Team Providers Care Client Experience Manager Name Role Phone Sofia Gonzalez MD Primary Care Provider +1- [phone] Emi Mcclellan Unavailable Encounter Details Date Type Department Care Team (Late st Contact Info) Description 03/29/2023 Orders Only [facility] MEDICINE [address] [place] [phone] ProviderDamaso MD Social History Tobacco Use Types [...] Description 02/02/2025 9:00 AM EDT Office Visit [facility] MEDICINE [address] [place] [address] Sofia Gonzalez MD [address] [place], [place] [phone] documented as of this encounter Procedures Procedure Name Priority Date/Time Associated Diagnosis Comments MAMMOGRAPHY Routine 03/29/2023 MAMMOGRAPHY Routine 03/29/2023 documented in this encounter Results * Mammography (03/29/2023) Mammogram Bi-rads 4 Anatomical Region Laterality Modality Other Narrative 03/29/2023 Recommended stereotactic ??biopsy of left breast for calcifications in posterior left upper outer breast Historical Provider HEALTH MAINTENANCE Edited Result - Final * Mammography (03/29/2023) Anatomical Region Laterality Modality Other Historical Provider HEALTH MAINTENANCE Final Result documented in this encounter Visit Diagnoses Not on filedocumented in this encounter Care Teams Client Experience Manager Relationship Specialty Start Date End Date Sofia Gonzalez MD [address] [place] [address] PCP - General Family Medicine 10/01/18 Emi Mcclellan [address] [place] [address] 3rd [place] [address] Gastroenterology 11/26/24 Giovani Yu MD [address] [facility] [place] [address]- Endocrinology 12/02/24 documented as of this encounter
--- OUTSIDE RECORDS SUMMARY | 2025-01-26 12:44 | XMS_ITS | Encounter Summary ---
Author Organization [employer] [facility] Address 75 [facility] 7t [place] [address] Care Team Providers Care Public Information Specialist Name Role Phone Sofia Gonzalez MD Primary Care Provider +1- [phone] Emi Mcclellan Unavailable Encounter Details Date Type Department Care Team ([facility] Contact Info) Description 10/09/2022 Abstract [facility] MEDICINE [address] [place] [address] [phone] Sofia Gonzalez MD [address] [place], [place] [phone] Social History Tobacco Use Types Packs/Day Years [...] Upcoming Encounters Date Type Department Care Team ([facility] Contact Info) Description 02/02/2025 9:00 AM EDT Office Visit [facility] MEDICINE [address] [place] [address] [phone] Sofia Gonzalez MD [address] [place] [address] documented as of this encounter Visit Diagnoses Not on filedocumented in this encounter Care Teams Public Information Specialist Relationship Specialty Start Date End Date Sofia Gonzalez MD [address] [place] [address] [place] [address] PCP - General Family Medicine 10/01/18 Emi Mcclellan [address] [place] [address] 3rd [place] [address] Gastroenterology 11/26/24 Giovani Yu MD [address] [facility] Endocrinology [place], [place] [phone]- Endocrinology 12/02/24 documented as of this encounter
--- OUTSIDE RECORDS SUMMARY | 2025-01-26 12:44 | XMS_ITS | Encounter Summary ---
Author Organization [employer] [facility] Address [address] [facility] 7t [place] [address] Care Team Providers Care Reporting Consultant Name Role Phone Sofia Gonzalez MD Primary Care Provider +1- [phone] Emi Mcclellan Unavailable Encounter Details Date Type Department Care Team (Latest Contact Info) Description 03/14/2019 Abstract [facility] CONVERSIONS Dental, Provider, DDS Social History [...] 9:00 AM EDT Office Visit [facility] MEDICINE [address] [place] [address] Sofia Gonzalez MD [address] [place] [address] documented as of this encounter Visit Diagnoses Not on filedocumented in this encounter Care Teams Reporting Consultant Relationship Specialty Start Date End Date Sofia Gonzalez MD 230 [place] [address] PCP - General Family Medicine 10/01/18 Emi Mcclellan [address] [place] [address] [address] [place] [address] Gastroenterology 11/26/24 Giovani Yu MD [address] [facility] [place] [address]- Endocrinology 12/02/24 documented as of this encounter
--- OUTSIDE RECORDS SUMMARY | 2025-01-26 12:44 | XMS_ITS | Encounter Summary ---
Author Organization [employer] Address [address] 7[address] [place] [address] Care Team Providers Care Putter In Name Role Phone Sofia Gonzalez MD Primary Care Provider +1- [phone] EleuterioEmi Unavailable Reason for Referral * Imaging (Routine) - Closed Specialty Diagnoses / Procedures Referred By Denisse bess Referred To Contact Radiology Diagnoses Abnormal mammogram Procedures BI Sterotactic Guided Breast Localization and Biopsy Left Sofia Gonzalez MD [address] [place] [address] Phone: tel: fax: [facility] fax: Referral ID Status Reason Start Date Expiration Date Visits Re quested Visits Authorized [id number] Closed 04/02/2023 04/01/2024 1 1 Encounter Details Date Type Department Care Team (Late st Contact Info) Description 04/02/2023 Orders Only [facility] [address] [place], [place] [phone] oSfia Gonzalez MD [address] [place], [place] [phone] Abnormal mammogram (Primary Dx) Social History Tobacco [...] In the last 10 days, have ed u been in contact with someone who was confirmed or suspected to have Coronavirus/COVID-19? No / Unsure 04/02/2023 8:09 AM EDT documented as of this encounter Plan of Treatment Upcoming Encounters Date Type Department Care Team (Late st Contact Info) Description 02/02/2025 9:00 AM EDT Office Visit [facility] [address] [place] [phone] Sofia Gonzalez MD [address] [place] [address] Scheduled Orders Name Type Priority Associated Diagnoses Orde r Schedule BI Sterotactic Guided Breast Localization and Biopsy Left Imaging Routine Abnormal mammogram Expected: 04/02/2023, Expires: 06/03/2024 documented as of this encounter Visit Diagnoses Diagnosis Abnormal mammogram- Primary Abnormal mammogram, unspecified documented in this encounter Care Teams Putter In Relationship Specialty Start Date End Date Sofia Gonzalez MD [address] [place] [phone] PCP - General Family Medicine 10/01/18 Emi Mcclellan [address] [place] [address] Drive 3rd [place] [address] Gastroenterology 11/26/24 Giovani Yu MD [address] [facility] [place] [address]- Endocrinology 12/02/24 documented as of this encounter
--- OUTSIDE RECORDS SUMMARY | 2025-01-26 12:44 | XMS_ITS | Encounter Summary ---
Author Organization [employer] [facility] Address [address] [facility] 7t [place] [address] Care Team Providers Care Curriculum Coach Name Role Phone Sofia Gonzalez MD Primary Care Provider +1- [phone] Emi Mcclellan Unavailable Reason for Visit * Reason Comments Med Refill Encounter Details Date Type Department Care Team (Late st Contact Info) Description 12/23/2022 Refill [facility] MEDICINE [address] [place] [address] Sofia Gonzalez MD [address] [place] [address] Social History Tobacco Use Types Packs/Day Years [...] Description 02/02/2025 9:00 AM EDT Office Visit [facility] MEDICINE [address] [place] [address] [phone] Sofia Gonzalez MD [address] [place] [address] documented as of this encounter Visit Diagnoses Not on filedocumented in this encounter Care Teams Curriculum Coach Relationship Specialty Start Date End Date Sofia Gonzalez MD [address] [place] [address] PCP - General Family Medicine 10/01/18 Emi Mcclellan [address] [place] [address] 3rd [place] [address] Gastroenterology 11/26/24 Giovani Yu MD [address] [facility] Endocrinology [place], [place] [phone]- Endocrinology 12/02/24 documented as of this encounter
--- OUTSIDE RECORDS SUMMARY | 2025-01-26 12:44 | XMS_ITS | Encounter Summary ---
Author Organization [employer] [facility] Address [address] [facility] 7t [place] [address] Care Team Providers Care Book Jacket Cover Machine Operator Name Role Phone oSfia Gonzalez MD Primary Care Provider +1- [phone] Emi Mcclellan Unavailable Encounter Details Date Type Department Care Team (Latest Contact Info) Description 10/19/2021 Abstract [facility] CONVERSIONS Dental, Provider, DDS Social History Tobacco [...] Description 02/02/2025 9:00 AM EDT Office Visit [facility] MEDICINE [address] [place] [address] Sofia Gonzalez MD [address] [place] [address] documented as of this encounter Visit Diagnoses Not on filedocumented in this encounter Care Teams Book Jacket Cover Machine Operator Relationship Specialty Start Date End Date Sofia Gonzalez MD [address] [place] [address] PCP - General Family Medicine 10/01/18 Emi Mcclellan [address] [place] [address] Drive 3rd [place] [address] Gastroenterology 11/26/24 Giovani Yu MD [address] [facility] [place] [address]- Endocrinology 12/02/24 documented as of this encounter
--- OUTSIDE RECORDS SUMMARY | 2025-01-26 12:44 | XMS_ITS | Encounter Summary ---
Author Organization [employer] [facility] Address [address] [facility] 7t [place] [address] Care Team Providers Care Ion Exchange Operator Name Role Phone Sofia Gonzalez MD Primary Care Provider +1- [phone] Emi Mcclellan Unavailable Reason for Visit * Reason Comments Med Refill Encounter Details Date Type Department Care Team (Late st Contact Info) Description 04/02/2023 Refill [facility] MEDICINE 230 [place] [address] Sofia Gonzalez MD [address] [place] [address] Social History Tobacco Use Types Packs/Day Years [...] Description 02/02/2025 9:00 AM EDT Office Visit [facility] [address] [place] [address] [phone] Sofia Gonzalez MD [address] [place] [address] documented as of this encounter Visit Diagnoses Not on filedocumented in this encounter Care Teams Ion Exchange Operator Relationship Specialty Start Date End Date Sofia Gonzalez MD [address] [place] [address] PCP - General Family Medicine 10/01/18 Emi Mcclellan [address] [place] [address] 3rd [place] [address] Gastroenterology 11/26/24 Giovani Yu MD [address] [facility] Endocrinology [phone]- Endocrinology 12/02/24 documented as of this encounter
--- OUTSIDE RECORDS SUMMARY | 2025-01-26 12:44 | XMS_ITS | Clinical Summary ---
Author Organization [employer] Address [address] [facility] 7t [place] [address] Care Team Providers Care Van Driver Helper Name Role Phone Sofia Gonzalez MD Primary Care Provider +1- [phone] Emi Mcclellan Unavailable Allergies Active Allergy Reactions Criticality Noted Date Comments Morphine 08/02/2018 Medications * This document contains information received from the source organization and may not represent a complete record from that organization. methadone (Dolophine) 10 MG tablet 60 mg tabs via [facility] Methadone program Active hydrocortisone (Cortef) 5 MG tablet TAKE 3 TABS IN THE MORNING AND ONE IN THE AFTERNOON 06/16/20 22 Active Calcium Carb-Cholecalcife rol 600-10 MG-MCG tablet take 1 tab po bid 07/05/20 18 Active diphenhydrAMINE (BENADryl) 25 MG capsuleIndication s:Itchy scalp Take 1 capsule (25 mg) by mouth every 6 (six) hours if needed for itching. 30 capsule 09/11/20 22 Active Fluocinolone Acetonide Scalp 0.01 % oilIndications:It florian scalp APPLY 30 ML TOPICALLY IF NEEDED EACH DAY (ITCHY SCALP). MAY SUBSTITUTE OIL IF SHAMPOO IS NOT AVAILABLE OR IS NOT COVERED BY INSURANCE. 236.56 mL 09/14/20 22 Active D3-1000 25 MCG (1000 UT) capsule TOME 1 C PSULA POR V A ORAL DAILY 30 DAYS 03/05/20 22 Active Dexilant [address] capsule Take 1 capsule by mouth in the morning. 04/17/20 22 Active famotidine (Pepcid) 40 MG tablet TAKE 1 TABLET BY MOUITH AT BEDTIME 07/02/20 22 Active lubiprostone (Amitiza) 24 MCG capsule TOME 1 C PSULA POR V A ORAL DOS VECES AL D A *DISCONTINUE 8 MCG 10/14/19 22 Active norgestimate-ethi nyl estradiol (Ortho-Cyclen) 0.25-35 MG-MCG tablet TOME ESTRADA TABLETA TODOS LOS MATHIS 02/04/20 19 Active nortriptyline (Pamelor) 10 MG capsule 01/04/20 23 Active estradiol (Estrace) 0.1 MG/GM vaginal cream APPLY A SMALL AMOUNT TO AFFECTED AREA AND INSERT 1/2 GRAM VAGINALLY 2 TIMES PER WEEK AT BEDTIME 03/01/20 23 Active lidocaine (Lidoderm) 5 % patch Apply 1 patch topically in the morning. Remove & discard patch within 12 hours or as directed by MD. 15 patch 3 04/12/20 23 Active albuterol (ProAir HFA) 108 (90 Base) MCG/ACT inhalerIndication s:Mild intermittent asthma with exacerbation 2 puffs every 4 hours as needed 18 g 1 06/25/20 23 Active fluticasone (Flovent) 220 MCG/ACT inhalerIndication s:Mild intermittent asthma with exacerbation Inhale 1 puff in the morning and at bedtime. Rinse mouth with water after use to reduce aftertaste and incidence of candidiasis. Do not swallow. 12 g 11 06/27/20 23 Active Bisacodyl EC 5 MG EC tabletIndications :Irritable bowel syndrome, unspecified type TOME DOS TABLETAS POR V A ORAL AL ACOSTARSE POR 2 D *OTC* 01/23/20 24 Active cyclobenzaprine (Flexeril) 10 MG tabletIndications :Total body pain TAKE 1 TABLET BY MOUTH 3 TIMES A DAY NEEDED FOR MUSCLE SPASM 09/22/20 23 Active Hydrocortisone Sod Suc, PF, (Solu-CORTEF) 100 MG reconstituted solutionIndicatio ns:Secondary adrenal insufficiency (CMS/HCC) 100 mg. 09/01/20 21 Active GaviLyte-G 236 g solutionIndicatio ns:Irritable bowel syndrome, unspecified type PLEASE SEE ATTACHED FOR DETAILED DIRECTIONS 11/27/19 24 Active pravastatin (Pravachol) 20 MG tabletIndications :Dyslipidemia TOME ESTRADA TABLETA TODO LOS MATHIS AL ACOSTARSE 90 tablet 3 02/04/20 24 Active loratadine (Claritin) 10 MG tabletIndications :Seasonal allergies TAKE 1 TABLET BY MOUTH EVERY DAY FOR ALLERGIES 90 tablet 07/29/20 24 Active methadone (Dolophine) 0.1 mg/mL solutionIndicatio ns:Uncomplicated opioid dependence (CMS/HCC) Take 63 mg by mouth. 01/21/20 11 Active mirtazapine (Remeron) 7.5 MG tabletIndications :Mood disorder (CMS/HCC) TOME ESTRADA TABLETA POR V A ORAL AL ACOSTARSE 11/26/19 25 Active Prucalopride Succinate 1 MG tabletIndications :Irritable bowel syndrome, unspecified type TOME ESTRADA TABLETA POR V A ORAL TODOS LOS D 11/27/19 25 Active levothyroxine (Synthroid, Levoxyl) 112 MCG tabletIndications :Secondary hypothyroidism Take by mouth before breakfast. Active desmopressin (DDAVP) 0.2 MG tabletIndications :Panhypopituitari sm (CMS/HCC) Take by mouth at bedtime. Active fluticasone (Flonase) 50 MCG/ACT nasal spray USE 2 SPRAYS IN EACH NOSTRIL ONCE PER DAY. 48 mL 01/21/20 25 Active fluticasone (Flonase) 50 MCG/ACT nasal spray ADMINISTER 2 SPRAYS INTO EACH NOSTRIL ONCE PER DAY. 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 Followed by endo. Severe dental caries 09/30/2024 Non-restorable tooth 09/30/2024 [...] of recurrent major depressive d isorder 08/11/2024 Family history of polyps in the colon 01/28/2024 Right shoulder tendonitis 01/28/2024 Colon cancer screening 11/27/2023 Overview (08/11/2024): [...] Lainez ANP-C 11/20/2023 and colonoscopy ordered - Weight loss 06/27/2023 Overview (08/11/2024): -Being followed [...] heavy tobacco Hx. -GI work up unremarkable. Mild intermittent asthma with exacerbation 06/25 Overview [...] posterior left upper breast on 05/09/23 at [facility]. Other specified health status 04/12/2023 Overview (08/11/2024): -next physical exam due after 08/11/2025. -eye care facilitated by [facility] last done 11/06/2022. -dental home is [facility] last done 04/02/2023. -health care proxy filed 02/04/2024 Assessment & Plan (08/11/2024 11:00 AM EST): -next physical exam due after 08/11/2025. -eye care facilitated by [facility] last done 11/06/2022. -dental home is [facility] last done 04/02/2023. -health care proxy filed 02/04/2024 Assessment & Plan (02/04/2024 11:13 AM EDT): -next physical exam due after 2024. -eye care facilitated by [facility] last done 11/06/2022. -dental home is [facility] last done 04/02/2023. -health care proxy filed 02/04/2024 Assessment & Plan (04/12/2023 9:16 AM EDT): -next physical exam due after 04/12/2024 -eye care facilitated by [facility] last done 11/06/2022 -dental home is [facility] last done 04/02/2023. Abdominal bloating 01/26/2023 [...] desensitization of spinal cord. -Seen by GI Dr. Emi Mcclellan,Emi CRUZ 01/25/24 Ddx include mesenteric ischemia, diverticular disease, [...] incapacitated or unable to speak for herself. -Nurse Informatics Educator has prescribed a solucortef emergency kit for [...] incapacitated or unable to speak for herself. -Nurse Informatics Educator has prescribed a solucortef emergency kit for [...] incapacitated or unable to speak for herself. -Nurse Informatics Educator has prescribed a solucortef emergency kit for [...] incapacitated or unable to speak for herself. -Nurse Informatics Educator has prescribed a solucortef emergency kit for [...] incapacitated or unable to speak for herself. -Nurse Informatics Educator has prescribed a solucortef emergency kit for [...] and 2 tabs every evening prescribed by field sales engineer. - Ordered Labs 08/11/24 Assessment & Plan (08/11/2024 10:59 AM EST): -Patient with a history of DI with no intact thirst mechanism. -Continue with DDAVP 0.2 mg one tab every morning, and 2 tabs every evening prescribed by field sales engineer. - Ordered Labs 08/11/24 Assessment & Plan (02/04/2024 11:16 AM EDT): -Patient with a history of DI with no intact thirst mechanism. -Continue with DDAVP 0.2 mg one tab every morning, and 2 tabs every evening prescribed by field sales engineer. Assessment & Plan (04/12/2023 9:19 AM EDT): -Patient with a history of DI with no intact thirst mechanism. -Continue with DDAVP 0.2 mg one tab every morning, and 2 tabs every evening prescribed by field sales engineer. Assessment & Plan (01/26/2023 9:26 AM EDT): -Patient with a history of DI with no intact thirst mechanism. -Continue with DDAVP 0.2 mg one tab every morning, and 2 tabs every evening prescribed by field sales engineer. Assessment & Plan (10/09/2022 9:30 AM EST): -Patient with a history of DI with no intact thirst mechanism. -Continue with DDAVP 0.2 mg one tab every morning, and 2 tabs every evening prescribed by field sales engineer. Dyslipidemia 05/27/2012 Overview (08/11/2024): Lab Results Component [...] 20 GERD (gastroesophageal reflux disease) 2 Overview (01/26/2025): EGD (Dr Lezama) 03/2022: Esophageal dysmotility. Bile [...] as needed to avoid constipation and straining -note from Dr. Mcclellan 01/26/25 reviewed Assessment & Plan (08/11/2024 11:03 AM EST): [...] Encouraged smoking cessation resources such as pharmacomtherapy, [facility] smoking cessation group, and 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 [address] [place] [phone] Sofia Gonzalez MD 12/30/2024 11:00 AM EDT Office Visit [facility] [address] [place] [phone] Name, MD Pravin COVID (Primary Dx); Cough in adult patient; Secondary adrenal insufficiency (CMS/HCC) 12/12/2024 Population [facility] Risk Score [facility] (C3) Department [address] [place] [id number] Provider, Population Health Generic 12/02/[address] [facility] [address] [place] [address] Sofia Gonzalez MD Uncomplicated opioid dependence (CMS/HCC) (Primary Dx); Mood disorder (CMS/HCC); Irritable bowel syndrome, unspecified type; Acquired hypothyroidism; Secondary adrenal insufficiency (CMS/HCC); Secondary hypothyroidism; Premature menopause; Panhypopituitarism (CMS/HCC) 11/18/[address] [facility] [address] [place] [phone] Sofia Gonzalez MD January recalls from Last 3 Months Immunizations Name Administration [...] Sign Reading Time Taken Comments Blood Pressure 117/72 12/30/2024 10:57 AM EDT Pulse 78 12/30/2024 10:57 AM EDT Temperature 37.3 ??C (99.2 ??F) 12/30/2024 10:57 AM E DT Respiratory Rate 18 12/30/2024 10:57 AM EDT Oxygen Saturation 97% 12/30/2024 10:57 AM EDT Inhaled Oxygen Concentration - - Weight 73.5 kg (162 lb) 12/30/2024 10:57 AM EDT Height 160 cm (5' 3 ) 08/11/2024 9:22 AM EST Body Mass Index 28.7 08/11/2024 9:22 AM EST Plan of Treatment Upcoming Encounters Date Type Department Care Team (Late st Contact Info) Description 02/02/2025 9:00 AM EDT Office Visit [facility] [address] [place] [phone] Sofia Gonzalez MD [address] [place] [address] Health Maintenance Due Date Last Done Comments [...] 12/21/2017 Hepatitis A Vaccines Completed 02/04/2024, 01/27/20 23 Hepatitis B Vaccines Completed 02/04/2024, 04/12/2023, 01/26/2023 [...] (cigarettes, smokeless, etc) Tobacco Use No Aria Triplett PharmD Procedures Procedure Name Priority Date/Time Associated Diagnosis Comments POCT INFLUENZA B (ID NOW RAPID MOLECULAR) Routine 12/30/2024 11:05 AM EDT Cough in adult patient POCT INFLUENZA A (ID NOW RAPID MOLECULAR) Routine 12/30/2024 11:05 AM EDT Cough in adult patient POCT RAPID COVID ANTIGEN Routine 12/30/2024 11:02 AM EDT Cough in adult patient LIPID PANEL, STANDARD Routine 10/16/2024 9:10 AM EST Dyslipidemia PANORAMIC RADIOGRAPHIC IMAGE Routine 09/30/2024 12:30 PM EST HM MAMMOGRAPHY Routine 05/28/2024 HIV ANTIBODY/ANTIGEN ([place] DPH) Routine 07/04/2023 9:18 AM EDT BITEWING - SINGLE RADIOGRAPHIC IMAGE Routine 04/02/2023 8:30 AM EDT HEPATITIS C ANTIBODY (EXTERNAL RESULTS ONLY) Routine 03/21/2022 9:21 AM EDT HM COLONOSCOPY Routine 05/31/2017 9:38 AM EDT PAP SMEAR Routine 06/14/2009 12:00 AM EDT from Last 3 Months or Most Recently Relevant to Health Maintenance Results * Influenza B (ID NOW Rapid Molecular) (12/30/2024 11:05 AM EDT) Influenza B Negative Negative, Indeterminate [facility] Swab 12/30/2024 11:0 5 AM EDT us Pravin Name POINT OF CARE TEST ENTER/EDIT OR DERABLES Final Result [facility] [address] [place] [address] [phone] * Influenza A (ID NOW Rapid Molecular) (12/30/2024 11:05 AM EDT) Pathologist [facility] Influenza A Negative Negative, Indeterminate [facility] Swab 12/30/2024 11:0 5 AM EDT Pravin Name POINT OF CARE TEST ENTER/EDIT OR DERABLES Final Result [facility] [address] [place] [address] [phone] * (ABNORMAL) POCT Rapid COVID Ag (12/30/2024 11:02 AM EDT) Pathologist [facility] Rapid COVID Ag Positive Swab 12/30/2024 11:0 2 AM EDT us Costello Name POINT OF CARE TEST ENTER/EDIT OR DERABLES Edited Result - Final * (ABNORMAL) Lipid Panel, Standard (10/16/2024 9:10 AM EST) Pathologist [facility] Triglycerides 143 <150 mg/dL [facility] Comment:Desirable Triglyceri de: less than 150 mg/dLBorderline High Triglyceride 150-199 mg/dLHigh Triglyceride: 200-499 mg/dLVery High Triglyceride: greater than or equal to 5OO mg/dL Cholesterol 149 <200 mg/dL [facility] Comment:Desirable Cholestero l: less than 200 mg/dLBorderline High Cholesterol: 200-239 mg/dLHigh Cholesterol: greater than 239 mg/dL LDL Cholesterol Calculated 89 <100 mg/dL [facility] Comment:Desirable LDL: less than 100 mg/dLNear Optimal/Above Optimal LDL: 110- 129 mg/dLBorderline High LDL: 130-159 mg/dLHigh LDL: 160-189 mg/dLVery High LDL: greater than or equal to 190 mg/dL HDL Cholesterol 32(L) >40 mg/dL [facility] Comment:Desirable HDL: great er than 40 mg/dL Note: This HDL assay may give artificially low results in patients with liver disease. Blood Venous blood specimen / Unknown 10/16/2024 9:10 AM EST 10/16/2024 9:10 AM EST Sofia Gonzalez MD LAB BLOOD ORDERABLES Final Result Performing Organization Address [facility]/ZIP Co de Phone Number [facility] [address] [place] [address] [phone] * Mammography (05/28/2024) Mammogram BIRADS 2 Normal, Abnormal, BIRADS 1 , BIRADS 2 Anatomical Region Laterality Modality Other Damaso Provider HEALTH MAINTENANCE Final Result * HIV [...] below the limit ofdetection of this assay.The Canvace HIV Ag/Ab Combo assay result andsupplemental assay results should be interpreted inconjunction with the patient's clinical presentation,history and other laboratory results. If the results areinconsistent with clinical evidence, additional testing issuggested to confirm the result. 07/04/2023 9:18 AM EDT 07/04/2023 9:18 AM EDT Sofia Gonzalez MD LAB BLOOD ORDERABLES Final Result Performing Organization Address City/[facility]/ZIP Co de Phone Number [facility] [address] [place] [address] [phone] * Hepatitis C Antibody (03/21/2022 9:21 AM EDT) Hepatitis C Antibody Nonreactive Blood 03/21/2022 9:21 AM EDT Historical Provider POINT OF CARE TEST ENTER/ EDIT ORDERABLES Final Result * Hm Colonoscopy (05/31/2017 9:38 AM EDT) Historical Provider HEALTH MAINTENANCE Final Result * Pap Smear (06/14/2009 12:00 AM EDT) Swab Historical Provider LAB CYTOLOGY ORDERABLES F inal Result Performing Organization Address City/State/[facility] Co de Phone Number [facility] [address] [place] [address] [phone] from Last 3 Months or Most Recently Relevant to Health Maintenance Insurance [facility] [place] [id number] [place] Advance Directives Documents on File Type Date Recorded Patient It Service Delivery Manager Expl anation Advance Directives and Living Will 02/04/2024 Health Care Proxy 02/04/24 Care Teams Van Driver Helper Relationship Specialty Start Date End Date Mccone, MD Sofia [address] [place] [phone] PCP - General Family Medicine 10/01/18 Emi Mcclellan [address] [place] [address] 3rd [place] [address] Gastroenterology 11/26/24 Giovani Yu MD [address] [facility] [place] [address]- Endocrinology 12/02/24
--- OUTSIDE RECORDS SUMMARY | 2025-01-26 12:44 | XMS_ITS | Encounter Summary ---
Author Organization [employer] Address [address] [facility] [address] [place] [address] Care Team Providers Care Gas Turbine Mechanic Name Role Phone Sofia Gonzalez MD Primary Care Provider +1- [phone] Emi Mcclellan Unavailable Encounter Details Date Type Department Care Team (Late st Contact Info) Description 08/03/2023 Orders Only [facility] MEDICINE [address] [place], [place] [phone] Sofia Gonzalez MD [address] [place], [place] [phone] Herniation of intervertebral disc at C4-C5 level [...] AM EDT Office Visit [facility] [address] [place] [phone] Sofia Gonzalez MD [address] [place] [phone] documented as of this encounter Visit Diagnoses Diagnosis Herniation of intervertebral disc at C4-C5 level- Primary documented in this encounter Care Teams Gas Turbine Mechanic Relationship Specialty Start Date End Date Sofia Gonzalez MD [address] [place] [address] PCP - General Family Medicine 10/01/18 Emi Mcclellan [address] [place] [address] 3rd [place] [address] Gastroenterology 11/26/24 Giovani Yu MD [address] [facility] [place] [address]- Endocrinology 12/02/24 documented as of this encounter
== END 2025-01-26 11:09 | disposition home or self-care (01) ==
LOC: HO.HGI 10:44
PROVIDERS: PCP Family Medicine; Visit Provider Internal Medicine
DX: R11.2 Nausea with vomiting, unspecified (principal); R10.9 Unspecified abdominal pain; K59.00 Constipation, unspecified; R14.0 Abdominal distension (gaseous); K21.9 Gastro-esophageal reflux disease without esophagitis
CPT/HCPCS: 99214

== ENCOUNTER → 2025-01-26 10:43 | Outpatient (BNVA) | payer MEDICARE, MEDICAID, SELFPAY | PROVIDERS: PCP Family Medicine; Visit Provider Internal Medicine | DX: R11.2 Nausea with vomiting, unspecified (principal); R10.9 Unspecified abdominal pain; K59.00 Constipation, unspecified; R14.0 Abdominal distension (gaseous); K21.9 Gastro-esophageal reflux disease without esophagitis | CPT/HCPCS: 99212 ==

== ENCOUNTER 2025-03-24 09:16 | Outpatient (REF) | payer MEDICARE, MEDICAID, SELFPAY ==
--- OUTSIDE RECORDS SUMMARY | 2025-03-24 09:55 | XMS_ITS | Encounter Summary ---
Author Organization [employer] Address [address] [facility] [address] [place] [address] Care Team Providers Care Pearl Restorer Name Role Phone Sofia Gonzalez MD Primary Care Provider [phone] Emi Mcclellan Unavailable Encounter Details Date Type Department Care Team (Late st Contact Info) Description 08/03/2023 Orders Only [facility] [address] [place], [place] [phone] Sofia Gonzalez MD [address] [place], [place] [phone] Herniation of intervertebral disc at C4-C5 level [...] as of this encounter Plan of Treatment Not on file documented as of this encounter Visit Diagnoses Diagnosis Herniation of intervertebral disc at C4-C5 level- Primary documented in this encounter Care Teams Pearl Restorer Relationship Specialty Start Date End Date Sofia Gonzalez MD [address] [place] [id number] PCP - General Family Medicine 10/01/18 Emi Mcclellan [address] [place] [address] [address] [place] [address] Gastroenterology 11/26/24 Giovani Yu MD [address] [facility] [place] [address]- Endocrinology 12/02/24 documented as of this encounter
[2025-03-24 10:15] LABS: Alanine Aminotransferase 23 U/L (0-31); Albumin Level 3.9 g/dL (3.5-5.0); Alkaline Phosphatase 77 U/L (39-117); Anion Gap 10 (12-20); Aspartate Amino Transferase 34 U/L (5-31); Bilirubin Total 0.5 mg/dL (0.0-1.0); Blood Urea Nitrogen 14 mg/dL (9-16); Carbon Dioxide 30 mmol/L (22-29); Chloride 104 mmol/L (96-108); Estimated Glomerular Filt Rate > 60; Glucose Random 107 mg/dL (60-115); Potassium 3.9 mmol/L (3.3-5.1); Sodium 140 mmol/L (135-145); Total Protein 6.6 g/dL (6.5-8.0)
== END 2025-03-24 09:17 | disposition home or self-care (01) ==
LOC: HO.LAB 09:16
PROVIDERS: PCP Family Medicine; Visit Provider Family Medicine
DX: Z01.89 Encounter for other specified special examinations (principal)
CPT/HCPCS: 36415; 80053

== ENCOUNTER 2025-08-03 09:28 | Outpatient (AMB) | payer MEDICARE, MEDICAID, SELFPAY ==
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
[2025-08-03 10:01] VITALS: BP 121/55; PULSE 59; BMI 26.6
--- OUTSIDE RECORDS SUMMARY | 2025-08-03 10:41 | XMS_ITS | Clinical Summary ---
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 POINT OF CARE TEST ENTER/ EDIT ORDERABLES Final Result * Pap Smear (06/14/2009 12:00 AM EDT) Swab us Historical Provider LAB CYTOLOGY ORDERABLES F inal Result Performing Organization Address City/State/[facility] Co de Phone Number [facility] [address] [place] [address] [phone] from Last 3 Months or Most Recently Relevant to Health Maintenance Insurance [facility] STANDARD MEDICARE DENTAL-[facility] MEDICAID STAND ADULT Advance Directives Documents on File Type Date Recorded 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 [place] [address]- Endocrinology 12/02/24
--- OUTSIDE RECORDS SUMMARY | 2025-08-03 10:41 | XMS_ITS | Encounter Summary ---
Author Organization [employer] Address 75 [facility] 7t [place] [address] Care Team Providers Care Salon Assistant Name Role Phone Sofia Gonzalez MD Primary Care Provider +1- [phone] Emi Mcclellan Unavailable Encounter Details Date Type Department Care Team (Late st Contact Info) Description 06/14/2023 Abstract [facility] MEDICINE [address] [place] [address] Sofia Gonzalez MD [address] [place] [address] Social History Tobacco Use Types Packs/Day Years [...] Description 08/10/2025 9:00 AM EST Office Visit [facility] [address] [place] [address] Sofia Gonzalez MD [address] [place] [address] 08/17/2025 9:00 AM EST Office Visit [facility] ADULT DENTAL [address] [place] [address] [phone] Miguel Arias, DMD 230 [place] [address] 08/26/2025 9:30 AM EST Office Visit [facility] ADULT DENTAL 230 [place] [address] Shelly Mosqueda documented as of this encounter Visit Diagnoses Not on filedocumented in this encounter Care Teams Salon Assistant Relationship Specialty Start Date End Date Sofia Gonzalez MD 230 [place], [place] [phone] PCP - General Family Medicine 10/01/18 Emi Mcclellan [address] [place] [address] 3rd [place] [address] Gastroenterology 11/26/24 Giovani Yu MD 3300 [facility] Endocrinology [place], [place] [phone]- Endocrinology 12/02/24 documented as of this encounter
--- OUTSIDE RECORDS SUMMARY | 2025-08-03 10:41 | XMS_ITS | Encounter Summary ---
Author Organization [employer] Address [address] [facility] [address] 7t [place] [address] Care Team Providers Care Vp Product Management Name Role Phone Sofia Gonzalez MD Primary Care Provider +1- [phone] Emi Mcclellan Unavailable Encounter Details Date Type Department Care Team (Late st Contact Info) Description 08/03/2023 Orders Only [facility] MED[facility] 230 [place], [place] [phone] Sofia Gonzalez MD 230 [place], [place] [phone] Herniation of intervertebral disc at C4-C5 level [...] 08/10/2025 9:00 AM EST Office Visit [facility] [address] [place] [address] Sofia Gonzalez MD 230 [place] [address] 08/17/2025 9:00 AM EST Office Visit [facility] ADULT DENTAL [address] [place] [address] Miguel Arias, LIBERTAD 230 [place] [address] 08/26/2025 9:30 AM EST Office Visit [facility] ADULT DENTAL [address] [place] [address] Shelly Mosqueda documented as of this encounter Visit Diagnoses Diagnosis Herniation of intervertebral disc at C4-C5 level- Primary documented in this encounter Care Teams Vp Product Management Relationship Specialty Start Date End Date Sofia Gonzalez MD [address] [place] [address] PCP - General Family Medicine 10/01/18 Emi Mcclellan [address] 3rd [place] [address] Gastroenterology 11/26/24 Giovani Yu MD 3300 [facility] [place] [address]- Endocrinology 12/02/24 documented as of this encounter
--- OUTSIDE RECORDS SUMMARY | 2025-08-03 10:42 | XMS_ITS | Encounter Summary ---
Author Organization [employer] Address 75 [facility] 7t [place] [address] Care Team Providers Care High School Biology Teacher Name Role Phone Sofia Gonzalez MD Primary Care Provider +1- [phone] Emi Mcclellan Unavailable Encounter Details Date Type Department Care Team (Latest Contact Info) Description 03/14/2019 Abstract [facility] CONVERSIONS Dental, Provider, DDS Social History Tobacco [...] Description 08/10/2025 9:00 AM EST Office Visit [facility] MEDICINE [address] [place] [address] Sofia Gonzalez MD 230 [place] [address] 08/17/2025 9:00 AM EST Office Visit [facility] ADULT DENTAL 230 [place] [address] Miguel Arias DMD 230 [place] [address] 08/26/2025 9:30 AM EST Office Visit [facility] ADULT DENTAL 230 [place] [address] Shelly Mosqueda documented as of this encounter Visit Diagnoses Not on filedocumented in this encounter Care Teams High School Biology Teacher Relationship Specialty Start Date End Date Sofia Gonzalez MD 230 [place] [address] PCP - General Family Medicine 10/01/18 Emi Mcclellan [address] [place] [address] 3rd [place] [address] Gastroenterology 11/26/24 Giovani Yu MD 3309 [facility] [place] [address]- Endocrinology 12/02/24 documented as of this encounter
--- OUTSIDE RECORDS SUMMARY | 2025-08-03 10:42 | XMS_ITS | Encounter Summary ---
Author Organization [email or web address] Address [address] [place] [address] 7t [place] [address] Care Team Providers Care Coal Sample Tester Name Role Phone Sofia Gonzalez MD Primary Care Provider +1- [phone] Emi Mcclellan Unavailable Reason for Referral * Imaging (Routine) - Closed Specialty Diagnoses / Procedures Referred By Contkaylie bess Referred To Contact Radiology Diagnoses Abnormal mammogram Procedures BI Sterotactic Guided Breast Localization and Biopsy Left Sofia Gonzalez MD 230 [place] [address] Phone: tel: fax: [facility] fax: Referral ID Status Reason Start Date Expiration Date Visits Re quested Visits Authorized [id number] Closed 04/02/2023 04/01/2024 1 1 Encounter Details Date Type Department Care Team (Late st Contact Info) Description 04/02/2023 Orders Only [facility] MED[facility]INE 230 [place], [place] [phone] Sofia Gonzalez MD 230 [place], [place] [phone] Abnormal mammogram (Primary Dx) Social History Tobacco [...] Description 08/10/2025 9:00 AM EST Office Visit [facility] MED[facility]INE [address] [place] [address] Sofia Gonzalez MD [address] [place] [address] 08/17/2025 9:00 AM EST Office Visit [facility] ADULT DENTAL [address] [place] [address] Miguel Arias DMD 230 [place] [address] 08/26/2025 9:30 AM EST Office Visit [facility] ADULT DENTAL [address] [place] [address] Shelly Mosqueda Scheduled Orders Name Type Priority Associated Diagnoses Orde r Schedule BI Sterotactic Guided Breast Localization and Biopsy Left Imaging Routine Abnormal mammogram Expected: 04/02/2023, Expires: 06/03/2024 documented as of this encounter Visit Diagnoses Diagnosis Abnormal mammogram- Primary Abnormal mammogram, unspecified documented in this encounter Care Teams Coal Sample Tester Relationship Specialty Start Date End Date Sofia Gonzalez MD [address] [place] [address] PCP - General Family Medicine 10/01/18 Emi Mcclellan [address] [place] [address] Drive 3rd [place] [address] Gastroenterology 11/26/24 Giovani Yu MD 3300 [facility] [place] [address]- Endocrinology 12/02/24 documented as of this encounter
--- OUTSIDE RECORDS SUMMARY | 2025-08-03 10:42 | XMS_ITS | Encounter Summary ---
Author Organization [employer] Address [address] [place] [address] 7t [place] [address] Care Team Providers Care Water Resources Project Manager Name Role Phone Sofia Gonzalez MD Primary Care Provider +1- [phone] Emi Mcclellan Unavailable Reason for Visit * Reason Comments Med Refill Encounter Details Date Type Department Care Team (Late Contact Info) Description 04/02/2023 Refill [facility] MED[facility]INE [address] [place] [address] Sofia Gonzalez MD 230 [place], [place] [phone] Social History Tobacco Use Types Packs/Day Years [...] Description 08/10/2025 9:00 AM EST Office Visit [facility] MEDICINE [address] [place] [address] [phone] Sofia Gonzalez MD 230 [place] [address] 08/17/2025 9:00 AM EST Office Visit [facility] ADULT DENTAL 230 [place], [place] [phone] Miguel Arias, DMD 230 [place], [place] [phone] 08/26/2025 9:30 AM EST Office Visit [facility] ADULT DENTAL 230 [place], [place] [phone] Shelly Mosqueda documented as of this encounter Visit Diagnoses Not on filedocumented in this encounter Care Teams Water Resources Project Manager Relationship Specialty Start Date End Date Sofia Gonzalez MD [address] [place] [address] [phone] PCP - General Family Medicine 10/01/18 Emi Mcclellan [address] [place] [address] 3rd [place] [address] Gastroenterology 11/26/24 Giovani Yu MD 3300 [facility] Endocrinology [place], [place] [phone]- Endocrinology 12/02/24 documented as of this encounter
--- OUTSIDE RECORDS SUMMARY | 2025-08-03 10:42 | XMS_ITS | Encounter Summary ---
Author Organization [employer] Address [address] [place] [address] 7t h Floor [place] [phone] Care Team Providers Care Production Associate Name Role Phone Sofia Gonzalez MD Primary Care Provider +1- [phone] Emi Mcclellan Unavailable Encounter Details Date Type Department Care Team (Late Contact Info) Description 03/29/2023 Orders Only [facility] MEDICINE [address] [place] [address] ProviderDamaso MD Social History Tobacco Use Types [...] Description 08/10/2025 9:00 AM EST Office Visit [facility] MED[facility] 230 [place] [address] Sofia Gonzalez MD 230 [place] [address] 08/17/2025 9:00 AM EST Office Visit [facility] ADULT DENTAL 230 [place] [address] Miguel Arias DMD 230 [place] [address] 08/26/2025 9:30 AM EST Office Visit [facility] ADULT DENTAL 230 [place] [address] Shelly Mosqueda documented as of this encounter Procedures Procedure Name Priority Date/Time Associated Diagnosis Comments MAMMOGRAPHY Routine 03/29/2023 MAMMOGRAPHY Routine 03/29/2023 documented in this encounter Results * Mammography (03/29/2023) HM Mammogram Bi-rads 4 Anatomical Region Laterality Modality Other Narrative 03/29/2023 Recommended stereotactic biopsy of left breast for calcifications in posterior left upper outer breast us Historical Provider HEALTH MAINTENANCE Edited Result - Final * Mammography (03/29/2023) Anatomical Region Laterality Modality Other us Historical Provider HEALTH MAINTENANCE Final Result documented in this encounter Visit Diagnoses Not on filedocumented in this encounter Care Teams Production Associate Relationship Specialty Start Date End Date Sofia Gonzalez MD 230 [place] [address] PCP - General Family Medicine 10/01/18 Emi Mcclellan [address] [place] [address] 3rd [place] [address] Gastroenterology 11/26/24 Giovani Yu MD 3300 [facility] [place] [address]- Endocrinology 12/02/24 documented as of this encounter
--- OUTSIDE RECORDS SUMMARY | 2025-08-03 10:42 | XMS_ITS | Encounter Summary ---
Author Organization [employer] Address [address] [place] [address] 7t [place] [address] Care Team Providers Care Choir Teacher Name Role Phone Sofia Gonzalez MD Primary Care Provider +1- [phone] Emi Mcclellan Unavailable Reason for Visit * Reason Comments Med Refill Encounter Details Date Type Department Care Team (Late Contact Info) Description 12/23/2022 Refill [facility] MEDICINE 230 [place] [address] Sofia Gonzalez MD 230 [place], [place] [phone] Social History Tobacco Use Types Packs/Day Years [...] Department Care Team (Late Contact Info) Description 08/10/2025 9:00 AM EST Office Visit [facility] MEDICINE [address] [place] [address] [phone] Sofia Gonzalez MD 230 [place] [address] 08/17/2025 9:00 AM EST Office Visit [facility] ADULT DENTAL 230 [place], [place] [phone] Miguel Arias, DMD 230 [place], [place] [phone] 08/26/2025 9:30 AM EST Office Visit [facility] ADULT DENTAL 230 [place], [place] [phone] Shelly Msoqueda documented as of this encounter Visit Diagnoses Not on filedocumented in this encounter Care Teams Choir Teacher Relationship Specialty Start Date End Date Sofia Gonzalez MD [address] [place] [address] [phone] PCP - General Family Medicine 10/01/18 Emi Mcclellan [address] [place] [address] 3rd [place] [address] Gastroenterology 11/26/24 Giovani Yu MD 3300 [facility] Endocrinology [place], [place] [phone]- Endocrinology 12/02/24 documented as of this encounter
--- OUTSIDE RECORDS SUMMARY | 2025-08-03 10:42 | XMS_ITS | Encounter Summary ---
Author Organization [employer] Address 75 [facility] 7t [place] [address] Care Team Providers Care Biological Engineer Name Role Phone Sofia Gonzalez MD Primary Care Provider +1- [phone] Emi Mcclellan Unavailable Encounter Details Date Type Department Care Team (Latest Contact Info) Description 10/19/2021 Abstract [facility] CONVERSIONS Dental, Provider, DDS Social History [...] Description 08/10/2025 9:00 AM EST Office Visit [facility] MEDICINE [address] [place] [address] Sofia Gonzalez MD 230 [place] [address] 08/17/2025 9:00 AM EST Office Visit [facility] ADULT DENTAL 230 [place] [address] Miguel Arias DMD 230 [place] [address] 08/26/2025 9:30 AM EST Office Visit [facility] ADULT DENTAL [address] [place] [address] Shelly Mosqueda documented as of this encounter Visit Diagnoses Not on filedocumented in this encounter Care Teams Biological Engineer Relationship Specialty Start Date End Date Sofia Gonzalez MD 230 [place] [address] PCP - General Family Medicine 10/01/18 Emi Mcclellan [address] [place] [address] 3rd [place] [address] Gastroenterology 11/26/24 Giovani Yu MD [address] [facility] [place] [address]- Endocrinology 12/02/24 documented as of this encounter
--- OUTSIDE RECORDS SUMMARY | 2025-08-03 10:42 | XMS_ITS | Encounter Summary ---
Author Organization [employer] Address 75 [facility] 7t [place] [address] Care Team Providers Care Putty Glazer Name Role Phone Sofia Gonzalez MD Primary Care Provider +1- [phone] Emi Mcclellan Unavailable Encounter Details Date Type Department Care Team (Late st Contact Info) Description 10/09/[address] [facility] MEDICINE 230 [place] [address] Sofia Gonzalez MD 230 [place] [address] Social History Tobacco Use Types Packs/Day Years [...] AM EST documented as of this encounter Functional Status * Over the past 2 weeks, how often have you been bothered by any of the following problems? Question Answer Date of Assessment Author Little interest or pleasure in doing things Not at all 10/11/2022 9:51 AM EST Jessika Ordaz MA Feeling down, depressed, or hopeless Not at all 10/11/2022 9:51 AM EST Jessika Ordaz MA Patient Health Questionnaire -2 Score 0 10/11/2022 9:51 AM EST Jessika Ordaz MA documented as of this encounter Plan of Treatment Upcoming Encounters Date Type Department Care Team (Late st Contact Info) Description 08/10/2025 9:00 AM EST Office Visit [facility] MEDICINE [address] [place] [address] Sofia Gonzalez MD 230 [place] [address] 08/17/2025 9:00 AM EST Office Visit [facility] ADULT DENTAL 230 [place] [address] Miguel Arias DMD 230 [place] [address] 08/26/2025 9:30 AM EST Office Visit [facility] ADULT DENTAL 230 [place] [address] Shelly Mosqueda documented as of this encounter Visit Diagnoses Not on filedocumented in this encounter Care Teams Putty Glazer Relationship Specialty Start Date End Date Sofia Gonzalez MD [address] [place] [address] PCP - General Family Medicine 10/01/18 Emi Mcclellan [address] 3rd [place] [address] Gastroenterology 11/26/24 Giovani Yu MD 3300 [facility] [place] [address]- Endocrinology 12/02/24 documented as of this encounter
--- OUTSIDE RECORDS SUMMARY | 2025-08-03 10:42 | XMS_ITS | Encounter Summary ---
Author Organization [employer] Address 75 [facility] 7t [place] [address] Care Team Providers Care Attraction Worker Name Role Phone Sofia Gonzalez MD Primary Care Provider +1- [phone] Emi Mcclellan Unavailable Reason for Visit * Reason Comments Med Refill Encounter Details Date Type Department Care Team ([facility] st Contact Info) Description 07/31/2025 Refill [facility] MEDICINE 230 [place] [address] Sofia Gonzalez MD 230 [place], [place] [phone] Vitamin D deficiency Social History Tobacco Use Types Packs/Day Years [...] Description 08/10/2025 9:00 AM EST Office Visit [facility] MEDICINE [address] [place] [address] Sofia Gonzalez MD 230 [place] [address] 08/17/2025 9:00 AM EST Office Visit [facility] ADULT DENTAL [address] [place] [address] Miguel Arias DMD 230 [place] [address] 08/26/2025 9:30 AM EST Office Visit [facility] ADULT DENTAL [address] [place] [address] Shelly Mosqueda documented as of this encounter Goals Goal Patient Goal Type Associated Problems Recent Progress Patient-Stated? Author Quit using tobacco (cigarettes, smokeless, etc) Tobacco Use No Aria Triplett, CristianaD documented as of this encounter Visit Diagnoses Diagnosis Vitamin D deficiency documented in this encounter Additional Health Concerns Assessment Noted Time PHQ-9 Depression Total Score: 3 02/03/20 25 9:36 AM EDT documented as of this encounter Care Teams Attraction Worker Relationship Specialty Start Date End Date Sofia Gonzalez MD 230 [place] [address] PCP - General Family Medicine 10/01/18 Emi Mcclellan [address] [place] [address] 3rd [place] [address] Gastroenterology 11/26/24 Giovani Yu MD 3300 [facility] [place] [address]- Endocrinology 12/02/24 documented as of this encounter
--- OUTSIDE RECORDS SUMMARY | 2025-08-03 10:42 | XMS_ITS | Encounter Summary ---
Author Organization [employer] Address [address] [facility] [address] 7t [place] [address] Care Team Providers Care Development Eng Name Role Phone Sofia Gonzalez MD Primary Care Provider +1- [phone] Emi Mcclellan Unavailable Reason for Visit * Reason Comments Med Refill Encounter Details Date Type Department Care Team ([facility] st Contact Info) Description 04/18/2025 Refill [facility] 230 [place] [address] Name, MD Pravin 230 [place] [address] Seasonal allergies Social History Tobacco Use Types Packs/Day Years [...] Description 08/10/2025 9:00 AM EST Office Visit [facility] MED[facility]INE [address] [place] [address] Sofia Gonzalez MD 230 [place] [address] 08/17/2025 9:00 AM EST Office Visit [facility] ADULT DENTAL [address] [place] [address] Miguel Arias DMD 230 [place] [address] 08/26/2025 9:30 AM EST Office Visit [facility] ADULT DENTAL [address] [place] [address] Shelly Mosqueda documented as of this encounter Goals Goal Patient Goal Type Associated Problems Recent Progress Patient-Stated? Author Quit using tobacco (cigarettes, smokeless, etc) Tobacco Use No Aria Triplett, CristianaD documented as of this encounter Visit Diagnoses Diagnosis Seasonal allergies Allergic rhinitis, cause unspecified documented in this encounter Additional Health Concerns Assessment Noted Time PHQ-9 Depression Total Score: 3 02/03/20 25 9:36 AM EDT documented as of this encounter Care Teams Development Eng Relationship Specialty Start Date End Date Sofia Gonzalez MD 230 [place] [address] PCP - General Family Medicine 10/01/18 Emi Mcclellan [address] [place] [address] 3rd [place] [address] Gastroenterology 11/26/24 Giovani Yu MD 3300 [facility] [place] [address]- Endocrinology 12/02/24 documented as of this encounter
--- OUTSIDE RECORDS SUMMARY | 2025-08-03 10:42 | XMS_ITS | Encounter Summary ---
Author Organization [employer] Address [address] [facility] 7t [place] [address] Care Team Providers Care Machine Cementer Name Role Phone Sofia Gonzalez MD Primary Care Provider +1- [phone] Emi Mcclellan Unavailable Reason for Visit * Reason Onset Date Comments possible rs 07/17/2025 Encounter Details Date Type Department Care Team ([facility] st Contact Info) Description 07/17/2025 Telephone [facility] ADULT DENTAL [address] [place] [address] Hesham Urias DDS [address] [place] [address] possible rs Social History Tobacco Use Types Packs/Day Years [...] encounter Miscellaneous Notes * Telephone Encounter - Marilyn Wall - 07/17/2025 12:33 PM EDT Patient called in concerned because she was scheduled today to come in for 2pm for a tooth extraction. However the anti anxiety medication that was scripted for her appointment is not ready yet in the pharmacy. Along with this her car is not working and unsure if she will make it to the appt. She did not want to cancel the appointment without first speaking to someone in the office. I did try to connect but unable to. Please reach out to patient DR documented in this encounter Plan of Treatment Upcoming Encounters Date Type Department Care Team (Late st Contact Info) Description 08/10/2025 9:00 AM EST Office Visit [facility] MEDICINE [address] [place] [address] Sofia Gonzalez MD [address] [place] [address] 08/17/2025 9:00 AM EST Office Visit [facility] ADULT DENTAL [address] [place] [address] Miguel Arias DMD [address] [place] [address] 08/26/2025 9:30 AM EST Office Visit [facility] ADULT DENTAL [address] [place] [address] Shelly Mosqueda documented as of this encounter Goals Goal Patient Goal Type Associated Problems Recent Progress Patient-Stated? Author Quit using tobacco (cigarettes, smokeless, etc) Tobacco Use No Aria Triplett, CristianaD documented as of this encounter Visit Diagnoses Not on filedocumented in this encounter Additional Health Concerns Assessment Noted Time PHQ-9 Depression Total Score: 3 02/03/20 9:36 AM EDT documented as of this encounter Care Teams Machine Cementer Relationship Specialty Start Date End Date Sofia Gonzalez MD [address] [place] [address] PCP - General Family Medicine 10/01/18 Emi Mcclellan [address] [place] [address] 3rd [place] [address] Gastroenterology 11/26/24 Giovani Yu MD [address] [facility] [place] [address]- Endocrinology 12/02/24 documented as of this encounter
== END 2025-08-03 10:58 | disposition home or self-care (01) ==
LOC: HO.HGI 09:28
PROVIDERS: PCP Family Medicine; Visit Provider Internal Medicine
DX: R11.2 Nausea with vomiting, unspecified (principal); R10.9 Unspecified abdominal pain; R14.0 Abdominal distension (gaseous)
CPT/HCPCS: 99214; G2211

== ENCOUNTER → 2025-08-03 09:28 | Outpatient (BNVA) | payer MEDICARE, MEDICAID, SELFPAY | PROVIDERS: PCP Family Medicine; Visit Provider Internal Medicine | DX: K21.9 Gastro-esophageal reflux disease without esophagitis (principal); R10.32 Left lower quadrant pain; R14.0 Abdominal distension (gaseous); Z12.11 Encounter for screening for malignant neoplasm of colon; Z72.0 Tobacco use; K59.01 Slow transit constipation | CPT/HCPCS: 99212 ==

== ENCOUNTER 2025-08-11 09:46 | Outpatient (REF) | payer MEDICARE, MEDICAID, SELFPAY ==
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
--- NOTE | ~2025-08-11 | CT_ITS ---
CLINICAL HISTORY: F17.210 - Nicotine dependence, cigarettes, uncomplicated Examination CT lung cancer screening History Screening examination performed for pulmonary nodules Technique Axial CT images of the chest using low-dose technique. Effective radiation dose total: 51.9 mGy-cm, CTDIvol 1.2 mGy. Referring provider counseled the patient on shared decision-making for LDCT screening. Additional counseling was provided on smoking cessation. Comparison: CT/REG/MD/SR - CT LUNG SCREENING - 07/25/24 10:[address]/MD/SR - CT CHEST WO IV CON - 07/20/23 07:36 EDT Findings: Lungs: Solid pulmonary nodules measure up to 5 mm (series 6, image 69, right lower lobe ). Calcified granuloma. Mild emphysema. Mild amount of mosaic attenuation which may indicate air trapping Coronary artery calcifications: None Other: None Limited upper abdomen: Status post cholecystectomy Impression: LungRADS 2 - Benign Appearance: Continue annual screening with low dose Chest CT in 12 months. ##L2# This document has been electronically signed by: Chetna Moseley MD on 08/12/2025 22:14:09
--- OUTSIDE RECORDS SUMMARY | 2025-08-11 11:01 | XMS_ITS | Encounter Summary ---
Author Organization [employer] Address [address] [facility] [address] [place] [address] Care Team Providers Care Stage Manager Name Role Phone Sofia Gonzalez MD Primary Care Provider +1- [phone] Emi Mcclellan Unavailable Encounter Details Date Type Department Care Team (Late st Contact Info) Description 03/29/2023 Orders Only [facility] MEDICINE [address] [place] [address] Provider, MD Damaso Social History Tobacco Use Types Packs/Day Years [...] Description 08/17/2025 9:00 AM EST Office Visit [facility] ADULT DENTAL [address] [place] [address] Miguel Arias, [employer] [address] [place], [place] [phone] 09/01/2025 9:30 AM EST Office Visit [facility] ADULT DENTAL [address] [place] [address] Shelly Mosqueda documented as of this encounter Procedures Procedure Name Priority Date/Time Associated Diagnosis Comments HM MAMMOGRAPHY Routine 03/29/2023 MAMMOGRAPHY Routine 03/29/2023 documented [...] on filedocumented in this encounter Care Teams Stage Manager Relationship Specialty Start Date End Date Sofia Gonzalez MD [address] [place] [address] PCP - General Family Medicine 10/01/18 Emi Mcclellan [address] [place] [address] 3rd [place] [address] Gastroenterology 11/26/24 Giovani Yu MD [address] [facility] [place] [address]- Endocrinology 12/02/24 documented as of this encounter
--- OUTSIDE RECORDS SUMMARY | 2025-08-11 11:01 | XMS_ITS | Encounter Summary ---
Author Organization [employer] Address [address] [place] [address] Care Team Providers Care Armor Reconnaissance Vehicle Crewman Name Role Phone Sofia Gonzalez MD Primary Care Provider [phone]- [phone] Emi Mcclellan Unavailable Reason for Visit * Reason Comments Med Change Request Encounter Details Date Type Department Care Team ([facility] st Contact Info) Description 08/10/2025 Refill [facility] [address] [place], [place] [phone] Sofia Gonzalez MD [address] [place], [place] [id number] Tobacco use disorder Social History Tobacco Use Types Packs/Day Years [...] Description 08/17/2025 9:00 AM EST Office Visit [facility] [address] [place] [address] Miguel Arias, LIBERTAD [address] [place] [address] 09/01/2025 9:30 AM EST Office Visit [facility] [address] [place] [address] Shelly Mosqueda documented as of this encounter Goals Goal Patient Goal Type Associated Problems Recent Progress Patient-Stated? Author Quit using tobacco (cigarettes, smokeless, etc) Tobacco Use No Aria Triplett, CristianaD documented as of this encounter Visit Diagnoses Diagnosis Tobacco use disorder documented in this encounter Additional Health Concerns Assessment Noted Time PHQ-9 Depression Total Score: 3 02/03/20 25 9:36 AM EDT documented as of this encounter Care Teams [employer] Crewman Relationship Specialty Start Date End Date Sofia Gonzalez MD [address] [place] [id number] PCP - General Family Medicine 10/01/18 Emi Mcclellan [address] [place] [address] [address] [place] [address] Gastroenterology 11/26/24 Giovani Yu MD [address] [facility] [place] [address]- Endocrinology 12/02/24 documented as of this encounter
--- OUTSIDE RECORDS SUMMARY | 2025-08-11 11:01 | XMS_ITS | Encounter Summary ---
Author Organization [employer] Address [address] [facility] [address] [place] [address] Care Team Providers Care Bariatric Physician Name Role Phone Sofia Gonzalez MD Primary Care Provider [phone]- [phone] Emi Mcclellan Unavailable Encounter Details Date Type Department Care Team (Latest Contact Info) Description 03/14/2019 Abstract [facility] CONVERSIONS Dental, Provider, DDS Social History Tobacco [...] Description 08/17/2025 9:00 AM EST Office Visit [facility] [address] [place] [address] Miguel Arias DMD [address] [place] [address] 09/01/2025 9:30 AM EST Office Visit [facility] [address] [place] [address] Shelly Mosqueda documented as of this encounter Visit Diagnoses Not on filedocumented in this encounter Care Teams Bariatric Physician Relationship Specialty Start Date End Date Sofia Gonzalez MD [address] [place] [address] PCP - General Family Medicine 10/01/18 Emi Mcclellan [address] [place] [address] Gastroenterology 11/26/24 Giovani Yu MD [address] [facility] [place] [address]- Endocrinology 12/02/24 documented as of this encounter
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
--- OUTSIDE RECORDS SUMMARY | 2025-08-11 11:01 | XMS_ITS | Encounter Summary ---
Author Organization [employer] Address [address] [facility] 7t [place] [address] Care Team Providers Care Branch Examiner Name Role Phone Sofia Gonzalez MD Primary Care Provider +1- [phone] Emi Mcclellan Unavailable Reason for Visit * Reason Comments Med Refill Encounter Details Date Type Department Care Team (Late st Contact Info) Description 12/23/2022 Refill [facility] MEDICINE [address] [place] [address] Sofia Gonzalez MD [address] [place] [address] Social History Tobacco Use Types Packs/Day Years [...] Description 08/17/2025 9:00 AM EST Office Visit [facility] ADULT DENTAL [address] [place] [address] Miguel Arias DMD [address] [place] [address] 09/01/2025 9:30 AM EST Office Visit [facility] ADULT DENTAL [address] [place], [place] [phone] Shelly Mosqueda documented as of this encounter Visit Diagnoses Not on filedocumented in this encounter Care Teams Branch Examiner Relationship Specialty Start Date End Date Sofia Gonzalez MD [address] [place], [place] [phone] PCP - General Family Medicine 10/01/18 Emi Mcclellan [address] [place] [address] 3rd [place] [address] Gastroenterology 11/26/24 Giovani Yu MD [address] [facility] [place] [address]- Endocrinology 12/02/24 documented as of this encounter
--- OUTSIDE RECORDS SUMMARY | 2025-08-11 11:01 | XMS_ITS | Encounter Summary ---
Author Organization [employer] Address [address] [facility] 7t [place] [address] Care Team Providers Care Mess Attendant Crew Name Role Phone Sofia Gonzalez MD Primary Care Provider +1- [phone] Emi Mcclellan Unavailable Reason for Visit * Reason Comments Med Refill Encounter Details Date Type Department Care Team (Late st Contact Info) Description 04/02/2023 Refill [facility] MEDICINE [address] [place] [address] Sofia Gonzalez MD [address] [place] [address] Social History Tobacco Use Types Packs/Day Years [...] Description 08/17/2025 9:00 AM EST Office Visit [facility] ADULT DENTAL [address] [place] [address] Miguel Arias DMD [address] [place] [address] 09/01/2025 9:30 AM EST Office Visit [facility] ADULT DENTAL [address] [place], [place] [phone] [place] Mosqueda documented as of this encounter Visit Diagnoses Not on filedocumented in this encounter Care Teams Mess Attendant Crew Relationship Specialty Start Date End Date Sofia Gonzalez MD [address] [place], [place] [phone] PCP - General Family Medicine 10/01/18 Emi Mcclellan [address] [place] [address] 3rd [place] [address] Gastroenterology 11/26/24 Giovani Yu MD [address] [facility] [place] [address]- Endocrinology 12/02/24 documented as of this encounter
--- OUTSIDE RECORDS SUMMARY | 2025-08-11 11:01 | XMS_ITS | Encounter Summary ---
Author Organization [employer] Address [address] [facility] [address] 7t [place] [address] Care Team Providers Care Polymerization Helper Name Role Phone Sofia Gonzalez MD Primary Care Provider +1- [phone] Emi Mcclellan Unavailable Reason for Visit * Reason Onset Date Comments chart prep 08/07/2025 Encounter Details Date Type Department Care Team ([facility] st Contact Info) Description 08/07/2025 Telephone [facility] MEDICINE [address] [place], [place] [phone] Sofia Gonzalez MD 230 [place], [place] [phone] chart prep Social History Tobacco Use Types Packs/Day Years [...] encounter Miscellaneous Notes * Telephone Encounter - Alen Warren [place] - 08/07/2025 10:13 AM EST Chart Prep Labs: done Images: not done Radiology CTA Head w/ and w/o contrast date: 04/09/2025 patient No Show Referrals: complete Vaccines due: Covid Screenings: not applicable Overdue care gaps: Not applicable documented in this encounter Plan of Treatment Upcoming Encounters Date Type Department Care Team (Late st Contact Info) Description 08/17/2025 9:00 AM EST Office Visit [facility] ADULT DENTAL [address] [place] [address] Miguel Arias DMD [address] [place] [address] 09/01/2025 9:30 AM EST Office Visit [facility] ADULT DENTAL [address] [place] [address] Shel[place] Mosqueda documented as of this encounter Goals Goal Patient Goal Type Associated Problems Recent Progress Patient-Stated? Author Quit using tobacco (cigarettes, smokeless, etc) Tobacco Use No Piers-RodriguezAria hodge, PharmD documented as of this encounter Visit Diagnoses Not on filedocumented in this encounter Additional Health Concerns Assessment Noted Time PHQ-9 Depression Total Score: 3 02/03/20 25 9:36 AM EDT documented as of this encounter Care Teams Polymerization Helper Relationship Specialty Start Date End Date Sofia Gonzalez MD [address] [place] [address] PCP - General Family Medicine 10/01/18 Emi Mcclellan [address] [place] [address] 3rd [place] [address] Gastroenterology 11/26/24 Giovani Yu MD [address] [facility] Endocrinology [place], [place] [phone]- Endocrinology 12/02/24 documented as of this encounter
--- OUTSIDE RECORDS SUMMARY | 2025-08-11 11:01 | XMS_ITS | Encounter Summary ---
Author Organization [employer] Address [address] [facility] [address] 7t [place] [address] Care Team Providers Care Chemical Production Machine Operator Name Role Phone Sofia Gonzalez MD Primary Care Provider +1- [phone] Emi Mcclellan Unavailable Encounter Details Date Type Department Care Team (Latest Contact Info) Description 08/10/2025 Travel Social History Tobacco Use Types Packs/Day Years [...] Description 08/17/2025 9:00 AM EST Office Visit [facility] ADULT DENTAL [address] [place] [address] Miguel Arias DMD [address] [place] [address] 09/01/2025 9:30 AM EST Office Visit [facility] ADULT DENTAL [address] [place] [address] Shel[place] Mosqueda documented as of this encounter [...] documented as of this encounter Care Teams Chemical Production Machine Operator Relationship Specialty Start Date End Date Sofia Gonzalez MD [address] [place] [address] PCP - General Family Medicine 10/01/18 Emi Mcclellan [address] [place] [address] 3rd [place] [address] Gastroenterology 11/26/24 Giovani Yu MD 3300 [facility] [place] [address]- Endocrinology 12/02/24 documented as of this encounter
--- OUTSIDE RECORDS SUMMARY | 2025-08-11 11:01 | XMS_ITS | Encounter Summary ---
Author Organization [employer] Address 75 [facility] 7t [place] [address] Care Team Providers Care Dentist Private Practice Name Role Phone Sofia Gonzalez MD Primary Care Provider +1- [phone] Emi Mcclellan Unavailable Encounter Details Date Type Department Care Team (Late st Contact Info) Description 06/14/2023 Abstract [facility] MEDICINE [address] [place] [address] Sofia Gonzalez MD [address] [place] [address] Social History Tobacco Use Types Packs/Day Years [...] Description 08/17/2025 9:00 AM EST Office Visit [facility] ADULT DENTAL [address] [place] [address] Miguel Arias DMD [address] [place] [address] 09/01/2025 9:30 AM EST Office Visit [facility] ADULT DENTAL [address] [place] [address] Shel[place] Mosqueda documented as of this encounter Visit Diagnoses Not on filedocumented in this encounter Care Teams Dentist Private Practice Relationship Specialty Start Date End Date Sofia Gonzalez MD [address] [place] [address] PCP - General Family Medicine 10/01/18 Emi Mcclellan [address] [place] [address] 3rd [place] [address] Gastroenterology 11/26/24 Giovani Yu MD [address] [facility] [place] [address]- Endocrinology 12/02/24 documented as of this encounter
--- OUTSIDE RECORDS SUMMARY | 2025-08-11 11:01 | XMS_ITS | Encounter Summary ---
Author Organization [employer] Address [address] [facility] 7t [place] [address] Care Team Providers Care Licensed Life And Health Agent Name Role Phone Sofia Gonzalez MD Primary Care Provider +1- [phone] Emi Mcclellan Unavailable Reason for Referral * Imaging (Routine) - Closed Specialty Diagnoses / Procedures Referred By Contkaylie t Referred To Contact Radiology Diagnoses Abnormal mammogram Procedures BI Sterotactic Guided Breast Localization and Biopsy Left Sofia Gonzalez MD [address] [place] [address] Phone: tel: fax: [facility] fax: Referral ID Status Reason Start Date Expiration Date Visits Re quested Visits Authorized [id number] Closed 04/02/2023 04/01/2024 1 1 Encounter Details Date Type Department Care Team (Late st Contact Info) Description 04/02/2023 Orders Only [facility] MEDICINE [address] [place] [phone] Sofia Gonzalez MD [address] [place], [place] [phone] Abnormal mammogram (Primary Dx) Social History Tobacco [...] Description 08/17/2025 9:00 AM EST Office Visit [facility] ADULT DENTAL [address] [place] [address] Miguel Arias DMD [address] [place] [address] 09/01/2025 9:30 AM EST Office Visit [facility] ADULT DENTAL [address] [place] [address] Shel[place] Mosqueda Scheduled Orders Name Type Priority Associated Diagnoses Orde r Schedule BI Sterotactic Guided Breast Localization and Biopsy Left Imaging Routine Abnormal mammogram Expected: 04/02/2023, Expires: 06/03/2024 documented as of this encounter Visit Diagnoses Diagnosis Abnormal mammogram- Primary Abnormal mammogram, unspecified documented in this encounter Care Teams Licensed Life And Health Agent Relationship Specialty Start Date End Date Sofia Gonzalez MD [address] [place] [address] PCP - General Family Medicine 10/01/18 Emi Mcclellan [address] [place] [address] 3rd [place] [address] Gastroenterology 11/26/24 Giovani Yu MD 3300 [facility] [place] [address]- Endocrinology 12/02/24 documented as of this encounter
--- OUTSIDE RECORDS SUMMARY | 2025-08-11 11:01 | XMS_ITS | Encounter Summary ---
Author Organization [employer] Address [address] [facility] [address] 7t [place] [address] Care Team Providers Care Allergy Specialist Name Role Phone Sofia Gonzalez MD Primary Care Provider +1- [phone] Emi Mcclellan Unavailable Encounter Details Date Type Department Care Team (Late st Contact Info) Description 08/03/2023 Orders Only [facility] MEDICINE [address] [place], [place] [phone] Sofia Gonzalez MD 230 [place], [place] [phone] Herniation of intervertebral disc at C4-C5 level [...] [facility] ADULT DENTAL [address] [place] [address] Miguel Arias DMD [address] [place] [address] 09/01/2025 9:30 AM EST Office Visit [facility] ADULT DENTAL [address] [place] [address] Shel[place] Mosqueda documented as of this encounter Visit Diagnoses Diagnosis Herniation of intervertebral disc at C4-C5 level- Primary documented in this encounter Care Teams Allergy Specialist Relationship Specialty Start Date End Date Sofia Gonzalez MD [address] [place] [address] PCP - General Family Medicine 10/01/18 Emi Mcclellan [address] 3rd [place] [address] Gastroenterology 11/26/24 Giovani Yu MD [address] [facility] [place] [address]- Endocrinology 12/02/24 documented as of this encounter
--- OUTSIDE RECORDS SUMMARY | 2025-08-11 11:01 | XMS_ITS | Encounter Summary ---
Author Organization [employer] Address [address] [facility] [address] 7t [place] [address] Care Team Providers Care Take Down Inspector Name Role Phone Sofia Gonzalez MD Primary Care Provider +1- [phone] Emi Mcclellan Unavailable Reason for Visit * Reason Comments Med Refill Encounter Details Date Type Department Care Team ([facility] st Contact Info) Description 04/18/2025 Refill [facility] [address] [place] [address] Name, MD Pravin [address] [place] [address] Seasonal allergies Social History Tobacco Use Types [...] Description 08/17/2025 9:00 AM EST Office Visit [facility] ADULT DENTAL [address] [place] [address] Miguel Arias, LIBERTAD [address] [place] [address] 09/01/2025 9:30 AM EST Office Visit [facility] ADULT DENTAL [address] [place] [address] [place] Mosqueda documented as of this encounter [...] documented as of this encounter Care Teams Take Down Inspector Relationship Specialty Start Date End Date Sofia Gonzalez MD [address] [place] [address] PCP - General Family Medicine 10/01/18 Emi Mcclellan [address] 3rd [place] [address] Gastroenterology 11/26/24 Giovani Yu MD [address] [facility] [place] [address]- Endocrinology 12/02/24 documented as of this encounter
--- OUTSIDE RECORDS SUMMARY | 2025-08-11 11:01 | XMS_ITS | Encounter Summary ---
Author Organization [employer] Address [address] [facility] 7t [place] [address] Care Team Providers Care House Father Name Role Phone Sofia Gonzalez MD Primary Care Provider +1- [phone] Emi Mcclellan Unavailable Encounter Details Date Type Department Care Team (Latest Contact Info) Description 10/19/2021 Abstract [facility] CONVERSIONS Dental, Provider, DDS Social History [...] Description 08/17/2025 9:00 AM EST Office Visit [facility] ADULT DENTAL [address] [place] [address] Miguel Arias DMD [address] [place] [address] 09/01/2025 9:30 AM EST Office Visit [facility] ADULT DENTAL [address] [place] [address] [place] Mosqueda documented as of this encounter Visit Diagnoses Not on filedocumented in this encounter Care Teams House Father Relationship Specialty Start Date End Date Sofia Gonzalez MD 230 [place] [address] PCP - General Family Medicine 10/01/18 Emi Mcclellan [address] [facility] [address] 3rd [place] [address] Gastroenterology 11/26/24 Giovani Yu MD 3300 [facility] [place] [address]- Endocrinology 12/02/24 documented as of this encounter
--- OUTSIDE RECORDS SUMMARY | 2025-08-11 11:01 | XMS_ITS | Encounter Summary ---
Author Organization [employer] Address [address] [facility] [address] 7t [place] [address] Care Team Providers Care Oral Surgery Assistant Name Role Phone Sofia Gonzalez MD Primary Care Provider +1- [phone] Emi Mcclellan Unavailable Reason for Visit * Reason Onset Date Comments possible rs 07/17/2025 Encounter Details Date Type Department Care Team ([facility] st Contact Info) Description 07/17/2025 Telephone [facility] ADULT DENTAL [address] [place] [address] Hesham Urias DDS [address] [place] [address] possible rs Social History Tobacco Use Types [...] unable to. Please reach out to patient documented in this encounter Plan of Treatment Upcoming Encounters Date Type Department Care Team (Late st Contact Info) Description 08/17/2025 9:00 AM EST Office Visit [facility] ADULT DENTAL [address] [place] [address] Miguel Arias DMD [address] [place] [address] 09/01/2025 9:30 AM EST Office Visit [facility] ADULT DENTAL [address] [place] [address] [place] Mosqueda documented as of this encounter [...] documented as of this encounter Care Teams Oral Surgery Assistant Relationship Specialty Start Date End Date Sofia Gonzalez MD [address] [place] [address] PCP - General Family Medicine 10/01/18 Emi Mcclellan [address] [place] [address] 3rd [place] [address] Gastroenterology 11/26/24 Giovani Yu MD [address] [facility] [place] [address]- Endocrinology 12/02/24 documented as of this encounter
--- OUTSIDE RECORDS SUMMARY | 2025-08-11 11:01 | XMS_ITS | Encounter Summary ---
Author Organization [employer] Address [address] [facility] [address] 7t [place] [address] Care Team Providers Care Damaged Freight Inspector Name Role Phone Sofia Gonzalez MD Primary Care Provider +1- [phone] Emi Mcclellan Unavailable Encounter Details Date Type Department Care Team (Late st Contact Info) Description 10/09/2022 Abstract [facility] MEDICINE [address] [place], [place] [phone] Sofia Gonzalez MD 230 [place], [place] [phone] Social History Tobacco Use Types Packs/Day Years [...] hopeless Not at all 10/11/2022 9:51 AM Jessika Arvizu [place] Patient Health Questionnaire -2 Score 0 10/11/2022 9:51 AM EST Jessika Ordaz [place] documented as of this encounter Plan of Treatment Upcoming Encounters Date Type Department Care Team (Late st Contact Info) Description 08/17/2025 9:00 AM EST Office Visit [facility] ADULT DENTAL [address] [place] [address] Miguel Arias, LIBERTAD [address] [place] [address] 09/01/2025 9:30 AM EST Office Visit [facility] ADULT DENTAL [address] [place] [address] [place] Mosqueda documented as of this encounter Visit Diagnoses Not on filedocumented in this encounter Care Teams Damaged Freight Inspector Relationship Specialty Start Date End Date Sofia Gonzalez MD [address] [place] [address] PCP - General Family Medicine 10/01/18 Emi Mcclellan [address] 3rd [place] [address] Gastroenterology 11/26/24 Giovani Yu MD [address] [facility] [place] [address]- Endocrinology 12/02/24 documented as of this encounter
== END 2025-08-11 09:47 | disposition home or self-care (01) ==
LOC: HO.CT 09:46
PROVIDERS: PCP Family Medicine; Visit Provider Physician Assistant Medical
DX: Z12.2 Encounter for screening for malignant neoplasm of respiratory organs (principal); F17.210 Nicotine dependence, cigarettes, uncomplicated
CPT/HCPCS: 71271

== ENCOUNTER → 2025-08-11 09:48 | Outpatient (BNV) | payer MEDICARE, MEDICAID, SELFPAY | PROVIDERS: PCP Family Medicine; Visit Provider Radiology Diagnostic Radiology | DX: Z12.2 Encounter for screening for malignant neoplasm of respiratory organs (principal); Z87.891 Personal history of nicotine dependence; R91.8 Other nonspecific abnormal finding of lung field | CPT/HCPCS: 71271 ==